=== PATIENT | female | born 1990 ===

== ENCOUNTER 2020-04-04 10:05 | Emergency (ER) | payer MEDICAID, SELFPAY ==
--- NOTE | 2020-04-04 10:13 | US_ITS ---
EXAMINATION: ULTRASOUND OB LESS THAN 14 WEEKS VENOUS CLINICAL INFORMATION: Positive hCG 680, 5 weeks with bleeding, IBS transfer, March 16. COMPARISON: None TECHNIQUE: Multiple 2-D grayscale and duplex Doppler transabdominal and transvaginal ultrasound images of the pelvis were obtained. FINDINGS: A single intrauterine gestation is seen with an average gestational sac measurement of 0.3 cm consistent with 4 weeks, 5 days gestation. A definitive embryonic pole was not visualized. A yolk sac was seen measuring 0.25 cm. A heart rate was not visualized. The cervix is closed unremarkable. There is mild free fluid in the cul-de-sac. No adnexal abnormality is identified. The left ovary measures 3.1 x 2.2 x 1.7 . The right ovary measures 3.5 x 1.8 x 1.7 cm. US/US OB <= 14 weeks fetus IMPRESSION: Intrauterine gestational sac showing a yolk sac, but no definitive embryonic pole. Gestational sac measurements are consistent with a 4 week, 5 day gestation. Continued monitoring of beta-hCG levels is recommended and short-term pelvic ultrasound is recommended in 2-3 weeks or as indicated to assess for viability.
--- NOTE | 2020-04-04 10:13 | US_ITS ---
EXAMINATION: ULTRASOUND OB LESS THAN 14 WEEKS VENOUS CLINICAL INFORMATION: Positive hCG 680, 5 weeks with bleeding, IBS transfer, March 16. COMPARISON: None TECHNIQUE: Multiple 2-D grayscale and duplex Doppler transabdominal and transvaginal ultrasound images of the pelvis were obtained. FINDINGS: A single intrauterine gestation is seen with an average gestational sac measurement of 0.3 cm consistent with 4 weeks, 5 days gestation. A definitive embryonic pole was not visualized. A yolk sac was seen measuring 0.25 cm. A heart rate was not visualized. The cervix is closed unremarkable. There is mild free fluid in the cul-de-sac. No adnexal abnormality is identified. The left ovary measures 3.1 x 2.2 x 1.7 . The right ovary measures 3.5 x 1.8 x 1.7 cm. US/US OB transvaginal IMPRESSION: Intrauterine gestational sac showing a yolk sac, but no definitive embryonic pole. Gestational sac measurements are consistent with a 4 week, 5 day gestation. Continued monitoring of beta-hCG levels is recommended and short-term pelvic ultrasound is recommended in 2-3 weeks or as indicated to assess for viability.
--- NOTE | 2020-04-04 10:13 | ED.PREGNANCY ---
HPI - General Chief complaint: Vaginal Bleeding Stated complaint: vag bleed - 5 weeks preg Time Seen by Provider: 04/04/20 10:13 Source: patient Mode of arrival: ambulatory Limitations: no limitations History of Present Illness Complaint: vaginal bleeding Onset (ago): day(s) (yesterday briefly then started again today) Pain Consistency: intermittent Severity: mild Quality: Cramping Radiation: pelvis Relieving factors: none Exacerbating factors: none Associated symptoms: vaginal bleeding (scant but brb saw a few tiny clots she states) Vaginal discharge: other (has white discharge since she is using progesterone vaginal suppositories) Vaginal bleeding: light Number of Weeks : 5 weeks had her IVF transfer on march 16 but embryo made 2 weeks prior OB History - Current : other (seen at [facility] [place] just had first IVF transfer) OB History - Previous Pregnancies: other (under IVF care) care: followed by OB Related Data : 1 Allergies Allergy/AdvReac Type Severity Reaction Status Date / Time No Known Allergies Allergy Verified 04/04/20 10:06 Review of Systems Review of Systems: Constitutional : No Fever, No Chills ENT/Mouth : No sore throat, No Rhinorrhea Eyes: No Eye Pain, No Redness Cardiovascular : No Chest Pain, No SOB Respiratory : No Cough, No Sputum, No Wheezing Gastrointestinal : no Nausea, No Vomiting, No Diarrhea, positive abdominal pain, Genitourinary : positive irregular bleeding, No Dysuria, No Urinary Frequency, positive pelvic pain Musculoskeletal : No Myalgias Skin : No rash Neuro : No Weakness, No Headache Psych : No Anxiety/Panic, No Depression Heme/Lymph: No bruising, No Lymphadenopathy Endocrine : No Polyuria, No Polydipsia All other systems reviewed and are negative [facility] Past Medical History Medical History Asthma : 1 Social History Social History (Updated 04/04/20 @ 10:34 by Silvia Rivera DO) Alcohol intake: never Smoking Status: Never smoker Use of substances other than those prescribed or required for medical reasons: No Advance Directives: No Advance Directives Information Provided: Yes Physical Exam Vital Signs: Vital Signs: Last Vital Signs Temp 98.2 F 04/04/20 12:39 Pulse 63 04/04/20 12:39 Resp 18 04/04/20 12:39 BP 120/65 12/20/20 12:39 Pulse Ox 98 04/04/20 12:39 Body Mass Index 34.7 Appearance: Alert. Oriented X3. No acute distress. Eyes: Pupils equal, round and reactive to light. ENT: Pharynx normal. Neck: Normal inspection. Neck supple. CVS: Normal heart rate and rhythm. Pulses normal. Respiratory: No respiratory distress. Breath sounds normal. Abdomen: Soft and nontender. : os closed, scant pink white discharge noted, no clots Skin: Skin warm and dry. Normal skin color. Normal skin turgor. Extremities: No lower extremity edema. No calf ttp Neuro: Oriented X 3. No motor deficit. No sensory deficit. Course Course Course Narrative: patient to leave prior to full US reports - Rh positive, will follow with her OB Procedures Perimortem Number of Weeks : 5 weeks had her IVF transfer on march 16 but embryo made 2 weeks prior MDM - OB/Uterine Contractions MDM Narrative Medical decision making narrative: 29 yo female G1 s/p IVF transfer on 03/16 - here with cramping and brb spotting, no recent intercourse - will need labs, RH status, quant and US to evaluate , dispo per results and findings. Lab Data Result diagrams: 04/04/20 10:42 04/04/20 10:42 Labs: Lab Results 04/04/20 04/04/20 04/04/20 Range/Units 10:42 10:42 10:42 WBC 11.5 H (4.8-10.8) X10*3/uL RBC 4.19 L (4.20-5.50) X10*6/uL Hgb 11.1 L (12.0-16.0) g/dl Hct 35.6 L (37-47) % MCV 85.0 (80-98) fL MCH 26.5 L (27.0-33.0) pg MCHC 31.2 (31.0-35.0) g/dl RDW 14.7 (11.0-16.0) % Plt Count 371 (160-400) X10*3/uL MPV 10.0 (9.4-12.3) fL Immature Gran % (Auto) 0.3 (0.0-0.4) % Neut % (Auto) 73.4 H (45-73) % Lymph % (Auto) 17.1 L (20-40) % [place] % (Auto) 5.0 (2-11) % Eos % (Auto) 3.7 (0-4) % Baso % (Auto) 0.5 (0-2) % Lymph # (Auto) 2.0 (1.2-4.9) X10*3/uL [place] # (Auto) 0.6 (0.1-1.2) X10*3/uL Eos # (Auto) 0.4 (0.0-0.4) X10*3/uL Baso # (Auto) 0.1 (0.0-0.2) X10*3/uL Abs Immat Gran (auto) 0.03 (0.00-0.03) X10*3/uL Absolute Neuts (auto) 8.4 H (2.0-8.3) X10*3/uL Absolute Nucleated RBC 0.000 (0.0-0.012) X10*3/uL Nucleated RBC % (auto) 0.0 (0.0-0.2) /100WBC Hold Blue Top SEE NOTE Sodium 138 (135-145) mmol/L Potassium 4.3 (3.3-5.1) mmol/l Chloride 105 (96-108) mmol/L Carbon Dioxide 25 (22-29) mmol/L Anion Gap 12 (12-20) BUN 13 (9-16) mg/dL Creatinine 0.78 (0.5-1.4) mg/dL Estim Creat Clear Calc 108.4 Estimated GFR > 60 Random Glucose 94 (60-115) mg/dL Calcium 8.7 (8.4-10.2) mg/dL Beta HCG, Quant 680 mIU/mL Urine Color Urine Appearance Urine pH (5.0-8.0) Ur Specific [place] (1.005-1.025) Urine Protein (NEG-TRACE) MG/DL Urine Glucose (UA) (NEG) MG/DL Urine Ketones (NEG) MG/DL Urine Blood (NEG) Urine Nitrite (NEG) Ur Leukocyte Esterase (NEG) Urine RBC (0) /HPF Urine WBC (0-4) /HPF Ur Squamous Epith Cells /LPF Amorphous Sediment /LPF Urine Bacteria /LPF Urine Mucus /LPF Blood Type 04/04/20 04/04/20 Range/Units 10:42 10:49 WBC (4.8-10.8) X10*3/uL RBC (4.20-5.50) X10*6/uL Hgb (12.0-16.0) g/dl Hct (37-47) % MCV (80-98) fL MCH (27.0-33.0) pg MCHC (31.0-35.0) g/dl RDW (11.0-16.0) % Plt Count (160-400) X10*3/uL MPV (9.4-12.3) fL Immature Gran % (Auto) (0.0-0.4) % Neut % (Auto) (45-73) % Lymph % (Auto) (20-40) % [place] % (Auto) (2-11) % Eos % (Auto) (0-4) % Baso % (Auto) (0-2) % Lymph # (Auto) (1.2-4.9) X10*3/uL [place] # (Auto) (0.1-1.2) X10*3/uL Eos # (Auto) (0.0-0.4) X10*3/uL Baso # (Auto) (0.0-0.2) X10*3/uL Abs Immat Gran (auto) (0.00-0.03) X10*3/uL Absolute Neuts (auto) (2.0-8.3) X10*3/uL Absolute Nucleated RBC (0.0-0.012) X10*3/uL Nucleated RBC % (auto) (0.0-0.2) /100WBC Hold Blue Top Sodium (135-145) mmol/L Potassium (3.3-5.1) mmol/l Chloride (96-108) mmol/L Carbon Dioxide (22-29) mmol/L Anion Gap (12-20) BUN (9-16) mg/dL Creatinine (0.5-1.4) mg/dL Estim Creat Clear Calc Estimated GFR Random Glucose (60-115) mg/dL Calcium (8.4-10.2) mg/dL Beta HCG, Quant mIU/mL Urine Color DARK YELLOW Urine Appearance HAZY Urine pH 6.0 (5.0-8.0) Ur Specific [place] >= 1.030 H (1.005-1.025) Urine Protein TRACE (NEG-TRACE) MG/DL Urine Glucose (UA) NEG (NEG) MG/DL Urine Ketones NEG (NEG) MG/DL Urine Blood 3+ H (NEG) Urine Nitrite NEG (NEG) Ur Leukocyte Esterase NEG (NEG) Urine RBC 15-29 H (0) /HPF Urine WBC 1-4 (0-4) /HPF Ur Squamous Epith Cells 2+ /LPF Amorphous Sediment 2+ /LPF Urine Bacteria TRACE /LPF Urine Mucus 3+ /LPF Blood Type A Positive Discharge Plan Discharge Clinical Impression: Threatened Patient Disposition: Home, Self-Care Instructions: Threatened Miscarriage (ED) Additional Instructions: return to ED for any worsening symptoms or concerns your quant was 680 it needs to be rechecked in 2 days, you left prior to your formal US read please call your OBGYN tomorrow AM - from prelim there is IUP with correlates with your dates, no obvious ectopic avoid strenuous activity and no intercourse Stand Alone Forms: Work/School Release
[2020-04-04 10:22] VITALS: BP 120/64; PULSE 74; RESP 16; TEMP 36.6; O2SAT 98; BMI 34.7
[2020-04-04 10:53] LABS: MANUAL DIFF FLAG NO
[2020-04-04 11:00] LABS: Basophils Absolute Auto 0.1 X10*3/uL (0.0-0.2); Basophils Percent Auto 0.5 % (0-2); Eosinophils Absolute Auto 0.4 X10*3/uL (0.0-0.4); Eosinophils Percent Auto 3.7 % (0-4); Hematocrit 35.6 % (37-47); Hemoglobin 11.1 g/dl (12.0-16.0); Imm Gran Abs Auto 0.03 X10*3/uL (0.00-0.03); Imm Gran Pct Auto 0.3 % (0.0-0.4); Lymphocytes Percent Auto 17.1 % (20-40); Mean Corpuscular HGB Conc 31.2 g/dl (31.0-35.0); Mean Corpuscular Hemoglobin 26.5 pg (27.0-33.0); Monocytes Absolute Auto 0.6 X10*3/uL (0.1-1.2); Neutrophils Absolute Auto 8.4 X10*3/uL (2.0-8.3); Neutrophils Percent Auto 73.4 % (45-73); Platelet Count 371 X10*3/uL (160-400); Red Blood Count 4.19 X10*6/uL (4.20-5.50); Red Cell Distribution Width 14.7 % (11.0-16.0); White Blood Count 11.5 X10*3/uL (4.8-10.8)
[2020-04-04 11:08] LABS: Glucose Urine UA NEG (NEG); Leukocyte Esterase Urine NEG (NEG); Nitrite Urine NEG (NEG); Specific Gravity - Urine >= 1.030 (1.005-1.025); Urine Blood 3+ (NEG); Urine Ketones NEG (NEG); Urine Protein TRACE MG/DL (NEG-TRACE)
[2020-04-04 11:10] LABS: Appearance Urine HAZY; Color Urine DARK YELLOW
[2020-04-04 11:18] LABS: Amorphous Sediment Urine 2+ /LPF; Bacteria Urine TRACE /LPF; Mucus Urine 3+ /LPF; Squamous Epithelial Cell Urine 2+ /LPF
[2020-04-04 11:25] VITALS: BP 118/65; PULSE 71; RESP 18; TEMP 36.7; O2SAT 98
[2020-04-04 11:28] LABS: Anion Gap 12 (12-20); Blood Urea Nitrogen 13 mg/dL (9-16); Calcium 8.7 mg/dL (8.4-10.2); Carbon Dioxide 25 mmol/L (22-29); Chloride 105 mmol/L (96-108); Creatinine Clr Calc Pharmacy 108.4; Estimated Glomerular Filt Rate > 60; Glucose Random 94 mg/dL (60-115); Potassium 4.3 mmol/l (3.3-5.1); Sodium 138 mmol/L (135-145)
[2020-04-04 11:35] LABS: HCG Quantitative 680 mIU/mL
[2020-04-04 12:39] VITALS: BP 120/65; PULSE 63; RESP 18; TEMP 36.8; O2SAT 98
== END 2020-04-04 13:40 | disposition home or self-care (01) ==
PROVIDERS: Emergency Provider Emergency Medicine; PCP Family Medicine
DX: O20.0 Threatened abortion (principal); Z3A.01 Less than 8 weeks gestation of pregnancy
CPT/HCPCS: 36415; 76801; 76817; 80048; 81001; 84702; 85025; 86900; 86901; 99284

== ENCOUNTER 2020-04-11 15:30 | Emergency (ER) | payer MEDICAID, SELFPAY ==
[2020-04-11 17:43] VITALS: BP 135/73; PULSE 86; RESP 18; TEMP 37; O2SAT 100; BMI 34.7
--- NOTE | 2020-04-11 20:23 | US_ITS ---
EXAMINATION: ULTRASOUND PELVIC, COMPLETE CLINICAL INFORMATION: Vaginal bleeding. IVF . COMPARISON: Pelvic ultrasound 02/18/2018 TECHNIQUE: Transvaginal: Used to better visualize pelvic structures Transabdominal: Not adequate for visualization Spectral Doppler and color Doppler exam was utilized. Clinical: Transfer date 12/07/2020. Gestational age 5 weeks 5 days. FINDINGS: UTERUS: There is a single intrauterine gestation. There is a intrauterine gestational sac with a yolk sac. There is a pole. heart rate 120 bpm. [place]-rump length of the pole is 0.33 cm. Dating by this measurement is 6 weeks 0 days. JUANA 12/05/2020. There is a small subchorionic bleed adjacent to the gestational sac. There is nabothian cysts at the cervix ADNEXA: Ovarian vascularity:Doppler demonstrates both arterial and venous vascular flow in the right and left ovary. No evidence of ovarian torsion. Right Ovary: 3 x 2 x 2.4 cm. Right ovarian volume 7.5 mL Left Ovary: 2.7 x 1.7 x 1.9 cm. Left ovarian volume 4.6 mL Cul-de-sac: No Fluid US/US OB limited IMPRESSION: 1. Single intrauterine gestation with estimated gestational age by this exam of 6 weeks 0 days. JUANA 12/05/2020. 2. Small subchorionic bleed.
--- NOTE | 2020-04-11 20:24 | US_ITS ---
EXAMINATION: ULTRASOUND PELVIC, COMPLETE CLINICAL INFORMATION: Vaginal bleeding. IVF . COMPARISON: Pelvic ultrasound 02/18/2018 TECHNIQUE: Transvaginal: Used to better visualize pelvic structures Transabdominal: Not adequate for visualization Spectral Doppler and color Doppler exam was utilized. Clinical: Transfer date 12/07/2020. Gestational age 5 weeks 5 days. FINDINGS: UTERUS: There is a single intrauterine gestation. There is a intrauterine gestational sac with a yolk sac. There is a pole. heart rate 120 bpm. [place]-rump length of the pole is 0.33 cm. Dating by this measurement is 6 weeks 0 days. JUANA 12/05/2020. There is a small subchorionic bleed adjacent to the gestational sac. There is nabothian cysts at the cervix ADNEXA: Ovarian vascularity:Doppler demonstrates both arterial and venous vascular flow in the right and left ovary. No evidence of ovarian torsion. Right Ovary: 3 x 2 x 2.4 cm. Right ovarian volume 7.5 mL Left Ovary: 2.7 x 1.7 x 1.9 cm. Left ovarian volume 4.6 mL Cul-de-sac: No Fluid US/US OB transvaginal IMPRESSION: 1. Single intrauterine gestation with estimated gestational age by this exam of 6 weeks 0 days. JUANA 12/05/2020. 2. Small subchorionic bleed.
--- NOTE | 2020-04-11 20:25 | ED.PREGNANCY ---
HPI - General Chief complaint: Abdominal Pain Stated complaint: vaginal bleeding Time Seen by Provider: 04/11/20 20:16 Source: patient Mode of arrival: ambulatory Limitations: no limitations History of Present Illness HPI Narrative: Patient comes to the emergency room complaining of vaginal bleeding. Patient estimates that she is 6 weeks of gestational age, she is a . Patient states since March 16 she has been spotting, on March 16 patient had an in-vitro fertilization transfer. Patient was seen here on April 04, ultrasound showed room sac but no problem. Patient states on April 08 she went to see her OBGYN in [place], she was told that there was a pole and a heartbeat. Patient states she has used 3-4 panty liners starting at 15:00 today, complaining of cramping Related Data Allergies Allergy/AdvReac Type Severity Reaction Status Date / Time No Known Allergies Allergy Verified 04/04/20 10:06 Review of Systems Review of Systems: Constitutional : No Weight loss, No Fever, No Chills, No Night Sweats, No Fatigue, No Malaise ENT/Mouth : No Hearing loss, No Ear Pain, No Nasal Congestion, No Sinus Pain, No Hoarseness, No sore throat, No Rhinorrhea, No Swallowing Difficulty Eyes: No Eye Pain, No Swelling, No Redness, No Foreign Body, No Discharge, No Vision Changes Cardiovascular : No Chest Pain, No SOB, No Dyspnea on Exertion, No Orthopnea, No Edema, No Palpitations Respiratory : No Cough, No Sputum, No Wheezing, No Smoke Exposure, No Dyspnea Gastrointestinal : No Nausea, No Vomiting, No Diarrhea, No Constipation, No abdominal Pain, No Hematochezia, No Melena Genitourinary : Denies dysuria, frequency. Patient complaining of cramping and vaginal bleeding Musculoskeletal : No joint pain, No Myalgias, No Joint Swelling Skin : No Skin Lesions, No rash Neuro : No Weakness, No Numbness, No Paresthesias, No Loss of Consciousness, No Dizziness, No Headache Psych : No Anxiety/Panic, No Depression, No SI/HI/AH/VH, No Social Issues, Heme/Lymph: No Bruising, No Bleeding,No Lymphadenopathy Endocrine : No Polyuria, No Polydipsia, No Temperature Intolerance PMFSH Past Medical History Medical History Asthma Social History Social History (Updated 04/04/20 @ 10:34 by Silvia Rivera DO) Alcohol intake: never Smoking Status: Never smoker Use of substances other than those prescribed or required for medical reasons: No Advance Directives: No Advance Directives Information Provided: No Physical Exam Vital Signs: Vital Signs: Last Vital Signs Temp 98.5 F 04/11/20 22:19 Pulse 82 04/11/20 22:19 Resp 16 04/11/20 22:19 BP 110/62 04/11/20 22:19 Pulse Ox 99 04/11/20 22:19 Body Mass Index 34.7 Appearance: Alert. Oriented X3. No acute distress. Eyes: Pupils equal, round and reactive to light. ENT: Pharynx normal. Neck: Normal inspection. Neck supple. No lymph nodes noted. No crepitus CVS: Normal heart rate and rhythm. Pulses normal. Normal S1 and S2 Respiratory: No respiratory distress. Breath sounds normal. No Wheezing. No rales Abdomen: Soft and nontender. No rigidity. No distention. good BS x4 : Moderate amount of blood in the vaginal canal, there are strands of mucus material protruding from the cervix, no active cervical bleeding Skin: Skin warm and dry. Normal skin color. Normal skin turgor. Extremities: No lower extremity edema. No lower extremity edema. No Lacerations. No Rash Neuro: Oriented X 3. No motor deficit. No sensory deficit. Moving all extermities. No slurred speech. Course Course Course Narrative: I discussed the ultrasound with the patient, I explained to her that there is a small subchorionic bleed, at this time, there is a pole with heart rate present. However, the subchorionic bleed may be threatened the . Patient aware that has her could be threatened right knee is subchorionic bleed, however, she may still have a full-term . At this time prognosis is guarded. MDM - OB/Uterine Contractions Lab Data Result diagrams: 04/11/20 20:34 04/11/20 20:34 Labs: Lab Results 04/11/20 04/11/20 04/11/20 Range/Units 20:34 20:34 20:34 WBC 17.3 H (4.8-10.8) X10*3/uL RBC 4.61 (4.20-5.50) X10*6/uL Hgb 12.4 (12.0-16.0) g/dl Hct 39.0 (37-47) % MCV 84.6 (80-98) fL MCH 26.9 L (27.0-33.0) pg MCHC 31.8 (31.0-35.0) g/dl RDW 14.6 (11.0-16.0) % Plt Count 442 H (160-400) X10*3/uL MPV 9.8 (9.4-12.3) fL Immature Gran % (Auto) 0.3 (0.0-0.4) % Neut % (Auto) 69.7 (45-73) % Lymph % (Auto) 21.7 (20-40) % [place] % (Auto) 4.8 (2-11) % Eos % (Auto) 2.9 (0-4) % Baso % (Auto) 0.6 (0-2) % Lymph # (Auto) 3.8 (1.2-4.9) X10*3/uL [place] # (Auto) 0.8 (0.1-1.2) X10*3/uL Eos # (Auto) 0.5 H (0.0-0.4) X10*3/uL Baso # (Auto) 0.1 (0.0-0.2) X10*3/uL Abs Immat Gran (auto) 0.05 H (0.00-0.03) X10*3/uL Absolute Neuts (auto) 12.1 H (2.0-8.3) X10*3/uL Absolute Nucleated RBC 0.000 (0.0-0.012) X10*3/uL Nucleated RBC % (auto) 0.0 (0.0-0.2) /100WBC Sodium 137 (135-145) mmol/L Potassium 4.1 (3.3-5.1) mmol/l Chloride 105 (96-108) mmol/L Carbon Dioxide 25 (22-29) mmol/L Anion Gap 11 L (12-20) BUN 9 (9-16) mg/dL Creatinine 0.79 (0.5-1.4) mg/dL Estim Creat Clear Calc 107.0 Estimated GFR > 60 Random Glucose 105 (60-115) mg/dL Calcium 8.8 (8.4-10.2) mg/dL Total Bilirubin 0.3 (0.0-1.0) mg/dL Direct Bilirubin < 0.2 (0.0-0.5) mg/dL AST 13 (5-31) U/L ALT 14 (0-31) U/L Alkaline Phosphatase 73 (39-117) U/L Total Protein 6.9 (6.5-8.0) g/dL Albumin 4.2 (3.5-5.0) g/dL Beta HCG, Quant 4911 mIU/mL Urine Color Urine Appearance Urine pH (5.0-8.0) Ur Specific [place] (1.005-1.025) Urine Protein (NEG-TRACE) MG/DL Urine Glucose (UA) (NEG) MG/DL Urine Ketones (NEG) MG/DL Urine Blood (NEG) Urine Nitrite (NEG) Ur Leukocyte Esterase (NEG) Urine RBC (0) /HPF Urine WBC (0-4) /HPF Ur Squamous Epith Cells /LPF Urine Bacteria /LPF Urine Mucus /LPF Blood Type A Positive 04/11/20 Range/Units 20:35 WBC (4.8-10.8) X10*3/uL RBC (4.20-5.50) X10*6/uL Hgb (12.0-16.0) g/dl Hct (37-47) % MCV (80-98) fL MCH (27.0-33.0) pg MCHC (31.0-35.0) g/dl RDW (11.0-16.0) % Plt Count (160-400) X10*3/uL MPV (9.4-12.3) fL Immature Gran % (Auto) (0.0-0.4) % Neut % (Auto) (45-73) % Lymph % (Auto) (20-40) % [place] % (Auto) (2-11) % Eos % (Auto) (0-4) % Baso % (Auto) (0-2) % Lymph # (Auto) (1.2-4.9) X10*3/uL [place] # (Auto) (0.1-1.2) X10*3/uL Eos # (Auto) (0.0-0.4) X10*3/uL Baso # (Auto) (0.0-0.2) X10*3/uL Abs Immat Gran (auto) (0.00-0.03) X10*3/uL Absolute Neuts (auto) (2.0-8.3) X10*3/uL Absolute Nucleated RBC (0.0-0.012) X10*3/uL Nucleated RBC % (auto) (0.0-0.2) /100WBC Sodium (135-145) mmol/L Potassium (3.3-5.1) mmol/l Chloride (96-108) mmol/L Carbon Dioxide (22-29) mmol/L Anion Gap (12-20) BUN (9-16) mg/dL Creatinine (0.5-1.4) mg/dL Estim Creat Clear Calc Estimated GFR Random Glucose (60-115) mg/dL Calcium (8.4-10.2) mg/dL Total Bilirubin (0.0-1.0) mg/dL Direct Bilirubin (0.0-0.5) mg/dL AST (5-31) U/L ALT (0-31) U/L Alkaline Phosphatase (39-117) U/L Total Protein (6.5-8.0) g/dL Albumin (3.5-5.0) g/dL Beta HCG, Quant mIU/mL Urine Color YELLOW Urine Appearance HAZY Urine pH 6.0 (5.0-8.0) Ur Specific [place] >= 1.030 H (1.005-1.025) Urine Protein TRACE (NEG-TRACE) MG/DL Urine Glucose (UA) NEG (NEG) MG/DL Urine Ketones NEG (NEG) MG/DL Urine Blood 3+ H (NEG) Urine Nitrite NEG (NEG) Ur Leukocyte Esterase NEG (NEG) Urine RBC 30-49 H (0) /HPF Urine WBC 1-4 (0-4) /HPF Ur Squamous Epith Cells 1+ /LPF Urine Bacteria 1+ /LPF Urine Mucus 2+ /LPF Blood Type Imaging Data Obstetric ultrasound: Radiologist's impression: UTERUS: There is a single intrauterine gestation. There is a intrauterine gestational sac with a yolk sac. There is a pole. heart rate 120 bpm. [place]-rump length of the pole is 0.33 cm. Dating by this measurement is 6 weeks 0 days. JUANA 12/05/2020. There is a small subchorionic bleed adjacent to the gestational sac. There is nabothian cysts at the cervix ADNEXA: Ovarian vascularity:Doppler demonstrates both arterial and venous vascular flow in the right and left ovary. No evidence of ovarian torsion. Right Ovary: 3 x 2 x 2.4 cm. Right ovarian volume 7.5 mL Left Ovary: 2.7 x 1.7 x 1.9 cm. Left ovarian volume 4.6 mL Cul-de-sac: No Fluid US/US OB transvaginal IMPRESSION: 1. Single intrauterine gestation with estimated gestational age by this exam of 6 weeks 0 days. JUANA 12/05/2020. 2. Small subchorionic bleed. Discharge Plan Discharge Clinical Impression: Threatened Patient Disposition: Home, Self-Care Instructions: Threatened Miscarriage (ED) Additional Instructions: Your ultrasound shows that there is a small subchorionic bleed. The fetus is present in the uterus and does have a heart rate present. You are 6 weeks 0 days by ultrasound. The subchorionic bleed could cause a loss of , but a normal could still be possible. You need pelvic rest, no sexual intercourse. If you have any worsening bleeding, worsening cramping, any new symptoms, please return to the emergency room or call 911. 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
[2020-04-11 20:41] LABS: Basophils Absolute Auto 0.1 X10*3/uL (0.0-0.2); Basophils Percent Auto 0.6 % (0-2); Eosinophils Absolute Auto 0.5 X10*3/uL (0.0-0.4); Eosinophils Percent Auto 2.9 % (0-4); Hemoglobin 12.4 g/dl (12.0-16.0); Imm Gran Abs Auto 0.05 X10*3/uL (0.00-0.03); Imm Gran Pct Auto 0.3 % (0.0-0.4); Lymphocytes Absolute Auto 3.8 X10*3/uL (1.2-4.9); Lymphocytes Percent Auto 21.7 % (20-40); MANUAL DIFF FLAG NO; Mean Corpuscular HGB Conc 31.8 g/dl (31.0-35.0); Mean Corpuscular Hemoglobin 26.9 pg (27.0-33.0); Mean Corpuscular Volume 84.6 fL (80-98); Mean Platelet Volume 9.8 fL (9.4-12.3); Monocytes Absolute Auto 0.8 X10*3/uL (0.1-1.2); Monocytes Percent Auto 4.8 % (2-11); Neutrophils Absolute Auto 12.1 X10*3/uL (2.0-8.3); Neutrophils Percent Auto 69.7 % (45-73); Platelet Count 442 X10*3/uL (160-400); Red Blood Count 4.61 X10*6/uL (4.20-5.50); Red Cell Distribution Width 14.6 % (11.0-16.0); White Blood Count 17.3 X10*3/uL (4.8-10.8)
[2020-04-11 20:59] LABS: Glucose Urine UA NEG (NEG); Leukocyte Esterase Urine NEG (NEG); Nitrite Urine NEG (NEG); Specific Gravity - Urine >= 1.030 (1.005-1.025); Urine Blood 3+ (NEG); Urine Ketones NEG (NEG); Urine Protein TRACE MG/DL (NEG-TRACE)
[2020-04-11 21:03] LABS: Alanine Aminotransferase 14 U/L (0-31); Albumin Level 4.2 g/dL (3.5-5.0); Alkaline Phosphatase 73 U/L (39-117); Anion Gap 11 (12-20); Aspartate Amino Transferase 13 U/L (5-31); Bilirubin Direct < 0.2 mg/dL (0.0-0.5); Bilirubin Total 0.3 mg/dL (0.0-1.0); Blood Urea Nitrogen 9 mg/dL (9-16); Calcium 8.8 mg/dL (8.4-10.2); Carbon Dioxide 25 mmol/L (22-29); Chloride 105 mmol/L (96-108); Estimated Glomerular Filt Rate > 60; Glucose Random 105 mg/dL (60-115); Potassium 4.1 mmol/l (3.3-5.1); Sodium 137 mmol/L (135-145); Total Protein 6.9 g/dL (6.5-8.0)
[2020-04-11 21:04] LABS: Appearance Urine HAZY; Color Urine YELLOW
[2020-04-11 21:09] LABS: HCG Quantitative 4911 mIU/mL
[2020-04-11 21:17] LABS: Bacteria Urine 1+ /LPF; Mucus Urine 2+ /LPF; RBC Urine 30-49 /HPF (0); Squamous Epithelial Cell Urine 1+ /LPF
[2020-04-11 22:19] VITALS: BP 110/62; PULSE 82; RESP 16; TEMP 36.9; O2SAT 99
== END 2020-04-11 23:17 | disposition home or self-care (01) ==
PROVIDERS: Emergency Provider Emergency Medicine; PCP Family Medicine
DX: O20.0 Threatened abortion (principal); Z3A.01 Less than 8 weeks gestation of pregnancy
CPT/HCPCS: 36415; 76815; 76817; 80048; 80076; 81001; 81003; 84702; 85025; 86900; 86901; 99284; 99285

== ENCOUNTER 2020-09-03 12:05 | Outpatient (REF) | payer MEDICAID, SELFPAY ==
[2020-09-03 12:25] LABS: COVID-19 Test Negative (Negative)
== END 2020-09-03 12:06 | disposition home or self-care (01) ==
LOC: HO.LAB 12:05
PROVIDERS: Visit Provider Internal Medicine
DX: Z20.822 Contact with and (suspected) exposure to COVID-19 (principal)
CPT/HCPCS: 36415; 87635; C9803

== ENCOUNTER → 2020-09-03 12:39 | Outpatient (BNVA) | payer SELFPAY | PROVIDERS: PCP Family Medicine | DX: Z11.1 Encounter for screening for respiratory tuberculosis (principal) ==

== ENCOUNTER 2020-10-27 05:07 | Emergency (ER) | payer MEDICAID, SELFPAY ==
[2020-10-27 05:21] VITALS: BP 126/67; PULSE 107; RESP 18; TEMP 37.3; O2SAT 96; BMI 36.6
[2020-10-27 05:46] LABS: IDNOW Serial# 08D9AD1C
[2020-10-27 05:47] LABS: COVID-19 Test Negative (Negative)
--- NOTE | 2020-10-27 06:33 | ED.URI ---
HPI - URI/Sore Throat General Chief Complaint: Upper Respiratory Symptoms Stated Complaint: congested, SoB Time Seen by Provider: 10/27/20 06:33 Source: patient Mode of arrival: ambulatory Limitations: no limitations History of Present Illness MD elicited complaint: cough and nasal congestion Pertinent past history: asthma Onset (ago): day(s) (last several ) Consistency: progressively worsening Severity: moderate Description of mucous: clear Able to tolerate fluids by mouth: Yes Exacerbating factors: nothing Relieving factors: other (tried her INH with some relief) Associated symptoms: chills, nasal congestion, cough and shortness of breath Treatments prior to arrival: other Related Data Previous Rx's Medication Instructions Recorded albuterol sulfate 2 puff INHALATION QID PRN #6.7 g 10/27/20 amoxicillin 500 mg PO Q12H 7 Days #14 cap 10/27/20 prednisone 40 mg PO DAILY 4 Days #8 tab 10/27/20 Allergies Allergy/AdvReac Type Severity Reaction Status Date / Time No Known Allergies Allergy Verified 04/04/20 10:06 Review of Systems Review of Systems: Constitutional : No Fever, No Chills ENT/Mouth : No sore throat, pos Rhinorrhea, No Swallowing Difficulty Eyes: No Eye Pain, No Swelling, No Redness Cardiovascular : No Chest Pain, positive SOB, No Orthopnea, no Edema Respiratory :pos Cough, pos Sputum, pos Wheezing, positive dyspnea Gastrointestinal : No Nausea, No Vomiting, No Diarrhea, No abdominal Pain, No Hematochezia, No Melena Genitourinary : No Dysuria, No Urinary Frequency, No Hematuria Musculoskeletal : No joint pain, No Myalgias Skin : No Skin Lesions, No rash Neuro : No Weakness, No Numbness, No Dizziness, No Headache Psych : No Anxiety/Panic, No Depression Heme/Lymph: No Bruising, No Lymphadenopathy Endocrine : No Polyuria, No Polydipsia All other systems reviewed and are negative [facility] Past Medical History Medical History Asthma Social History Social History (Updated 10/27/20 @ 06:56 by Silvia Rivera DO) Alcohol intake: never Patient Tobacco Use Status: Never used Tobacco Advance Directives: No Patient : Yes Physical Exam Vital Signs: Vital Signs: Last Vital Signs Temp 99.2 F 10/27/20 05:21 Pulse 105 H 10/27/20 07:00 Resp 18 10/27/20 05:21 BP 126/67 10/27/20 05:21 Pulse Ox 96 10/27/20 05:21 Body Mass Index 36.6 Appearance: Alert. Oriented X3. No acute distress. Eyes: Pupils equal, round and reactive to light. ENT: Pharynx normal. Neck: Normal inspection. Neck supple. CVS: Normal heart rate and rhythm. Pulses normal. Respiratory: No respiratory distress. Breath sounds mild diffuse end exp wheezes Abdomen: Soft and non-tender. Skin: Skin warm and dry. Normal skin color. Normal skin turgor. Extremities: No lower extremity edema. No calf ttp Neuro: Oriented X 3. No motor deficit. No sensory deficit. Course Course Course Narrative: sats 98%, lungs are CTAB, stable for DC feels better MDM - URI/Sore Throat MDM Narrative Medical decision making narrative: 30 yo female approx 4 months here with hx of asthma and URI symptoms no signs of edema, no chest pain to suggest CHF or PE - at this time needs neb, steroids and amoxicillin for bronchitis, no resp distress, not toxic, URI suspected Lab Data Labs: Lab Results 10/27/20 Range/Units 05:25 COVID-19 (LINDY) Negative (Negative) COVID-19 Clin Com See Note Discharge Plan Discharge Clinical Impression: Bronchitis Patient Disposition: Home, Self-Care Instructions: Acute Bronchitis (ED) Additional Instructions: return to ED for any worsening symptoms or concerns COVID was negative please follow up with your doctor if you are improving Prescriptions: New amoxicillin 500 mg capsule 500 mg PO Q12H 7 Days Qty: 14 RF: 0 prednisone 20 mg tablet 40 mg PO DAILY 4 Days Qty: 8 RF: 0 albuterol sulfate 90 mcg/actuation HFA aerosol inhaler 2 puff inhalation QID PRN (Reason: shortness of breath or wheezing) Qty: 6.7 RF: 0 Stand Alone Forms: Work/School Release
[2020-10-27] MEDS: Albuterol Sulfate (0.083%) 2.5 MG/3 ML VIAL.NEB INHALE (06:53)
[2020-10-27 07:00] VITALS: PULSE 105; O2SAT 96
[2020-10-27] MEDS: predniSONE 20 MG TABLET 40 MG PO (07:11)
[2020-10-27] MEDS: Amoxicillin 500 MG CAPSULE PO (07:12)
== END 2020-10-27 07:20 | disposition home or self-care (01) ==
PROVIDERS: Emergency Provider Emergency Medicine; PCP Family Medicine
DX: J20.9 Acute bronchitis, unspecified (principal); R06.02 Shortness of breath; Z20.822 Contact with and (suspected) exposure to COVID-19; Z79.899 Other long term (current) drug therapy
CPT/HCPCS: 36415; 87635; 94640; 99283

== ENCOUNTER 2021-01-06 17:14 | Emergency (ER) | payer MEDICAID, SELFPAY ==
[2021-01-06 18:28] VITALS: BP 123/73; PULSE 101; RESP 20; TEMP 36.8; O2SAT 98; BMI 38.7
== END 2021-01-06 21:22 | disposition left against medical advice (07) ==
PROVIDERS: Emergency Provider Emergency Medicine; PCP Family Medicine
DX: O26.93 Pregnancy related conditions, unspecified, third trimester (principal); Z3A.30 30 weeks gestation of pregnancy
CPT/HCPCS: 99281

== ENCOUNTER 2021-01-07 09:11 | Emergency (ER) | payer MEDICAID, SELFPAY ==
--- NOTE | ~2021-01-07 | XR_ITS ---
EXAMINATION: XR CHEST CLINICAL INFORMATION: Covid pneumonia COMPARISON: Previous chest x-ray March 2015 TECHNIQUE: Frontal view of the chest was obtained. FINDINGS: The cardiac and mediastinal contours are normal. There are new nodular opacities seen in the right upper lung questionable for infiltrate. There is no pleural effusion or pneumothorax. Bony structures are unremarkable. XR/XR chest 1V IMPRESSION: Question right upper lobe infiltrate.
--- NOTE | ~2021-01-07 | NM_ITS ---
EXAMINATION: DC LUNG IMAGE PERFUSION CLINICAL INFORMATION: 38 weeks , COVID positive with hemoptysis. COMPARISON: None TECHNIQUE: Following intravenous administration of 1.5 mCi of technetium 99 and MAA, imaging of both lungs were obtained in multiple projections. Ventilation study was not performed. FINDINGS: On ventilation study there is normal aeration of all segments of both lungs without any segmental or subsegmental defects. Ventilation study was not performed. NM/DC pul perfusion IMPRESSION: Normal perfusion study. No evidence of PE.
[2021-01-07 09:39] VITALS: BP 124/61; PULSE 98; RESP 18; TEMP 36.7; O2SAT 98; BMI 38.7
[2021-01-07 09:49] VITALS: O2SAT 98
--- NOTE | 2021-01-07 10:06 | PM.OBCN ---
OB Consult Note - HPI Data Service Date: 01/07/21 Primary Care Provider: Ave Sol MD Narrative I was consulted at 10:05 a.m. regarding Seda Berg who is a 30 year old female who presented the emergency room with COVID symptoms, hemoptysis, lower abdominal cramping Stable vital signs afebrile, 98% on room air. Chest x-ray done showed question upper right lobe infiltrate [employer] - Review of Systems Review of Systems ROS Unobtainable: All systems reviewed & are unremarkable except as noted in HPI and below OB PMFSH Past Medical History Medical History Asthma Social History Social History (Updated 10/27/20 @ 06:56 by Silvia Rivera DO) Alcohol intake: never Patient Tobacco Use Status: Never used Tobacco Use of substances other than those prescribed or required for medical reasons: No Advance Directives: No Advance Directives Information Provided: No Patient : Yes Meds Allergies Allergy/AdvReac Type Severity Reaction Status Date / Time No Known Allergies Allergy Verified 01/07/21 09:39 OB Flowsheet OB Flowsheet & Tools History 1 Elective abortions Para Spontaneous abortions Hx # Term Pregnancies Ectopic pregnancies Hx # Pregnancies Multiple births OB - CN: A/P Assessment and Plan (1) : Status: Acute (2) Upper respiratory tract infection: Status: Acute Assessment and Plan: Recommended immediate transfer to [facility] for further management due to lack of monitoring for contractions and fetus secondary to lack of availability of OB unit at [facility]. I was called on the phone regarding the patient, did not see nor examine the patient.
--- NOTE | 2021-01-07 10:18 | ED.URI ---
HPI - URI/Sore Throat General Chief Complaint: Dyspnea Stated Complaint: sob covid + Time Seen by Provider: 01/07/21 09:16 Source: patient Mode of arrival: ambulatory Limitations: no limitations History of Present Illness HPI Narrative: Patient presents to the ED for URI/covid like symptoms four 4 days and also lower abdominal cramping for the past 4 days. Patient states chills, bodyaches, dry cough, and hemoptysis. Patient denies any dysuria, hematuria, flank pain, fever, chills or vaginal bleeding/discharge. MD elicited complaint: cough Related Data Previous Rx's Medication Instructions Recorded albuterol sulfate 90 mcg/actuation 2 puff INHALATION QID PRN #6.7 g 10/27/20 aerosol inhaler amoxicillin 500 mg capsule 500 mg PO Q12H 7 Days #14 cap 10/27/20 prednisone 20 mg tablet 40 mg PO DAILY 4 Days #8 tab 10/27/20 Allergies Allergy/AdvReac Type Severity Reaction Status Date / Time No Known Allergies Allergy Verified 01/07/21 09:39 Review of Systems Review of Systems: Yes all other systems are reviewed and are negative Constitutional: Constitutional: Reports as per HPI, Reports no additional constitutional complaints, Reports body ache(s) and Reports chills Eyes: Eyes: Reports as per HPI and Reports no additional eye complaints ENT: Reports system reviewed and no additional complaints, except as documented and Reports as per HPI Cardiovascular: Cardiovascular: Reports as per HPI, Reports no additional cardiovascular complaints, Denies chest pain and Reports dyspnea Respiratory: Respiratory: Reports cough, Reports hemoptysis and Reports dyspnea Gastrointestinal: Gastrointestinal: Reports as per HPI, Reports no additional gastrointestinal complaints and Reports GI cramping Genitourinary: Genitourinary: Reports no additional female genitourinary complaints and Reports as per HPI Musculoskeletal: Musculoskeletal: Reports no additional musculoskeletal complaints and Reports as per HPI Neurologic: Reports system reviewed and no additional complaints, except as documented and Reports as per HPI Psychiatric: Psychiatric: Reports no additional psychiatric complaints and Reports as per HPI PMFSH Past Medical History Medical History Asthma Social History Social History (Updated 10/27/20 @ 06:56 by Silvia Rivera DO) Alcohol intake: never Patient Tobacco Use Status: Never used Tobacco Use of substances other than those prescribed or required for medical reasons: No Advance Directives: No Advance Directives Information Provided: No Patient : Yes Physical Exam Vital Signs: Vital Signs: Last Vital Signs Temp 98.1 F 01/07/21 12:00 Pulse 81 01/07/21 12:00 Resp 18 01/07/21 12:00 BP 113/60 01/07/21 12:00 Pulse Ox 100 01/07/21 12:00 Body Mass Index 38.7 Const: General: cooperative, healthy appearing, comfortable, no acute distress, well developed, alert and awake; No Physically active Orientation/consciousness: patient oriented x3 HENMT: Head: Yes normal to inspection, Yes No palpable skull fracture present, Yes normocephalic and No atraumatic Eyes: General: appearance normal, both eyes and all related structures Neck: Neck: Yes normal visual inspection, Yes full ROM, Yes no lymphadenopathy, Yes no meningeal signs, Yes trachea midline, Yes supple and No tender Chest: Chest palpation & inspection: normal inspection of the chest and normal palpation of entire chest wall Resp: Effort & Inspection: normal respiratory effort and able to speak in complete sentences Auscultation: clear to auscultation bilaterally Cardio: Jugular venous distension: no JVD Heart sounds: S1 normal heart sound present and S2 normal heart sound present GI: Inspection: Yes normal to inspection and No abdominal wall ecchymosis Palpation (GI): Soft to palpation, not firm, nontender, no guarding and not rigid : General: No CVA tenderness and Yes no CVA tenderness Back/Spine/Pelvis: Back: no CVA tenderness, No CVA tenderness and No back tenderness Skin: General skin exam: no rashes or lesions noted and elasticity normal Neuro: General: patient oriented x3, gait normal, no meningeal signs and CN's II-XI intact bilaterally Extrem: Other: Lower extremity negative for any swelling, pitting edema, calf tenderness. General: Yes normal to inspection and Yes full ROM Psych: Appearance: grossly normal, well kempt and not disheveled Course Course Course Narrative: Patient had chest x-ray and COVID swab. Reevaluation(s) Reevaluation #1: Plan was to do medical evaluation due to hemoptysis with cough may be labs and abdominal ultrasound due to patient states lower abdominal pain and [address] weeks [address] Patel of OBGYN any states patient is to be transferred immediately and does not recommend for any further evaluation such as labs or imaging. Patient follows up at [facility] recommends calling patient for transfer medical evaluation. [facility] transfer line was called and they preferred to wait for patient's COVID results. heart rate 128. Patient is not in any distress. Ninety-eight O2 saturation. X-ray came back which showed right upper lobe infiltrate. Patient is not tachycardic or hypoxic. Patient has normal temperature. Time: 10:37 Reevaluation #2: Patient's COVID swab came back positive. [facility] transfer line informed and they will call me back. Time: 11:00 Reevaluation #3: Spoke with [facility] OBGYN resident on-call and she states she is unsure if patient could be transferred to food service steward floor due to patient's medical workup is not complete. It was discussed with her possibility of further imaging and I discussed with her PE may be risk factor due to patient being and positive COVID once again our OBGYN on-call want her to be immediately transferred without any further medical workup. She states patient may have to go to medical floor at [facility] but she will have to contact them 1st. [facility] transfer would call us back. Presently labs ordered for potential CT a invasive does not come back immediately. Time: 12:18 Additional Reevaluation(s): [facility] hospitalist Dr. Rascon, accepted the case for transfer to medicine floor [facility]. 1:00pm Dr. Foreman of radiology called and recommended I order nuclear medical scan instead of CT scan of the chest due to contrast crossing the placenta.2:00pm. Nuclear V/Q scan came back negative for PE. 3:39pm MDM - URI/Sore Throat MDM Narrative Medical decision making narrative: COVID with pneumonia Lab Data Result diagrams: 01/07/21 12:32 01/07/21 12:32 Labs: Lab Results 01/07/21 01/07/21 01/07/21 Range/Units 09:42 12:31 12:32 WBC 6.9 (4.8-10.8) X10*3/uL RBC 3.67 L D (4.20-5.50) X10*6/uL Hgb 9.9 L D (12.0-16.0) g/dl Hct 30.8 L D (37-47) % MCV 83.9 (80-98) fL MCH 27.0 (27.0-33.0) pg MCHC 32.1 (31.0-35.0) g/dl RDW 14.2 (11.0-16.0) % Plt Count 229 D (160-400) X10*3/uL MPV 10.2 (9.4-12.3) fL Immature Gran % (Auto) 1.8 H (0.0-0.4) % Neut % (Auto) 67.1 (45-73) % Lymph % (Auto) 19.4 L (20-40) % [place] % (Auto) 7.7 (2-11) % Eos % (Auto) 3.9 (0-4) % Baso % (Auto) 0.1 (0-2) % Lymph # (Auto) 1.3 (1.2-4.9) X10*3/uL [place] # (Auto) 0.5 (0.1-1.2) X10*3/uL Eos # (Auto) 0.3 (0.0-0.4) X10*3/uL Baso # (Auto) 0.0 (0.0-0.2) X10*3/uL Abs Immat Gran (auto) 0.12 H (0.00-0.03) X10*3/uL Absolute Neuts (auto) 4.6 (2.0-8.3) X10*3/uL Absolute Nucleated RBC 0.000 (0.0-0.012) X10*3/uL Nucleated RBC % (auto) 0.0 (0.0-0.2) /100WBC PT (9.9-13.0) SEC INR (0.9-1.1) APTT (24.1-38.0) SEC D-Dimer NG/ML Sodium (135-145) mmol/L Potassium (3.3-5.1) mmol/L Chloride (96-108) mmol/L Carbon Dioxide (22-29) mmol/L Anion Gap (12-20) BUN (9-16) mg/dL Creatinine (0.5-1.4) mg/dL Estim Creat Clear Calc Estimated GFR Random Glucose (60-115) mg/dL Calcium (8.4-10.2) mg/dL Total Bilirubin (0.0-1.0) mg/dL Direct Bilirubin (0.0-0.5) mg/dL AST (5-31) U/L ALT (0-31) U/L Alkaline Phosphatase (39-117) U/L Troponin I High Sens < 3.5 (<3.5-17.0) ng/L B-Natriuretic Peptide < 10 (<100) pg/mL Total Protein (6.5-8.0) g/dL Albumin (3.5-5.0) g/dL Beta HCG, Quant mIU/mL Coronavirus (PCR) POSITIVE A (Negative) Influenza Type A (PCR) NEGATIVE (Negative) Influenza Type B (PCR) NEGATIVE (Negative) RSV RNA Qual (PCR) NEGATIVE (Negative) 01/07/21 01/07/21 Range/Units 12:32 12:32 WBC (4.8-10.8) X10*3/uL RBC (4.20-5.50) X10*6/uL Hgb (12.0-16.0) g/dl Hct (37-47) % MCV (80-98) fL MCH (27.0-33.0) pg MCHC (31.0-35.0) g/dl RDW (11.0-16.0) % Plt Count (160-400) X10*3/uL MPV (9.4-12.3) fL Immature Gran % (Auto) (0.0-0.4) % Neut % (Auto) (45-73) % Lymph % (Auto) (20-40) % [place] % (Auto) (2-11) % Eos % (Auto) (0-4) % Baso % (Auto) (0-2) % Lymph # (Auto) (1.2-4.9) X10*3/uL [place] # (Auto) (0.1-1.2) X10*3/uL Eos # (Auto) (0.0-0.4) X10*3/uL Baso # (Auto) (0.0-0.2) X10*3/uL Abs Immat Gran (auto) (0.00-0.03) X10*3/uL Absolute Neuts (auto) (2.0-8.3) X10*3/uL Absolute Nucleated RBC (0.0-0.012) X10*3/uL Nucleated RBC % (auto) (0.0-0.2) /100WBC PT 11.3 (9.9-13.0) SEC INR 1.0 (0.9-1.1) APTT 31.5 (24.1-38.0) SEC D-Dimer < 200 NG/ML Sodium 138 (135-145) mmol/L Potassium 3.8 (3.3-5.1) mmol/L Chloride 109 H (96-108) mmol/L Carbon Dioxide 21 L (22-29) mmol/L Anion Gap 12 (12-20) BUN 8 L (9-16) mg/dL Creatinine 0.61 (0.5-1.4) mg/dL Estim Creat Clear Calc 145.9 Estimated GFR > 60 Random Glucose 105 (60-115) mg/dL Calcium 8.1 L D (8.4-10.2) mg/dL Total Bilirubin 0.5 (0.0-1.0) mg/dL Direct Bilirubin 0.2 (0.0-0.5) mg/dL AST 14 (5-31) U/L ALT 15 (0-31) U/L Alkaline Phosphatase 129 H D (39-117) U/L Troponin I High Sens (<3.5-17.0) ng/L B-Natriuretic Peptide (<100) pg/mL Total Protein 5.7 L (6.5-8.0) g/dL Albumin 3.0 L D (3.5-5.0) g/dL Beta HCG, Quant 41287 mIU/mL Coronavirus (PCR) (Negative) Influenza Type A (PCR) (Negative) Influenza Type B (PCR) (Negative) RSV RNA Qual (PCR) (Negative) ECG Data Interpretation: Normal sinus rhythm. Ventricular rate 80. Pr interval 178. QRS 80. QTC 454. Negative STEMI Discharge Plan Discharge Clinical Impression: COVID, Pneumonia Patient Disposition: Xfer Acute Care Hospital Transfer Details: [facility] Prescriptions: No Action amoxicillin 500 mg capsule 500 mg PO Q12H 7 Days Qty: 14 RF: 0 prednisone 20 mg tablet 40 mg PO DAILY 4 Days Qty: 8 RF: 0 albuterol sulfate 90 mcg/actuation HFA aerosol inhaler 2 puff inhalation QID PRN (Reason: shortness of breath or wheezing) Qty: 6.7 RF: 0 Print Language: Tamazight
[2021-01-07 10:19] VITALS: BP 114/63; PULSE 97; RESP 18; O2SAT 99
--- NOTE | 2021-01-07 10:19 | PC.NURSE ---
2L NC applied. remains unlabored. reports hemoptysis aprox x10 daily. little specks of bright red blood no coughing during time in ed thus far.
--- NOTE | 2021-01-07 10:21 | PC.NURSE ---
HR is 128
[2021-01-07 10:46] LABS: Influenza A PCR NEGATIVE (Negative); Influenza B PCR NEGATIVE (Negative); Resp Syncy Virus RNA Qual PCR NEGATIVE (Negative); SARS COV2 PCR INHOUSE POSITIVE (Negative)
[2021-01-07 12:00] VITALS: BP 113/60; PULSE 81; RESP 18; TEMP 36.7; O2SAT 100
[2021-01-07 12:37] LABS: MANUAL DIFF FLAG NO
[2021-01-07 12:42] LABS: Basophils Percent Auto 0.1 % (0-2); Eosinophils Absolute Auto 0.3 X10*3/uL (0.0-0.4); Eosinophils Percent Auto 3.9 % (0-4); Hematocrit 30.8 % (37-47); Hemoglobin 9.9 g/dl (12.0-16.0); Imm Gran Abs Auto 0.12 X10*3/uL (0.00-0.03); Imm Gran Pct Auto 1.8 % (0.0-0.4); Lymphocytes Absolute Auto 1.3 X10*3/uL (1.2-4.9); Lymphocytes Percent Auto 19.4 % (20-40); Mean Corpuscular HGB Conc 32.1 g/dl (31.0-35.0); Mean Corpuscular Volume 83.9 fL (80-98); Mean Platelet Volume 10.2 fL (9.4-12.3); Monocytes Absolute Auto 0.5 X10*3/uL (0.1-1.2); Monocytes Percent Auto 7.7 % (2-11); Neutrophils Absolute Auto 4.6 X10*3/uL (2.0-8.3); Neutrophils Percent Auto 67.1 % (45-73); Platelet Count 229 X10*3/uL (160-400); Red Blood Count 3.67 X10*6/uL (4.20-5.50); Red Cell Distribution Width 14.2 % (11.0-16.0); White Blood Count 6.9 X10*3/uL (4.8-10.8)
[2021-01-07 12:54] LABS: Prothrombin Time 11.3 SEC (9.9-13.0)
[2021-01-07 12:55] LABS: Alanine Aminotransferase 15 U/L (0-31); Alkaline Phosphatase 129 U/L (39-117); Anion Gap 12 (12-20); Aspartate Amino Transferase 14 U/L (5-31); Bilirubin Direct 0.2 mg/dL (0.0-0.5); Bilirubin Total 0.5 mg/dL (0.0-1.0); Blood Urea Nitrogen 8 mg/dL (9-16); Calcium 8.1 mg/dL (8.4-10.2); Carbon Dioxide 21 mmol/L (22-29); Chloride 109 mmol/L (96-108); Creatinine Clr Calc Pharmacy 145.9; Estimated Glomerular Filt Rate > 60; Glucose Random 105 mg/dL (60-115); Potassium 3.8 mmol/L (3.3-5.1); Sodium 138 mmol/L (135-145); Total Protein 5.7 g/dL (6.5-8.0)
[2021-01-07 12:57] LABS: Partial Thromboplastin Time 31.5 SEC (24.1-38.0)
[2021-01-07 12:59] LABS: B Type Natriuretic Peptide < 10 pg/mL (<100); Troponin-I High Sensitivity < 3.5 ng/L (<3.5-17.0)
[2021-01-07 13:01] LABS: HCG Quantitative 10179 mIU/mL
[2021-01-07 13:08] LABS: D Dimer < 200 NG/ML
[2021-01-07] MEDS: 0.9 % Sodium Chloride 1,000 ML 999 ML IV (13:16)
--- NOTE | 2021-01-07 15:30 | ECG_ITS ---
Test Reason : DYSNEA Blood Pressure : / mmHG Vent. Rate : 080 BPM Atrial Rate : 080 BPM P-R Int : 178 ms QRS Dur : 080 ms QT Int : 394 ms P-R-T Axes : 017 041 008 degrees QTc Int : 454 ms Normal sinus rhythm Normal ECG When compared with ECG of 20-MAR-2015 21:50, No significant change was found Referred By: Neel Hernandez Electronically Signed By:POPEYE COOK
[2021-01-07 15:48] VITALS: BP 103/61; PULSE 84; RESP 18; TEMP 36.6; O2SAT 99
--- NOTE | 2021-01-07 15:55 | PC.NURSE ---
bedside report with EMS
--- NOTE | 2021-01-07 15:56 | PC.NURSE ---
Rn to Rn with brittney at [facility]
== END 2021-01-07 16:06 | disposition short-term general hospital (02) ==
PROVIDERS: Physician Assistant; Emergency Provider Emergency Medicine; PCP Family Medicine
DX: U07.1 COVID-19 (principal); J12.82 Pneumonia due to coronavirus disease 2019; J06.9 Acute upper respiratory infection, unspecified; R06.02 Shortness of breath; R05 Cough; Z79.899 Other long term (current) drug therapy
CPT/HCPCS: 0241U; 36415; 71045; 78580; 80053; 82248; 83880; 84484; 84702; 85025; 85379; 85610; 85730; 93005; 96360; 99285; A9540

== ENCOUNTER → 2022-01-04 11:41 | Outpatient (BNVA) | payer SELFPAY | PROVIDERS: PCP Family Medicine | DX: Z11.1 Encounter for screening for respiratory tuberculosis (principal) ==

== ENCOUNTER 2023-02-27 16:39 | Emergency (ER) | payer MEDICAID, SELFPAY ==
[2023-02-27 17:19] VITALS: BP 136/77; PULSE 73; RESP 16; TEMP 36.5; O2SAT 100; BMI 34.7
--- NOTE | 2023-02-27 17:23 | ECG_ITS ---
Test Reason : syncope Blood Pressure : / mmHG Vent. Rate : 073 BPM Atrial Rate : 073 BPM P-R Int : 182 ms QRS Dur : 090 ms QT Int : 378 ms P-R-T Axes : 034 049 025 degrees QTc Int : 416 ms Normal sinus rhythm with sinus arrhythmia Normal ECG When compared with ECG of 07-JAN-2021 15:45, No significant change was found Referred By: Yuniel Almendarez Electronically Signed By:VIANNEY MAY MD
--- NOTE | 2023-02-27 17:24 | ED.SYNCOPE ---
HPI - Syncope General Chief Complaint: Syncope Stated Complaint: Near syncope Time Seen by Provider: 02/27/23 18:10 Related Data Previous Rx's ?Medication ?Instructions ?Recorded albuterol sulfate 90 mcg/actuation 2 puff inhalation QID PRN 10/27/20 aerosol inhaler shortness of breath or wheezing #6.7 grams amoxicillin 500 mg capsule 500 mg PO Q12H 7 days #14 caps 10/27/20 prednisone 20 mg tablet 40 mg (2 x 20 mg) PO DAILY 4 days 10/27/20 #8 tabs ferrous sulfate 325 mg (65 mg 325 mg PO Q OTHER DAY #30 tabs 03/11/23 iron) tablet (iron) Allergies Allergy/AdvReac Type Severity Reaction Status Date / Time No Known Allergies Allergy Verified 03/11/23 16:49 [facility] Past Medical History Medical History Asthma Social History Social History Alcohol intake: never Patient Tobacco Use Status: Never used Tobacco Smoked in Last 30 Days: Yes Use of substances other than those prescribed or required for medical reasons: No Any prior treatment program specific to substance use: No Advance Directives: No Advance Directives Information Provided: No Patient : No Physical Exam Vital Signs: Vital Signs: Last Vital Signs Temp 97.7 F 02/27/23 17:19 Pulse 82 02/27/23 18:27 Resp 14 02/27/23 18:26 BP 128/67 02/27/23 18:27 Pulse Ox 100 02/27/23 18:26 O2 Del Method Room Air 02/27/23 18:26 BMI result Body Mass Index 34.7 Course Course Course Narrative: This is an RME: Additional HPI, ROS, PE not included below will be deferred to primary provider. 32 yo f presents s/p syncope at work this hasnt happened to her before she hit her head against a wall per coworker but got caught while falling and put into a chair felt warm and dizzy prior to sycnope. Plan- labs Medical Decision Making Lab Data 02/27/23 17:35 02/27/23 17:35 Labs: Lab Results 02/27/23 02/27/23 Range/Units 17:35 18:28 WBC 12.3 H (4.8-10.8) X10*3/uL RBC 4.62 (4.20-5.50) X10*6/uL Hgb 9.8 L (12.0-16.0) g/dl Hct 32.2 L (37.0-47.0) % MCV 69.7 L (80.0-98.0) fL MCH 21.2 L (27.0-33.0) pg MCHC 30.4 L (31.0-35.0) g/dl RDW 17.7 H (11.0-16.0) % Plt Count 435 H (160-400) X10*3/uL MPV 10.5 (9.4-12.3) fL Immature Gran % (Auto) 0.3 (0.0-0.4) % Neut % (Auto) 61.8 (45-73) % Lymph % (Auto) 25.9 (20-40) % Eddy % (Auto) 5.7 (2-11) % Eos % (Auto) 5.4 H (0-4) % Baso % (Auto) 0.9 (0-2) % Lymph # (Auto) 3.2 (1.2-4.9) X10*3/uL Eddy # (Auto) 0.7 (0.1-1.2) X10*3/uL Eos # (Auto) 0.7 H (0.0-0.4) X10*3/uL Baso # (Auto) 0.1 (0.0-0.2) X10*3/uL Abs Immat Gran (auto) 0.04 H (0.00-0.03) X10*3/uL Absolute Neuts (auto) 7.6 (2.0-8.3) x10*3/uL Absolute Nucleated RBC 0.000 (0.0-0.012) X10*3/uL Nucleated RBC % (auto) 0.0 (0.0-0.2) /100WBC PT 12.2 (11.1-13.3) SEC INR 1.0 (0.9-1.1) Sodium 140 (135-145) mmol/L Potassium 3.9 (3.3-5.1) mmol/L Chloride 107 (96-108) mmol/L Carbon Dioxide 25 (22-29) mmol/L Anion Gap 12 (12-20) BUN 20 H (9-16) mg/dL Creatinine 0.87 (0.5-1.4) mg/dL Estim Creat Clear Calc 94.5 Estimated GFR > 60 Random Glucose 88 (60-115) mg/dL Calcium 9.6 D (8.4-10.2) mg/dL Magnesium 2.0 (1.6-2.6) mg/dL Total Bilirubin 0.4 (0.0-1.0) mg/dL AST 17 (5-31) U/L ALT 7 (0-31) U/L Alkaline Phosphatase 60 (39-117) U/L Troponin I High Sens < 2.7 (<3.5-17.0) ng/L Total Protein 7.6 (6.5-8.0) g/dL Albumin 4.4 (3.5-5.0) g/dL Beta HCG, Quant < 2 mIU/mL Urine Color Yellow Urine Appearance Clear Urine pH 6.5 (5.0-9.0) Ur Specific Bradley >= 1.030 H (1.005-1.025) Urine Protein Negative (Neg-Trace) mg/dL Urine Glucose (UA) Negative (Negative) mg/dL Urine Ketones Negative (Negative) mg/dL Urine Blood Negative (Negative) Urine Nitrite Negative (Negative) Ur Leukocyte Esterase Small (1+) H (Negative) Urine RBC 0-2 (0-2) /HPF Urine WBC 11-20 H (0-5) /HPF Ur Squamous Epith Cells 6-10 (0-2) /HPF Urine Bacteria Trace (None Seen) Hyaline Casts 0-2 (0-2) /LPF Discharge Plan Discharge Clinical Impression: Vasovagal syncope Patient Disposition: Home, Self-Care Instructions: Syncope (DC) Prescriptions: No Action amoxicillin 500 mg capsule 500 mg PO Q12H 7 Days Qty: 14 0RF prednisone 20 mg tablet 40 mg PO DAILY 4 Days Qty: 8 0RF albuterol sulfate 90 mcg/actuation HFA aerosol inhaler 2 puff inhalation QID PRN (Reason: shortness of breath or wheezing) Qty: 6.7 0RF ferrous sulfate [iron] 325 mg (65 mg iron) tablet 325 mg PO Q OTHER DAY Qty: 30 0RF Referrals: Ave Sol MD [Primary Care Provider] - 03/01/23 Interventions: ED Discharge Assessment Last Done: 02/27/23 18:59 Discharge Date/Time: 02/27/23 19:00 Print Language: Pakistani
[2023-02-27 17:38] LABS: MANUAL DIFF FLAG NO
[2023-02-27 17:43] LABS: Basophils Absolute Auto 0.1 X10*3/uL (0.0-0.2); Basophils Percent Auto 0.9 % (0-2); Eosinophils Absolute Auto 0.7 X10*3/uL (0.0-0.4); Eosinophils Percent Auto 5.4 % (0-4); Hematocrit 32.2 % (37.0-47.0); Hemoglobin 9.8 g/dl (12.0-16.0); Imm Gran Abs Auto 0.04 X10*3/uL (0.00-0.03); Imm Gran Pct Auto 0.3 % (0.0-0.4); Lymphocytes Absolute Auto 3.2 X10*3/uL (1.2-4.9); Lymphocytes Percent Auto 25.9 % (20-40); Mean Corpuscular HGB Conc 30.4 g/dl (31.0-35.0); Mean Corpuscular Hemoglobin 21.2 pg (27.0-33.0); Mean Corpuscular Volume 69.7 fL (80.0-98.0); Mean Platelet Volume 10.5 fL (9.4-12.3); Monocytes Absolute Auto 0.7 X10*3/uL (0.1-1.2); Monocytes Percent Auto 5.7 % (2-11); Neutrophils Absolute Auto 7.6 x10*3/uL (2.0-8.3); Neutrophils Percent Auto 61.8 % (45-73); Platelet Count 435 X10*3/uL (160-400); Red Blood Count 4.62 X10*6/uL (4.20-5.50); Red Cell Distribution Width 17.7 % (11.0-16.0); White Blood Count 12.3 X10*3/uL (4.8-10.8)
[2023-02-27 17:53] LABS: Prothrombin Time 12.2 SEC (11.1-13.3)
[2023-02-27 18:03] LABS: Alanine Aminotransferase 7 U/L (0-31); Albumin Level 4.4 g/dL (3.5-5.0); Alkaline Phosphatase 60 U/L (39-117); Anion Gap 12 (12-20); Aspartate Amino Transferase 17 U/L (5-31); Bilirubin Total 0.4 mg/dL (0.0-1.0); Blood Urea Nitrogen 20 mg/dL (9-16); Calcium 9.6 mg/dL (8.4-10.2); Carbon Dioxide 25 mmol/L (22-29); Chloride 107 mmol/L (96-108); Creatinine Clr Calc Pharmacy 94.5; Estimated Glomerular Filt Rate > 60; Glucose Random 88 mg/dL (60-115); HCG Quantitative < 2 mIU/mL; Potassium 3.9 mmol/L (3.3-5.1); Sodium 140 mmol/L (135-145); Total Protein 7.6 g/dL (6.5-8.0); Troponin-I High Sensitivity < 2.7 ng/L (<3.5-17.0)
--- NOTE | 2023-02-27 18:17 | ED_ITS ---
HPI - Dizziness General Chief Complaint: Syncope Stated Complaint: Near syncope Time Seen by Provider: 02/27/23 18:10 History of Present Illness HPI Narrative: Patient is a 32-year-old female presents today with having in syncopal episode. Patient was standing at work. [place] lightheaded. Then pass out. Denies any trauma. No chest pain or diaphoresis. Not having excessive bleeding. Not having her menstruation not having any bloody stool no history of similar episode had lunch today. Patient from home. No recreational drugs. Was working at the time. Related Data Previous Rx's Medication Instructions Recorded albuterol sulfate 90 mcg/actuation 2 puff inhalation QID PRN 10/27/20 aerosol inhaler shortness of breath or wheezing #6.7 grams amoxicillin 500 mg capsule 500 mg PO Q12H 7 days #14 caps 10/27/20 prednisone 20 mg tablet 40 mg (2 x 20 mg) PO DAILY 4 days 10/27/20 #8 tabs Allergies Allergy/AdvReac Type Severity Reaction Status Date / Time No Known Allergies Allergy Verified 01/31/23 15:18 Review of Systems 2 Review of Systems: No fever no chills no cough no congestion no chest pain or diaphoresis no sudden in the family Yes all other systems are reviewed and are negative [facility] Past Medical History Attestation statement: The following information was validated with the patient. Medical History Asthma Social History Social History Alcohol intake: never Patient Tobacco Use Status: Never used Tobacco Advance Directives: No Advance Directives Information Provided: No Physical Exam 2 Vital Signs: Vital Signs: Last Vital Signs Temp 97.7 F 02/27/23 17:19 Pulse 82 02/27/23 18:27 Resp 14 02/27/23 18:26 BP 128/67 02/27/23 18:27 Pulse Ox 100 02/27/23 18:26 O2 Del Method Room Air 02/27/23 18:26 BMI result Body Mass Index 34.7 Appearance: Alert. Oriented X3. No acute distress. Eyes: Pupils equal, round and reactive to light. ENT: Pharynx normal. Neck: Normal inspection. Neck supple. No lymph nodes noted. No crepitus CVS: Normal heart rate and rhythm. Pulses normal. Normal S1 and S2 Respiratory: No respiratory distress. Breath sounds normal. No Wheezing. No rales Abdomen: Soft and nontender. No rigidity. No distention. good BS x4 Skin: Skin warm and dry. Normal skin color. Normal skin turgor. Extremities: No lower extremity edema. Neurovascular intact to all extremities. No Lacerations. No Rash Neuro: Oriented X 3. No motor deficit. No sensory deficit. Moving all extermities. No slurred speech Medical Decision Making Medical Decision Making [facility] Narrative: patient well appearing no acute distress. Neurologically intact. History consistent with vasovagal syncope. Patient's EKG by my interpretation showed a sinus rhythm heart rate is 80 AR QRS QTC within normal limits is no acute ST segment elevation noted. Her test was negative there is no related issues. Her hemoglobin is approximately 10 this is baseline. Patient's history is consistent with vasovagal episode. She is only 32 years old. Will have patient take a lot of fluids follow up on an outpatient basis her urine is still pending. Patient's urine showed no signs of infection. Will discharge patient home close follow-up on an outpatient basis encourage fluid in stable condition Differential Diagnosis Differential Diagnoses: The differential diagnosis associated with the presentation includes Arrhythmia, vasovagal syncope, dehydration, anemia, UTI Admission/Observation Consideration of admission/observation: Escalation of care including admission/observation considered considered admission but given patient's well appearance his side discharge patie Lab Data [facility] Lab Attestation statement: I reviewed the patient's lab results. 02/27/23 17:35 02/27/23 17:35 Labs: Lab Results 02/27/23 02/27/23 Range/Units 17:35 18:28 WBC 12.3 H (4.8-10.8) X10*3/uL RBC 4.62 (4.20-5.50) X10*6/uL Hgb 9.8 L (12.0-16.0) g/dl Hct 32.2 L (37.0-47.0) % MCV 69.7 L (80.0-98.0) fL MCH 21.2 L (27.0-33.0) pg MCHC 30.4 L (31.0-35.0) g/dl RDW 17.7 H (11.0-16.0) % Plt Count 435 H (160-400) X10*3/uL MPV 10.5 (9.4-12.3) fL Immature Gran % (Auto) 0.3 (0.0-0.4) % Neut % (Auto) 61.8 (45-73) % Lymph % (Auto) 25.9 (20-40) % [place] % (Auto) 5.7 (2-11) % Eos % (Auto) 5.4 H (0-4) % Baso % (Auto) 0.9 (0-2) % Lymph # (Auto) 3.2 (1.2-4.9) X10*3/uL [place] # (Auto) 0.7 (0.1-1.2) X10*3/uL Eos # (Auto) 0.7 H (0.0-0.4) X10*3/uL Baso # (Auto) 0.1 (0.0-0.2) X10*3/uL Abs Immat Gran (auto) 0.04 H (0.00-0.03) X10*3/uL Absolute Neuts (auto) 7.6 (2.0-8.3) x10*3/uL Absolute Nucleated RBC 0.000 (0.0-0.012) X10*3/uL Nucleated RBC % (auto) 0.0 (0.0-0.2) /100WBC PT 12.2 (11.1-13.3) SEC INR 1.0 (0.9-1.1) Sodium 140 (135-145) mmol/L Potassium 3.9 (3.3-5.1) mmol/L Chloride 107 (96-108) mmol/L Carbon Dioxide 25 (22-29) mmol/L Anion Gap 12 (12-20) BUN 20 H (9-16) mg/dL Creatinine 0.87 (0.5-1.4) mg/dL Estim Creat Clear Calc 94.5 Estimated GFR > 60 Random Glucose 88 (60-115) mg/dL Calcium 9.6 D (8.4-10.2) mg/dL Magnesium 2.0 (1.6-2.6) mg/dL Total Bilirubin 0.4 (0.0-1.0) mg/dL AST 17 (5-31) U/L ALT 7 (0-31) U/L Alkaline Phosphatase 60 (39-117) U/L Troponin I High Sens < 2.7 (<3.5-17.0) ng/L Total Protein 7.6 (6.5-8.0) g/dL Albumin 4.4 (3.5-5.0) g/dL Beta HCG, Quant < 2 mIU/mL Urine Color Yellow Urine Appearance Clear Urine pH 6.5 (5.0-9.0) Ur Specific [place] >= 1.030 H (1.005-1.025) Urine Protein Negative (Neg-Trace) mg/dL Urine Glucose (UA) Negative (Negative) mg/dL Urine Ketones Negative (Negative) mg/dL Urine Blood Negative (Negative) Urine Nitrite Negative (Negative) Ur Leukocyte Esterase Small (1+) H (Negative) Urine RBC 0-2 (0-2) /HPF Urine WBC 11-20 H (0-5) /HPF Ur Squamous Epith Cells 6-10 (0-2) /HPF Urine Bacteria Trace (None Seen) Hyaline Casts 0-2 (0-2) /LPF Independent Interpretation I performed an independent interpretation of an: EKG Interpretation: my interpretation of patient's EKG showed a sinus rhythm heart rate is 80 AR QRS QTC within normal limits is no acute ST segment elevation noted. Prescription Management I considered prescription management with: Pain Medication none needed Discharge Plan Discharge Clinical Impression: Vasovagal syncope Patient Disposition: Home, Self-Care Instructions: Syncope (DC) Prescriptions: No Action amoxicillin 500 mg capsule 500 mg PO Q12H 7 Days Qty: 14 0RF prednisone 20 mg tablet 40 mg PO DAILY 4 Days Qty: 8 0RF albuterol sulfate 90 mcg/actuation HFA aerosol inhaler 2 puff inhalation QID PRN (Reason: shortness of breath or wheezing) Qty: 6.7 0RF Referrals: Ave Sol MD [Primary Care Provider] - 03/01/23
[2023-02-27 18:26] VITALS: BP 124/70; PULSE 64; RESP 14; O2SAT 100
[2023-02-27 18:27] VITALS: BP 119/77; BP 128/67; PULSE 69; PULSE 82
[2023-02-27 18:34] LABS: Appearance Urine Clear; Color Urine Yellow; Glucose Urine UA Negative (Negative); Leukocyte Esterase Urine Small (1+) (Negative); Nitrite Urine Negative (Negative); PH 6.5 (5.0-9.0); Specific Gravity - Urine >= 1.030 (1.005-1.025); UMIC TRIGGER UACC YES; Urine Blood Negative (Negative); Urine Ketones Negative (Negative); Urine Protein Negative (Neg-Trace)
[2023-02-27 18:37] LABS: Bacteria Urine Trace (None Seen); Hyaline Casts Urine 0-2 /LPF (0-2); RBC Urine 0-2 /HPF (0-2); UACC Culture Trigger YES
== END 2023-02-27 19:00 | disposition home or self-care (01) ==
PROVIDERS: Physician Assistant; Emergency Provider Emergency Medicine Emergency Medical Services; PCP Family Medicine
DX: R55 Syncope and collapse (principal)
CPT/HCPCS: 36415; 80053; 81001; 83735; 84484; 84702; 85025; 85610; 87086; 93005; 99284

== ENCOUNTER 2023-03-11 15:51 | Emergency (ER) | payer MEDICAID, SELFPAY ==
[2023-03-11 16:49] VITALS: BP 148/80; PULSE 79; RESP 16; TEMP 36.7; O2SAT 99; BMI 34.9
--- NOTE | 2023-03-11 16:49 | ED_ITS ---
HPI - General Adult General Chief complaint: Dizziness Stated complaint: almost passed out today Time Seen by Provider: 03/11/23 19:48 Source: patient, RN notes reviewed and old records reviewed Mode of arrival: ambulatory Limitations: no limitations History of Present Illness HPI narrative: 32-year-old female presents for evaluation of near syncope. Patient reports a history of anemia due to heavy menstrual flow Her last menstrual cycle ended 2 days ago Patient reports that she has been intermittently dizzy over the last 2 weeks after being seen here for syncopal episode She denies any chest pain. She states that she did not have a syncopal episode today but she felt dizzy and lightheaded at work require her to sit down Patient states that she is not on control and is not taking iron supplementation because ?it does not set well with my stomach. ? She had previously been getting iron infusions but ?I have not gone in a while. ? Related Data Previous Rx's Medication Instructions Recorded albuterol sulfate 90 mcg/actuation 2 puff inhalation QID PRN 10/27/20 aerosol inhaler shortness of breath or wheezing #6.7 grams amoxicillin 500 mg capsule 500 mg PO Q12H 7 days #14 caps 10/27/20 prednisone 20 mg tablet 40 mg (2 x 20 mg) PO DAILY 4 days 10/27/20 #8 tabs ferrous sulfate 325 mg (65 mg 325 mg PO Q OTHER DAY #30 tabs 03/11/23 iron) tablet (iron) Allergies Allergy/AdvReac Type Severity Reaction Status Date / Time No Known Allergies Allergy Verified 03/11/23 16:49 Review of Systems 2 Constitutional: Constitutional: Denies chills and Denies fever(s) ENT: Denies vertigo, Reports dizziness and Denies sore throat Cardiovascular: Cardiovascular: Denies chest pain and Denies dyspnea Respiratory: Respiratory: Denies cough and Denies dyspnea Gastrointestinal: Gastrointestinal: Denies abdominal pain, Denies nausea and Denies vomiting Musculoskeletal: Musculoskeletal: Denies back pain Integumentary/Breasts: Skin/Breast: Denies rash Neurologic: Denies vertigo and Reports dizziness PMFSH Past Medical History Medical History Asthma Social History Alcohol intake: never Patient Tobacco Use Status: Never used Tobacco Smoked in Last 30 Days: Yes Use of substances other than those prescribed or required for medical reasons: No Any prior treatment program specific to substance use: No Advance Directives: No Advance Directives Information Provided: No Patient : No Physical Exam ED Vital Signs: Vital Signs - 24 hr 03/11/23 16:49 03/11/23 19:57 03/11/23 20:16 Temperature 98.1 F 98.2 F Pulse Rate 79 66 64 Respiratory Rate 16 16 Blood Pressure 148/80 H 135/76 126/65 Pulse Oximetry 99 100 Oxygen Delivery Method Room Air Room Air 03/11/23 20:17 03/11/23 20:18 Temperature Pulse Rate 72 73 Respiratory Rate Blood Pressure 134/79 126/73 Pulse Oximetry Oxygen Delivery Method BMI result Body Mass Index 34.9 Const General: healthy appearing, comfortable, no acute distress, alert and awake Nutritional Appearance: well nourished Orientation/consciousness: patient oriented x3 HENMT Head: Yes normocephalic and Yes atraumatic Throat: Yes posterior oropharynx normal Eyes Eyelids: Yes eyelids normal Conjunctivae: conjunctivae normal Sclerae: sclerae normal Corneas: corneas normal Pupils: Equal, round and reactive pupils present EOM: EOMs intact bilaterally Neck Neck: Yes full ROM Resp Effort & Inspection: normal respiratory effort, able to speak in complete sentences, no audible wheezes and not labored Auscultation: clear to auscultation bilaterally Cardio Rate: regular rate Rhythm: regular rhythm GI Inspection: No distended Palpation (GI): Soft to palpation, not firm, nontender, no guarding and not rigid Skin General skin exam: no rashes or lesions noted and elasticity normal Neuro General: patient oriented x3 Cranial nerves: Yes Equal, round and reactive pupils present and Yes Bilaterally intact EOM present Cognition (Neuro): normal cognition Extrem Other: Moving all extremities well without any obvious deformities Course Course Course Narrative: RME: 32yo F w/PMHx asthma c/o lightheaded/dizziness x2 weeks intermittently, worsening today. Denies syncope/LOC today. denies taking AC. Admits to CP earlier today. Denies SOB, travel, recent illness. Has been seen in the ED recently for similar sx Ambulating w/steady gait EKG, Labs, UA, Orthostatics ordered Full HPI, ROS and PE to be performed by primary ED provider. Medical Decision Making Medical Decision Making [facility] Narrative: 32-year-old female presents for evaluation of dizziness that is intermittent but worse with working. 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 The patient's exam is nonfocal. Her workup significant for iron deficiency anemia and she is not compliant with her iron supplementation. Which is possibly the cause of her symptoms. Will treat her with iron supplementation she will follow-up with OBGYN. Differential Diagnosis Differential Diagnoses: The differential diagnosis associated with the presentation includes Symptomatic anemia Orthostasis Dehydration Vertigo Admission/Observation Consideration of admission/observation: Escalation of care including admission/observation considered Symptomatic anemia however, the patient is not actively bleeding, it is not requiring transfusion. Lab Data [facility] Lab Attestation statement: I reviewed the patient's lab results. Mild leukocytosis with no source of infection identified. The patient has a microcytic anemia. No significant electrolyte abnormalities 03/11/23 17:57 03/11/23 17:57 Labs: Lab Results 03/11/23 03/11/23 Range/Units 17:57 18:02 WBC 12.6 H (4.8-10.8) X10*3/uL RBC 4.30 (4.20-5.50) X10*6/uL Hgb 8.9 L (12.0-16.0) g/dl Hct 30.3 L (37.0-47.0) % MCV 70.5 L (80.0-98.0) fL MCH 20.7 L (27.0-33.0) pg MCHC 29.4 L (31.0-35.0) g/dl RDW 18.2 H (11.0-16.0) % Plt Count 429 H (160-400) X10*3/uL MPV 10.1 (9.4-12.3) fL Immature Gran % (Auto) 0.4 (0.0-0.4) % Neut % (Auto) 63.3 (45-73) % Lymph % (Auto) 25.2 (20-40) % [place] % (Auto) 5.1 (2-11) % Eos % (Auto) 5.2 H (0-4) % Baso % (Auto) 0.8 (0-2) % Lymph # (Auto) 3.2 (1.2-4.9) X10*3/uL [place] # (Auto) 0.6 (0.1-1.2) X10*3/uL Eos # (Auto) 0.7 H (0.0-0.4) X10*3/uL Baso # (Auto) 0.1 (0.0-0.2) X10*3/uL Abs Immat Gran (auto) 0.05 H (0.00-0.03) X10*3/uL Absolute Neuts (auto) 8.0 (2.0-8.3) x10*3/uL Absolute Nucleated RBC 0.000 (0.0-0.012) X10*3/uL Nucleated RBC % (auto) 0.0 (0.0-0.2) /100WBC Sodium 138 (135-145) mmol/L Potassium 4.3 (3.3-5.1) mmol/L Chloride 108 (96-108) mmol/L Carbon Dioxide 24 (22-29) mmol/L Anion Gap 10 L (12-20) BUN 19 H (9-16) mg/dL Creatinine 0.88 (0.5-1.4) mg/dL Estim Creat Clear Calc 93.8 Estimated GFR > 60 Random Glucose 94 (60-115) mg/dL Calcium 9.1 (8.4-10.2) mg/dL Magnesium 2.2 (1.6-2.6) mg/dL Total Bilirubin 0.3 (0.0-1.0) mg/dL Direct Bilirubin 0.1 (0.0-0.5) mg/dL AST 13 (5-31) U/L ALT 9 (0-31) U/L Alkaline Phosphatase 57 (39-117) U/L Troponin I High Sens < 2.7 (<3.5-17.0) ng/L Total Protein 7.1 (6.5-8.0) g/dL Albumin 4.1 (3.5-5.0) g/dL Urine Color Yellow Urine Appearance Cloudy Urine pH 7.5 (5.0-9.0) Ur Specific [place] >= 1.030 H (1.005-1.025) Urine Protein Negative (Neg-Trace) mg/dL Urine Glucose (UA) Negative (Negative) mg/dL Urine Ketones Negative (Negative) mg/dL Urine Blood Large (3+) H (Negative) Urine Nitrite Negative (Negative) Ur Leukocyte Esterase Negative (Negative) Urine RBC 11-20 H (0-2) /HPF Urine WBC 6-10 H (0-5) /HPF Ur Squamous Epith Cells 3-5 (0-2) /HPF Urine Bacteria None Seen (None Seen) Hyaline Casts 0-2 (0-2) /LPF Urine Test NEGATIVE (NEGATIVE) COVID-19 (LINDY) Negative (Negative) COVID-19 Clin Com See Note Influenza Type A (MARC) Negative (Negative) Influenza Type B (MARC) Negative (Negative) Influenza A & B Note See Note Independent Interpretation I performed an independent interpretation of an: EKG (Normal sinus rhythm with a rate of 73 beats per minute. No ischemic changes) Discharge Plan Discharge Clinical Impression: Signs and symptoms of anemia Patient Disposition: Home, Self-Care Instructions: Anemia (ED) Additional Instructions: Your workup was largely unremarkable with the exception of anemia. This is likely due to heavy menstrual flow. I recommend you take iron supplementation I also recommend that you follow-up with OBGYN for the heavy menstrual flow and Cardiology for near syncope/syncope Return for new or worsening symptoms Prescriptions: New ferrous sulfate [iron] 325 mg (65 mg iron) tablet 325 mg PO Q OTHER DAY Qty: 30 0RF No Action amoxicillin 500 mg capsule 500 mg PO Q12H 7 Days Qty: 14 0RF prednisone 20 mg tablet 40 mg PO DAILY 4 Days Qty: 8 0RF albuterol sulfate 90 mcg/actuation HFA aerosol inhaler 2 puff inhalation QID PRN (Reason: shortness of breath or wheezing) Qty: 6.7 0RF
--- NOTE | 2023-03-11 16:50 | ECG_ITS ---
Test Reason : DIZZINESS Blood Pressure : / mmHG Vent. Rate : 073 BPM Atrial Rate : 073 BPM P-R Int : 190 ms QRS Dur : 088 ms QT Int : 382 ms P-R-T Axes : 034 048 034 degrees QTc Int : 420 ms Normal sinus rhythm Normal ECG When compared with ECG of 27-FEB-2023 17:25, No significant change was found Referred By: Sachi Morgan Electronically Signed By:VIANNEY MAY MD
[2023-03-11 18:02] LABS: MANUAL DIFF FLAG NO
[2023-03-11 18:03] LABS: Basophils Absolute Auto 0.1 X10*3/uL (0.0-0.2); Basophils Percent Auto 0.8 % (0-2); Eosinophils Absolute Auto 0.7 X10*3/uL (0.0-0.4); Eosinophils Percent Auto 5.2 % (0-4); Hematocrit 30.3 % (37.0-47.0); Hemoglobin 8.9 g/dl (12.0-16.0); Imm Gran Abs Auto 0.05 X10*3/uL (0.00-0.03); Imm Gran Pct Auto 0.4 % (0.0-0.4); Lymphocytes Absolute Auto 3.2 X10*3/uL (1.2-4.9); Lymphocytes Percent Auto 25.2 % (20-40); Mean Corpuscular HGB Conc 29.4 g/dl (31.0-35.0); Mean Corpuscular Hemoglobin 20.7 pg (27.0-33.0); Mean Corpuscular Volume 70.5 fL (80.0-98.0); Mean Platelet Volume 10.1 fL (9.4-12.3); Monocytes Absolute Auto 0.6 X10*3/uL (0.1-1.2); Monocytes Percent Auto 5.1 % (2-11); Neutrophils Percent Auto 63.3 % (45-73); Platelet Count 429 X10*3/uL (160-400); Red Cell Distribution Width 18.2 % (11.0-16.0); White Blood Count 12.6 X10*3/uL (4.8-10.8)
[2023-03-11 18:16] LABS: COVID-19 Test Negative (Negative); IDNOW Serial# BCCEAD1C
[2023-03-11 18:18] LABS: IDNOW Serial# 9DB6401D; Influenza A Negative (Negative); Influenza B2 Negative (Negative)
[2023-03-11 18:20] LABS: Alanine Aminotransferase 9 U/L (0-31); Albumin Level 4.1 g/dL (3.5-5.0); Alkaline Phosphatase 57 U/L (39-117); Anion Gap 10 (12-20); Aspartate Amino Transferase 13 U/L (5-31); Bilirubin Direct 0.1 mg/dL (0.0-0.5); Bilirubin Total 0.3 mg/dL (0.0-1.0); Blood Urea Nitrogen 19 mg/dL (9-16); Calcium 9.1 mg/dL (8.4-10.2); Carbon Dioxide 24 mmol/L (22-29); Chloride 108 mmol/L (96-108); Creatinine Clr Calc Pharmacy 93.8; Estimated Glomerular Filt Rate > 60; Glucose Random 94 mg/dL (60-115); Magnesium 2.2 mg/dL (1.6-2.6); Potassium 4.3 mmol/L (3.3-5.1); Sodium 138 mmol/L (135-145); Total Protein 7.1 g/dL (6.5-8.0)
[2023-03-11 18:21] LABS: Appearance Urine Cloudy; Color Urine Yellow; Glucose Urine UA Negative (Negative); Leukocyte Esterase Urine Negative (Negative); Nitrite Urine Negative (Negative); PH 7.5 (5.0-9.0); Specific Gravity - Urine >= 1.030 (1.005-1.025); UMIC TRIGGER UACC YES; Urine Blood Large (3+) (Negative); Urine Ketones Negative (Negative); Urine Protein Negative (Neg-Trace)
[2023-03-11 18:22] LABS: UPreg QC Valid YES; Urine Pregnancy NEGATIVE (NEGATIVE)
[2023-03-11 18:26] LABS: Bacteria Urine None Seen (None Seen); Hyaline Casts Urine 0-2 /LPF (0-2); UACC Culture Trigger YES
[2023-03-11 18:28] LABS: Troponin-I High Sensitivity < 2.7 ng/L (<3.5-17.0)
[2023-03-11 19:57] VITALS: BP 135/76; PULSE 66; RESP 16; TEMP 36.8; O2SAT 100
[2023-03-11 20:16] VITALS: BP 126/65; PULSE 64
[2023-03-11 20:17] VITALS: BP 134/79; PULSE 72
[2023-03-11 20:18] VITALS: BP 126/73; PULSE 73
== END 2023-03-11 20:55 | disposition home or self-care (01) ==
PROVIDERS: Physician Assistant; Emergency Provider Internal Medicine; PCP Family Medicine
DX: R42 Dizziness and giddiness (principal); D64.9 Anemia, unspecified; Z79.899 Other long term (current) drug therapy; Z11.52 Encounter for screening for COVID-19; Z20.822 Contact with and (suspected) exposure to COVID-19
CPT/HCPCS: 80048; 80076; 81001; 81025; 83735; 84484; 85025; 87086; 87502; 87635; 93005; 99283; 99285

== ENCOUNTER 2024-02-01 09:51 | Outpatient (REF) | payer MEDICAID, SELFPAY ==
[2024-02-01 12:03] LABS: MANUAL DIFF FLAG NO
[2024-02-01 12:18] LABS: Basophils Absolute Auto 0.1 X10*3/uL (0.0-0.2); Eosinophils Absolute Auto 0.4 X10*3/uL (0.0-0.4); Eosinophils Percent Auto 4.5 % (0-4); Hematocrit 30.6 % (37.0-47.0); Hemoglobin 8.9 g/dl (12.0-16.0); Imm Gran Abs Auto 0.03 X10*3/uL (0.00-0.03); Imm Gran Pct Auto 0.3 % (0.0-0.4); Lymphocytes Percent Auto 20.4 % (20-40); Mean Corpuscular HGB Conc 29.1 g/dl (31.0-35.0); Mean Corpuscular Volume 68.6 fL (80.0-98.0); Mean Platelet Volume 10.6 fL (9.4-12.3); Monocytes Absolute Auto 0.5 X10*3/uL (0.1-1.2); Monocytes Percent Auto 5.2 % (2-11); Neutrophils Absolute Auto 6.6 x10*3/uL (2.0-8.3); Neutrophils Percent Auto 68.6 % (45-73); Platelet Count 453 X10*3/uL (160-400); Red Blood Count 4.46 X10*6/uL (4.20-5.50); Red Cell Distribution Width 18.3 % (11.0-16.0); White Blood Count 9.6 X10*3/uL (4.8-10.8)
[2024-02-01 13:33] LABS: Alanine Aminotransferase 11 U/L (0-31); Albumin Level 4.1 g/dL (3.5-5.0); Alkaline Phosphatase 60 U/L (39-117); Anion Gap 10 (12-20); Aspartate Amino Transferase 12 U/L (5-31); Bilirubin Total 0.4 mg/dL (0.0-1.0); Blood Urea Nitrogen 16 mg/dL (9-16); C Reactive Protein 0.32 mg/dL (< or = 0.50); Calcium 9.9 mg/dL (8.4-10.2); Carbon Dioxide 27 mmol/L (22-29); Chloride 106 mmol/L (96-108); Estimated Glomerular Filt Rate > 60; Glucose Random 92 mg/dL (60-115); Iron 17 mcg/dL (30-160); Percent Iron Saturation 5 % (15-50); Potassium 4.4 mmol/L (3.3-5.1); Sodium 139 mmol/L (135-145); Total Iron Binding Capacity 352 mcg/dL (228-428); Total Protein 7.1 g/dL (6.5-8.0); Unsaturated Iron Binding 335 ug/dL
[2024-02-01 13:51] LABS: TSH reflex Free T4 0.64 uIU/mL (0.32-4.0); Vitamin D 25-OH Total 19.6 ng/mL (>30)
[2024-02-01 13:58] LABS: Folate 6.6 ng/mL (> or = 4.0); Vitamin B12 648 pg/mL (200-900)
== END 2024-02-01 09:52 | disposition home or self-care (01) ==
LOC: HO.CHCLDS 09:51
PROVIDERS: Visit Provider Internal Medicine Geriatric Medicine
DX: R53.83 Other fatigue (principal); R42 Dizziness and giddiness; M25.50 Pain in unspecified joint; Z86.2 Personal history of diseases of the blood and blood-forming organs and certain disorders involving the immune mechanism
CPT/HCPCS: 36415; 80053; 82306; 82607; 82746; 83540; 84443; 85025; 86140

== ENCOUNTER 2024-02-02 16:39 | Emergency (ER) | payer MEDICAID, SELFPAY ==
--- NOTE | 2024-02-02 16:40 | ECG_ITS ---
Test Reason : CHEST PAIN Blood Pressure : / mmHG Vent. Rate : 100 BPM Atrial Rate : 100 BPM P-R Int : 174 ms QRS Dur : 082 ms QT Int : 350 ms P-R-T Axes : 041 044 019 degrees QTc Int : 451 ms Normal sinus rhythm Nonspecific ST abnormality Abnormal ECG When compared with ECG of 11-MAR-2023 17:51, No significant change was found Referred By: Sachi Morgan Electronically Signed By:JEFF HOWE
[2024-02-02 16:47] VITALS: BP 151/81; PULSE 97; RESP 18; TEMP 36.7; O2SAT 100; BMI 34.4
--- NOTE | 2024-02-02 16:54 | ED_ITS ---
HPI - Chest Pain General Chief Complaint: Chest Pain Stated Complaint: chest pain Time Seen by Provider: 02/02/24 21:07 Related Data Previous Rx's ?Medication ?Instructions ?Recorded albuterol sulfate 90 mcg/actuation 2 puff inhalation QID PRN 10/27/20 aerosol inhaler shortness of breath or wheezing #6.7 grams amoxicillin 500 mg capsule 500 mg PO Q12H 7 days #14 caps 10/27/20 prednisone 20 mg tablet 40 mg (2 x 20 mg) PO DAILY 4 days 10/27/20 #8 tabs ferrous sulfate 325 mg (65 mg 325 mg PO Q OTHER DAY #30 tabs 03/11/23 iron) tablet (iron) Allergies Allergy/AdvReac Type Severity Reaction Status Date / Time No Known Allergies Allergy Verified 02/02/24 16:56 [facility] Past Medical History Medical History Asthma Social History Social History Alcohol intake: never Patient Tobacco Use Status: Never used Tobacco Physical Exam 2 Vital Signs: Vital Signs: Last Vital Signs Temp 98.5 F 02/02/24 21:40 Pulse 75 02/02/24 21:40 Resp 16 02/02/24 21:40 BP 105/60 02/02/24 21:40 Pulse Ox 99 02/02/24 21:40 O2 Del Method Room Air 02/02/24 21:40 BMI result Body Mass Index 34.4 Course Course Course Narrative: This is a Rapid Medical Exam performed in triage by aSchi Morgan PA-C. Full HPI, ROS and PE to be performed by primary ED provider. 33yo F w/PMHx asthma presenting to the ED c/o constant sharp chest pain x2 days w/myalgias, lethargy. Admits to mild SOB. denies cough. Saw PCP Sunday & had labs. Known chronic anemia, has received transfusions in the past (last a few years ago) PE: talking in complete sentences, ambulating w/steady gait Plan: EKG, labs, CXR, viral testing Medical Decision Making Lab Data 02/02/24 17:15 02/02/24 17:15 Labs: Lab Results 02/02/24 02/02/24 Range/Units 17:15 19:02 WBC 12.9 H (4.8-10.8) X10*3/uL RBC 4.64 (4.20-5.50) X10*6/uL Hgb 9.4 L (12.0-16.0) g/dl Hct 31.4 L (37.0-47.0) % MCV 67.7 L (80.0-98.0) fL MCH 20.3 L (27.0-33.0) pg MCHC 29.9 L (31.0-35.0) g/dl RDW 18.1 H (11.0-16.0) % Plt Count 487 H (160-400) X10*3/uL MPV 10.0 (9.4-12.3) fL Immature Gran % (Auto) 0.5 H (0.0-0.4) % Neut % (Auto) 66.3 (45-73) % Lymph % (Auto) 23.9 (20-40) % [place] % (Auto) 5.3 (2-11) % Eos % (Auto) 3.3 (0-4) % Baso % (Auto) 0.7 (0-2) % Lymph # (Auto) 3.1 (1.2-4.9) X10*3/uL [place] # (Auto) 0.7 (0.1-1.2) X10*3/uL Eos # (Auto) 0.4 (0.0-0.4) X10*3/uL Baso # (Auto) 0.1 (0.0-0.2) X10*3/uL Abs Immat Gran (auto) 0.06 H (0.00-0.03) X10*3/uL Absolute Neuts (auto) 8.5 H (2.0-8.3) x10*3/uL Absolute Nucleated RBC 0.000 (0.0-0.012) X10*3/uL Nucleated RBC % (auto) 0.0 (0.0-0.2) /100WBC Sodium 138 (135-145) mmol/L Potassium 3.9 (3.3-5.1) mmol/L Chloride 104 (96-108) mmol/L Carbon Dioxide 26 (22-29) mmol/L Anion Gap 12 (12-20) BUN 15 (9-16) mg/dL Creatinine 0.74 (0.5-1.4) mg/dL Estim Creat Clear Calc 109.6 Estimated GFR > 60 Random Glucose 106 (60-115) mg/dL Calcium 9.1 D (8.4-10.2) mg/dL Magnesium 2.1 (1.6-2.6) mg/dL Total Bilirubin 0.7 (0.0-1.0) mg/dL Direct Bilirubin 0.2 (0.0-0.5) mg/dL AST 12 (5-31) U/L ALT 12 (0-31) U/L Alkaline Phosphatase 65 (39-117) U/L Troponin I High Sens < 2.7 (<3.5-17.0) ng/L Total Protein 7.0 (6.5-8.0) g/dL Albumin 4.3 (3.5-5.0) g/dL Urine Color Yellow Urine Appearance Clear Urine pH 7.0 (5.0-9.0) Ur Specific [place] 1.020 (1.005-1.025) Urine Protein Negative (Neg-Trace) mg/dL Urine Glucose (UA) Negative (Negative) mg/dL Urine Ketones Negative (Negative) mg/dL Urine Blood Negative (Negative) Urine Nitrite Negative (Negative) Ur Leukocyte Esterase Negative (Negative) Influenza Type A (PCR) NEGATIVE (Negative) Influenza Type B (PCR) NEGATIVE (Negative) RSV RNA Qual (PCR) NEGATIVE (Negative) SARS-CoV-2 RNA (RT-PCR) NEGATIVE (Negative) Discharge Plan Discharge Clinical Impression: Atypical chest pain Patient Disposition: Home, Self-Care Instructions: Noncardiac Chest Pain (ED) Additional Instructions: Your primary care doctor Your chest pain is not cardiac Prescriptions: No Action amoxicillin 500 mg capsule 500 mg PO Q12H 7 Days Qty: 14 0RF prednisone 20 mg tablet 40 mg PO DAILY 4 Days Qty: 8 0RF albuterol sulfate 90 mcg/actuation HFA aerosol inhaler 2 puff inhalation QID PRN (Reason: shortness of breath or wheezing) Qty: 6.7 0RF ferrous sulfate [iron] 325 mg (65 mg iron) tablet 325 mg PO Q OTHER DAY Qty: 30 0RF Interventions: ED Discharge Assessment Last Done: 02/02/24 21:40 Discharge Date/Time: 02/02/24 21:41 Print Language: Amharic
[2024-02-02 17:22] LABS: MANUAL DIFF FLAG NO
[2024-02-02 17:41] LABS: Basophils Absolute Auto 0.1 X10*3/uL (0.0-0.2); Basophils Percent Auto 0.7 % (0-2); Eosinophils Absolute Auto 0.4 X10*3/uL (0.0-0.4); Eosinophils Percent Auto 3.3 % (0-4); Hematocrit 31.4 % (37.0-47.0); Hemoglobin 9.4 g/dl (12.0-16.0); Imm Gran Abs Auto 0.06 X10*3/uL (0.00-0.03); Imm Gran Pct Auto 0.5 % (0.0-0.4); Lymphocytes Absolute Auto 3.1 X10*3/uL (1.2-4.9); Lymphocytes Percent Auto 23.9 % (20-40); Mean Corpuscular HGB Conc 29.9 g/dl (31.0-35.0); Mean Corpuscular Hemoglobin 20.3 pg (27.0-33.0); Mean Corpuscular Volume 67.7 fL (80.0-98.0); Monocytes Absolute Auto 0.7 X10*3/uL (0.1-1.2); Monocytes Percent Auto 5.3 % (2-11); Neutrophils Absolute Auto 8.5 x10*3/uL (2.0-8.3); Neutrophils Percent Auto 66.3 % (45-73); Platelet Count 487 X10*3/uL (160-400); Red Blood Count 4.64 X10*6/uL (4.20-5.50); Red Cell Distribution Width 18.1 % (11.0-16.0); White Blood Count 12.9 X10*3/uL (4.8-10.8)
[2024-02-02 17:43] LABS: Troponin-I High Sensitivity < 2.7 ng/L (<3.5-17.0)
[2024-02-02 17:49] LABS: Alanine Aminotransferase 12 U/L (0-31); Albumin Level 4.3 g/dL (3.5-5.0); Alkaline Phosphatase 65 U/L (39-117); Anion Gap 12 (12-20); Aspartate Amino Transferase 12 U/L (5-31); Bilirubin Direct 0.2 mg/dL (0.0-0.5); Bilirubin Total 0.7 mg/dL (0.0-1.0); Blood Urea Nitrogen 15 mg/dL (9-16); Calcium 9.1 mg/dL (8.4-10.2); Carbon Dioxide 26 mmol/L (22-29); Chloride 104 mmol/L (96-108); Creatinine Clr Calc Pharmacy 109.6; Estimated Glomerular Filt Rate > 60; Glucose Random 106 mg/dL (60-115); Magnesium 2.1 mg/dL (1.6-2.6); Potassium 3.9 mmol/L (3.3-5.1); Sodium 138 mmol/L (135-145)
[2024-02-02 18:01] LABS: Influenza A PCR NEGATIVE (Negative); Influenza B PCR NEGATIVE (Negative); Resp Syncy Virus RNA Qual PCR NEGATIVE (Negative); SARS COV2 PCR INHOUSE NEGATIVE (Negative)
[2024-02-02 19:02] VITALS: BP 124/67; PULSE 80; RESP 18; O2SAT 100
[2024-02-02 19:14] LABS: Appearance Urine Clear; Color Urine Yellow; Glucose Urine UA Negative (Negative); Leukocyte Esterase Urine Negative (Negative); Nitrite Urine Negative (Negative); Urine Blood Negative (Negative); Urine Ketones Negative (Negative); Urine Protein Negative (Neg-Trace)
[2024-02-02 20:54] VITALS: BP 105/60; PULSE 75; RESP 16; TEMP 36.9; O2SAT 99
[2024-02-02 21:40] VITALS: BP 105/60; PULSE 75; RESP 16; TEMP 36.9; O2SAT 99
== END 2024-02-02 21:41 | disposition home or self-care (01) ==
PROVIDERS: Physician Assistant; Emergency Provider Internal Medicine; PCP Family Medicine
DX: R07.89 Other chest pain (principal); J45.909 Unspecified asthma, uncomplicated; M79.18 Myalgia, other site; R06.02 Shortness of breath; Z03.818 Encounter for observation for suspected exposure to other biological agents ruled out
CPT/HCPCS: 0241U; 80048; 80076; 81003; 83735; 84484; 85025; 93005; 99283; 99285

== ENCOUNTER → 2024-02-02 16:40 | Outpatient (BNV) | payer MEDICAID, SELFPAY | PROVIDERS: Emergency Provider Internal Medicine; PCP Family Medicine; Visit Provider Internal Medicine | DX: R94.31 Abnormal electrocardiogram [ECG] [EKG] (principal) | CPT/HCPCS: 93010 ==

== ENCOUNTER 2024-02-04 08:00 | Outpatient (REF) | payer MEDICAID, SELFPAY | END 2024-02-04 08:01 | disposition home or self-care (01) | LOC: HO.LNP 08:00 | PROVIDERS: Visit Provider Family Medicine | DX: Z13.89 Encounter for screening for other disorder (principal) ==

== ENCOUNTER 2024-02-04 14:37 | Outpatient (REF) | payer MEDICAID, SELFPAY ==
[2024-02-04 17:03] LABS: Rheumatoid Factor < 13.0 IU/mL (<15.0)
[2024-02-04 17:04] LABS: Cholesterol 199 mg/dL (<200); HDL Cholesterol 42 mg/dL (>40); LDL Cholesterol Calculated 120 mg/dL (<100); Triglycerides 186 mg/dL (<150)
[2024-02-04 17:16] LABS: Estimated Average Glucose 97 mg/dL; Hemoglobin A1C 78.1715 umol/L; Total Hemoglobin (HGBA1C) 2511.9847 umol/L
[2024-02-04 18:03] LABS: Erythrocyte Sedimentation Rate 12 MM/HR (0-20)
[2024-02-04 19:13] LABS: Reflex LDLD? No
[2024-02-05 08:47] LABS: Bacterial Vaginosis PCR NEGATIVE (Negative); Candida Group PCR NOT DETECTED (Not Detect); Candida glab krusei PCR NOT DETECTED (Not Detect); Trichomonas vaginalis PCR NOT DETECTED (Not Detect)
[2024-02-05 09:13] LABS: CT PCR NOT DETECTED (Not Detect.); NG PCR NOT DETECTED (Not Detect.)
[2024-02-06 11:28] LABS: Anti Nuclear Antibody Screen NEGATIVE (NEGATIVE)
[2024-02-06 17:08] LABS: HPV mRNA E6/E7 Not Detected (Not Detected)
[2024-02-06 21:49] LABS: Immunoglobulin A 208 mg/dL (47-310); Transglutaminase IgA <1.0 U/mL
[2024-02-07 10:49] LABS: C. trachomatis RNA TMA NOT DETECTED
[2024-02-07 10:50] LABS: N. gonorrhoeae RNA TMA NOT DETECTED; Trichomonas (NAAT) NOT DETECTED
[2024-02-07 13:48] LABS: Cyclic Citrullinated Peptide <16 UNITS
== END 2024-02-04 14:38 | disposition home or self-care (01) ==
LOC: HO.HHCL 14:37
PROVIDERS: Visit Provider Family Medicine
DX: Z01.419 Encounter for gynecological examination (general) (routine) without abnormal findings (principal); M25.50 Pain in unspecified joint; M79.10 Myalgia, unspecified site; D64.9 Anemia, unspecified; Z13.1 Encounter for screening for diabetes mellitus; Z13.220 Encounter for screening for lipoid disorders
CPT/HCPCS: 0352U; 36415; 80061; 82784; 83036; 85652; 86038; 86200; 86364; 86431; 87491; 87591; 87624; 87661; 88175

== ENCOUNTER 2024-02-11 12:27 | Outpatient (REF) | payer MEDICAID, SELFPAY | END 2024-02-11 12:28 | disposition home or self-care (01) | LOC: HO.LNP 12:27 | PROVIDERS: Visit Provider Family Medicine | DX: D64.9 Anemia, unspecified (principal) | CPT/HCPCS: 87338 ==

== ENCOUNTER → 2024-03-19 08:44 | Outpatient (BNV) | payer MEDICAID, SELFPAY | PROVIDERS: PCP Family Medicine; Referring Provider Family Medicine; Visit Provider Internal Medicine | DX: D50.9 Iron deficiency anemia, unspecified (principal); N92.0 Excessive and frequent menstruation with regular cycle | CPT/HCPCS: 99204 ==

== ENCOUNTER 2024-05-02 08:15 | Outpatient (RCR) | payer MEDICAID, SELFPAY ==
[2024-03-25 10:23] VITALS: BP 120/50; PULSE 80; RESP 16; TEMP 36.6; O2SAT 96
[2024-03-25] MEDS: Iron Sucrose Complex 200 MG/10 ML VIAL IVPUSH (10:30)
[2024-04-04 08:24] VITALS: BP 122/87; PULSE 86; RESP 16; TEMP 36.3; O2SAT 100
[2024-04-04] MEDS: Iron Sucrose Complex 200 MG/10 ML VIAL IVPUSH (08:32)
[2024-04-11 09:28] VITALS: BP 122/76; PULSE 83; RESP 18; TEMP 36.6
[2024-04-11] MEDS: Iron Sucrose Complex 200 MG/10 ML VIAL IVPUSH (09:33)
[2024-04-18 12:56] VITALS: BP 145/53; PULSE 94; RESP 20; TEMP 36.1; O2SAT 99
[2024-04-18] MEDS: Iron Sucrose Complex 200 MG/10 ML VIAL IVPUSH (13:01)
[2024-04-25 08:53] VITALS: BP 136/87; PULSE 84; RESP 16; TEMP 36.1; O2SAT 100
[2024-04-25] MEDS: Iron Sucrose Complex 200 MG/10 ML VIAL IVPUSH (09:00)
[2024-05-02 08:19] VITALS: BP 122/81; PULSE 90; RESP 18; TEMP 36.2; O2SAT 99
[2024-05-02] MEDS: Iron Sucrose Complex 200 MG/10 ML VIAL IVPUSH (08:29)
== END 2024-05-02 08:41 | disposition home or self-care (01) ==
LOC: HO.INF 08:15
PROVIDERS: Visit Provider Internal Medicine
DX: D64.9 Anemia, unspecified (principal)
CPT/HCPCS: 96374; J1756

== ENCOUNTER 2024-05-27 08:43 | Outpatient (REF) | payer MEDICAID, SELFPAY | END 2024-05-27 08:44 | disposition home or self-care (01) | LOC: HO.HHCX 08:43 | PROVIDERS: Visit Provider Family Medicine | DX: M25.511 Pain in right shoulder (principal); G89.29 Other chronic pain | CPT/HCPCS: 73030 ==

== ENCOUNTER → 2024-05-27 08:43 | Outpatient (BNV) | payer MEDICAID, SELFPAY | PROVIDERS: Visit Provider Radiology Diagnostic Radiology | DX: M25.511 Pain in right shoulder (principal) | CPT/HCPCS: 73030 ==

== ENCOUNTER 2024-05-30 13:28 | Outpatient (REF) | payer MEDICAID, SELFPAY ==
--- NOTE | ~2024-05-30 | US_ITS ---
EXAMINATION: US PELVIS TRANSABDOMINAL AND TRANSVAGINAL HISTORY: chronic pelvic pain, history of tubal infertility COMPARISON: Comparison is made with the prior examination dated 02/18/2018. TECHNIQUE: Transabdominal and endovaginal real-time 2D frias-scale ultrasound was performed. Color Doppler was also performed. FINDINGS: Uterus: The uterus is normal in size, measuring 7.5 x 3.7 x 5.4 cm. Myometrium has a normal echotexture. No fibroids are identified. Endometrium: The endometrial stripe measures 10 mm in thickness. Right ovary: The right ovary measures 3.7 x 2.0 x 1.6 cm. The right ovary is normal in size and echotexture. Left ovary: The left ovary measures 4.0 x 2.5 x 2.9 cm. There is a thick-walled cystic structure measuring 2.1 x 2.7 x 2.2 cm which may represent a corpus luteum. Color Doppler analysis of the bilateral ovarian arteries and veins are normal. Pelvic fluid: There is a small amount of fluid in the cul-de-sac.. US/US pelvic and transvaginal IMPRESSION: Probable 2.1 x 2.7 x 2.2 cm corpus luteum in the left ovary. Follow-up is suggested to document resolution. Otherwise unremarkable pelvic ultrasound. Electronically signed by: Lavell Mccann MD 05/30/2024 02:34 PM [facility]
--- OUTSIDE RECORDS SUMMARY | 2024-05-30 13:39 | XMS_ITS | Encounter Summary ---
Author Organization [facility] Address [address] [place] [address] [address] [place] [address] Care Team Providers Care Lehr Loader Name Role Phone Ave Sol MD Primary Care Provider [phone] Reason for Visit * Reason Comments Med Refill Encounter Details Date Type Department Care Team ([facility] st Contact Info) Description 01/25/[address] [facility] [address] [place], [place] [phone] Sol MD [address] [place], [place] [id number] Moderate persistent asthma without complication Social History Tobacco Use Types Packs/Day Years Used Date Smoking Tobacco: Never Assessed Comments Unknown Sex and Gender Information Value Date Recorded Sex Assigned at Female 02/13/2022 10:15 AM EDT Legal Sex Female 10:15 AM EDT Gender Identity Female 02/13/2022 10:15 AM EDT Sexual Orientation Choose not to disclose 2021 10:15 AM EDT documented as of this encounter Plan of Treatment Not on file documented as of this encounter Visit Diagnoses Diagnosis Moderate persistent asthma without complication documented in this encounter Care Teams Lehr Loader Relationship Specialty Start Date End Date Ave Sol MD [address] [place], [place] [phone] PCP - General Family Medicine 04/16/18 documented as of this encounter
--- OUTSIDE RECORDS SUMMARY | 2024-05-30 13:39 | XMS_ITS | Clinical Summary ---
Author Organization [employer] Address [address] [facility] 7t [place] [address] Care Team Providers Care Library Clerical Assistant Name Role Phone Ave Sol MD Primary Care Provider [phone] Allergies No known active allergies Medications albuterol (2.5 MG/3ML) 0.083% nebulizer solutionIndicat ions:Moderate persistent asthma without complication USE 1 AMPULE USING A NEBULIZER EVERY 4 HOURS NEEDED FOR ASTHMA. NO MORE THAN FOUR TIMES DAILY 90 mL 1 02/01/20 24 Active albuterol (Ventolin HFA) 108 (90 Base) MCG/ACT inhalerIndicati ons:Wheezing INHALE 2 PUFFS BY MOUTH EVERY 4 TO 6 HOURS NEEDED 18 g 3 02/01/20 24 Active ferrous gluconate (Fergon) 324 (38 Fe) MG tablet Take 1 tablet (324 mg) by mouth every other day. 45 tablet 3 02/04/20 24 025 Active nicotine (Nicoderm CQ) 7 MG/24HR patch Place 1 patch on the skin 1 (one) time each day at the same time. 30 patch 1 05/26/19 25 Active docusate sodium (Colace) 100 MG capsule Take 1 capsule (100 mg) by mouth 2 times daily. 60 capsule 3 05/26/19 25 Active cholecalciferol (Vitamin D-3) 25 MCG (1000 UT) tablet Take 1 tablet (25 mcg) by mouth Once per day. 90 tablet 3 05/27/19 25 Active budesonide-form oterol (Symbicort) 80-4.5 MCG/ACT inhaler 2 puffs twice a day, and may use additional 1-2 puffs every 4 hours as needed for wheezing. Rinse mouth with water after use to reduce aftertaste and incidence of candidiasis. 1 each 05/27/19 25 Active cholecalciferol (Vitamin D-3) 25 MCG (1000 UT) tablet Take 1 tablet (25 mcg) by mouth Once per day. 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 The protocol was with estradiol and intramuscular progesterone. Her daughter was delivered on 03/24/2021. - She tried another IVF in 2022, and had a miscarriage at 9 weeks Vitamin D deficiency 05/27/2024 Assessment & Plan (05/27/2024 7:29 AM EST): - continue vitamin d supplementation - continue adequate dietary intake and outdoor activity with safe amount of sun exposure Constipation 05/26/2024 Assessment & Plan (05/27/2024 7:12 AM EST): - continue adequate fiber intake and water intake - will try docusate Chronic right shoulder pain 05/26/2024 Fatigue 02/04/2024 Assessment & Plan (02/04/2024 8:59 PM EDT): Suspect reported fatigue is due to low hgb found in recent ER visit. Hgb in ER was 9.4. -strongly advised pt to return to ER for transfusion -prescribed ferrous gluconate (Fergon) 324 (38 Fe) MG tablet -ordered other screening labs given pt's concern for underlying disease Myalgia 02/04/2024 Assessment & Plan (02/04/2024 9:03 PM EDT): Pt reports total body pains for months. Pt kept restating I think I have cancer... I just want to check if I have cancer. Denies any FHx of lupus, cancer, diabetes, or CAD. -ordered other screening labs given pt's concern for underlying disease 02/04/24 Cervical cancer screening 02/04/2024 Assessment & Plan (05/27/2024 7:16 AM EST): - last cotest on 02/04/24 NILM and negative high-risk HPV Assessment & Plan (02/04/2024 9:00 PM EDT): Performed PAP smear today, 02/04/24 due to pt's concern. -Last PAP was NILM In 2020. 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 - laparoscopy in 2018 showed significant pelvic adhesions. Although it appeared that the proximal portion of the right fallopian tube was opened by hysteroscopy, there was dense tissue over the tubal ostia of the left fallopian tube. 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 - patient is interested in having pelvic physical therapy for chronic pelvic pain Assessment & Plan (02/04/2024 9:01 PM EDT): PAP smear done today, 02/04/24. -sent SureSwab and STI testing done. Class 1 obesity 09/17/2023 Tobacco dependence syndrome 04/12/2015 Assessment & Plan (05/27/2024 7:15 AM EST): -smoking approx. 3-4 cigarettes/day -encouraged cessation. -will try NRT with patch Assessment & Plan (02/04/2024 8:57 PM EDT): -smoking approx. 3 cigarettes/day -encouraged cessation. Allergic rhinitis 01/27/2013 Asthma 01/27/2013 Assessment & Plan (05/27/2024 7:12 AM EST): - has been on albuterol PRN. - will switch to ICS/DAJA prn Assessment & Plan (02/04/2024 8:55 PM EDT): Controlled. -continue Ventolin and albuterol PRN. Anemia 01/27/2013 Assessment & Plan (05/27/2024 7:15 AM EST): - seen by Dr. Boyce, cutter banana room in [facility] in Feb 2024 - completed a series of iron infusion / Venofer - continue periodic lab - encouraged adequate dietary iron intake Assessment & Plan (02/04/2024 8:57 PM EDT): Hgb in ER was 9.4. Reports fatigue. -strongly advised pt to return to ER for transfusion -prescribed ferrous gluconate (Fergon) 324 (38 Fe) MG tablet Encounters Date Type Department Care Team Description 05/26/2024 10:00 AM EST Office Visit [facility] [address] [place] [phone] MD Mild intermittent asthma without complication (Primary Dx); Anemia, unspecified type; Chronic right shoulder pain; Constipation, unspecified constipation type; Pelvic pain; Tobacco dependence syndrome; Cervical cancer screening; Tubal infertility in female; Vitamin D deficiency; Dietary counseling; Exercise counseling; Class 1 obesity due to excess calories without serious comorbidity with body mass index (BMI) of 31.0 to 31.9 in adult 05/26/2024 Travel 05/21/2024 Telephone [facility] [address] [place] [address] Alana Salcedo MA chart prep 04/18/2024 Telephone [facility] [address] [place] [phone] Alana Salcedo MA may recall from Last 3 Months Immunizations Name Administration Dates Next Due Influenza injectable quadriv alent IIV4 with preservative 02/13/2018,01/18/2016,01/05/2015 Influenza injectable quadriv alent preservative free 03/21/2022,07/07/2021 Influenza, IIV3, injectable 01/01/2014 Influenza, Split (incl. maximino fied surface antigen) 01/27/2013 Pneumococcal Polysaccharide PPSV23 01/27/2013 Tdap 12/24/2020,01/27/2013 Family History Medical History Relation Name Comments Hypertension Mother Relation Name Status Comments Mother Social History Tobacco Use Types Packs/Day Years Used Date Smoking Tobacco: Every Day Cigarettes 0.3 14.1 Started: 2010 Smokeless Tobacco: Never Tobacco Cessation:Ready to Q uit: Not Asked; Counseling Given: Not Answered Alcohol Use Standard Drinks/Week Comments Never 0 (1 standard drink = 0.6 oz pur e alcohol) Depression Answer Date Recorded Patient Health Questionnaire-9 Score 6 02/04/2024 Patient Health Questionnaire-9 Score 6 02/04/2024 Last PHQ-9: Questionnaire Data Not on file 1 Housing Stability Answer Date Recorded What is your housing situation today? I have jignesh ambrocio 01/22/[address] you li ve. Do you have problems with any of the following? Mold;Water leaks 01/22/2024 Food Insecurity Answer Date Recorded Within the past 12 months, y ou worried that your food would run out before you got money to buy more: Never True 01/22/2024 Within the past 12 months,th e food you bought just didn't last and you didn't have enough money to get more: Never True 11/2023 Transportation Answer Date Recorded In the past 12 months, has l ack of transportation kept you from medical appts, meetings, work or from getting things needed for daily living? No 01/22/2024 Utilities Answer Date Recorded In the past 12 months, has t he electric, gas, oil or water company threatened to shut off services in your home? No 01/22/2024 Depression Answer Date Recorded Patient Health Questionnaire-2 Score 2 02/04/2024 Internet Access Answer Date Recorded Internet Access Q1 Yes 01/22/2024 Internet Access Q2 Not on file 01/22/2024 Comments Unknown Sex and Gender Information Value Date Recorded Sex Assigned at Female 02/13/2022 10:15 AM EDT Legal Sex Female 10:15 AM EDT Gender Identity Female 02/13/2022 10:15 AM EDT Sexual Orientation Choose not to disclose 2021 10:15 AM EDT Last Filed Vital Signs Vital Sign Reading Time Taken Comments Blood Pressure 118/79 05/26/2024 10:22 AM EST Pulse 71 05/26/2024 10:22 AM EST Temperature 36.2 ??C (97.1 ??F) 05/26/2024 1 0:22 AM EST Respiratory Rate 15 05/26/2024 10:2 2 AM EST Oxygen Saturation 98% 05/26/2024 10: 22 AM EST Inhaled Oxygen Concentration - - Weight 91.5 kg (201 lb 12.8 oz) 025 10:22 AM EST Height 161.4 cm (5' 3.54 ) 02/04/2024 1:29 PM ED T Body Mass Index 35.15 02/04/2024 1:29 PM EDT Plan of Treatment Health Maintenance Due Date Last Done Comments HIV Screening 1990 Family Planning (PISQ) 2005 Hepatitis C Screening 2008 Hepatitis A Vaccines (1 of 2 - Risk 2-dose series) 2009 Hepatitis B Vaccines (1 of 3 - 19+ 3-dose series) 2009 Pneumococcal Vaccine: Pediatrics (0 to 5 Years) and At-Risk Patients (6 to 49) Years) (2 of 2 - PCV) 01/27/2014 01/27/2013 COVID-19 Vaccine ( season) 2023 03/03/2022, 12/10/2021, 06/12/2021, Additional history exists Influenza Vaccine (#1) 2023 , 07/07/2021, 02/13/2018, Additional history exists SDOH Screening 01/21/2025 01/22/2024 Alcohol/Substance Use Screening 02/03/2025 02/04/2024 Depression Screening 02/03/2025 02/04/2024, 02/04/20 24 Tobacco Screening 05/26/2025 05/26/2024 Pap Smear 02/07/2027 02/08/2024, 02/04/2024 Cervical Cancer Screening 02/03/2029 HPV/Cotest 02/03/2029 02/04/2024 Lipid Panel 02/03/2029 02/04/2024 DTaP/Tdap/Td Vaccines (3 - Td or Tdap) 12/24/2030 12/24/2020, 01/27/2013 Zoster Vaccines (1 of 2) 2040 RSV Patients and Patients Aged 60 years or older (1 - 1-dose 75+ series) 2065 HIB Vaccines Aged Out No longer eligi ble based on patient's age to complete this topic HPV Vaccines Aged Out No longer eligi ble based on patient's age to complete this topic IPV Vaccines Aged Out No longer eligi ble based on patient's age to complete this topic Meningococcal Vaccine Aged Out No gisela leslye eligible based on patient's age to complete this topic RSV under 20 months Aged Out No longe r eligible based on patient's age to complete this topic Rotavirus Vaccines Aged Out No longer eligible based on patient's age to complete this topic Procedures Procedure Name Priority Date/Time Associated Diagnosis Comments XR SHOULDER 2+ VIEWS RIGHT Routine 05/27/2024 8:43 AM EST Chronic right shoulder pain LIPID PANEL WITH REFLEX TO DIRECT LDL Routine 02/04/2024 2:40 PM EDT Screening for lipid disorders THINPREP IMAGING PAP AND HPV MRNA E6/E7 Routine 02/04/2024 2:24 PM EDT from Last 3 Months or Most Recently Relevant to Health Maintenance Results * XR Shoulder 2+ Views Right (05/27/2024 8:43 AM EST) Anatomical Region Laterality Modality Upper Extremities, Shoulder Right Radi ographic Imaging 05/27/2024 8:43 AM EST Narrative 05/27/2024 9:21 AM EST ?[facility] ?[address] ?[place] [address] ?XRay Report ? Signed ? Patient: Berg,Seda L ?MR#: [id number] ?? [id number] ? : 1990 ?Acct:[id number] ? Age/Sex: 33 / F ?ADM Date: 02/11/25 ? Loc: HO.HHCX ? Attending Dr: Ave Sol MD ? Ordering Physician: Ave Sol MD ?? Date of Service: 05/27/24 ?? Procedure(s): XR shoulder RT min 2V ?? Accession Number(s): [id number] ? cc: Ave Sol MD ? EXAMINATION: ?? XR SHOULDER, RIGHT ? CLINICAL INFORMATION: ?? right shoulder pain, 3 mo, no injury. ??Lateral and posterior. ? COMPARISON: ?? None available. ? TECHNIQUE: ?? AP external rotation, Grashey, scapular Y, and axillary views of the ?? right shoulder. ? FINDINGS: ?? No fracture, dislocation, or suspicious bone lesion. Normal alignment. ?? Normal glenohumeral joint. Normal AC joint. ?? Preserved subacromial space. ? There is extensive calcification of the infraspinatus tendon. ?? No additional soft tissue abnormalities. ? XR/XR shoulder RT min 2V ?? IMPRESSION: ?? 1. Calcific tendinopathy of the infraspinatus tendon. ?? 2. Exam otherwise normal. ? Electronically signed by: ??Dereje Bustamante MD ??05/27/2024 09:19 AM EST RP ? Dictated By: ?Dereje Bustamante MD ? Signed By: ?<Electronically signed by Dereje Bustamante MD in OV> ?05/27/24 0919 ? DD/ 0843 ? TD/TT: 05/27/24 0900 ? Prism Inspector: ? Procedure Note Donkellenadalter, Image - 05/27/2024 [place] [address] XRay Report Signed Patient: Seda Berg LMR#: [id number] : 1990Acct:[id number] Age/Sex: 33 / FADM Date: 05/27/24 Loc: HO.HHCX Attending Dr: Ave Sol MD Ordering Physician: Ave Sol MD Date of Service: 05/27/24 Procedure(s): XR shoulder RT min 2V Accession Number(s): [id number] cc: Ave Sol MD EXAMINATION: XR SHOULDER, RIGHT CLINICAL INFORMATION: right shoulder pain, 3 mo, no injury. Lateral and posterior. COMPARISON: None available. TECHNIQUE: AP external rotation, Grashey, scapular Y, and axillary views of the right shoulder. FINDINGS: No fracture, dislocation, or suspicious bone lesion. Normal alignment. Normal glenohumeral joint. Normal AC joint. Preserved subacromial space. There is extensive calcification of the infraspinatus tendon. No additional soft tissue abnormalities. XR/XR shoulder RT min 2V IMPRESSION: 1. Calcific tendinopathy of the infraspinatus tendon. 2. Exam otherwise normal. Electronically signed by: Dereje Bustamante MD 05/27/2024 09:19 AM EST Workstation: [id number] Dictated By: Dereje Bustamante MD Signed By: <Electronically signed by Dereje Bustamante MD in OV> 05/27/24918 DD/ 2 TD/TT: 05/27/24899 Prism Inspector: Ave Sol MD IMG XR PROCEDURES Final Result * (ABNORMAL) Lipid Panel with Reflex to Direct LDL (02/04/2024 2:40 PM EDT) Triglycerides 186(H) <150 mg/dL [facility] Comment:Desirable Triglyceri de: less than 150 mg/dLBorderline High Triglyceride 150-199 mg/dLHigh Triglyceride: 200-499 mg/dLVery High Triglyceride: greater than or equal to 5OO mg/dL Cholesterol 199 <200 mg/dL [facility] Comment:Desirable Cholestero l: less than 200 mg/dLBorderline High Cholesterol: 200-239 mg/dLHigh Cholesterol: greater than 239 mg/dL LDL Cholesterol Calculated 120(H) <100 mg/dL [facility] Comment:Desirable LDL: less than 100 mg/dLNear Optimal/Above Optimal LDL: 110- 129 mg/dLBorderline High LDL: 130-159 mg/dLHigh LDL: 160-189 mg/dLVery High LDL: greater than or equal to 190 mg/dL HDL Cholesterol 42 >40 mg/dL [facility] Comment:Desirable HDL: great er than 40 mg/dL Note: This HDL assay may give artificially low results in patients with liver disease. Blood 02/04/2024 2:40 PM EDT 02/04/2024 4:[address] Sol MD LAB BLOOD ORDERABLES Final Resul t [facility] [address] [place] [address] [phone] * ThinPrep Imaging Pap and HPV mRNA E6/E7 (02/04/2024 2:24 PM EDT) HPV nRNA E6/E7 Not Detected Not Detected [facility] Comment:Methodology: Transcr iption-Mediated AmplificationThis assay detects E6/E7 viral messenger RNA (mRNA) from 14high-risk HPV types (16,18,31,33,35,39,45,51,52,56,58,59,66,68).Cervical sources are required for HPV testing.If a vaginal source from a patient who has had atotal hysterectomy with removal of cervix wassubmitted, please contact the testing laboratoryfor alternative testing options.For additional information, please refer tohttp://education.Warply/faq/ROE425m2(This link if provided for information/educational purposes only.)THIS TEST WAS PERFORMED AT:[facility] [address] [id number] SARGENT MD SOURCE: SEE NOTE [facility] Comment:Cervix Report Status: [facility] Clinical Information: SEE NOTE [facility] Comment:NEGATIVE EMB IN 2020 LMP: SEE NOTE [facility] Comment:01/21/24 Prev. PAP: SEE NOTE [facility] Comment:NONE GIVEN Prev. BX: SEE NOTE [facility] Comment:NONE GIVEN Statement Of Adequacy: SEE NOTE [facility] Comment:Satisfactory for teo luation.Endocervical/transformation zone componentpresent. General Categorization: [facility] Interpretation/Result: SEE NOTE [facility] Comment:Cytology Results: Ne gative for intraepitheliallesion or malignancy. Cytology Comment SEE NOTE [facility] Comment:This Pap test has be en evaluated with computerassisted technology. Weblogic Administrator: SEE NOTE [facility] Comment:RMM, CT(ASCP)CT scre ening location: [address] [address] Review Weblogic Administrator: [facility] Pathologist [facility] PAP Infection [facility] See Note SEE NOTE [facility] Comment:EXPLANATORY NOTE:The Pap is a screening test for cervical cancer. It isnot a diagnostic test and is subject to false negativeand false positive results. It is most reliable when asatisfactory sample, regularly obtained, is submittedwith relevant clinical findings and history, and whenthe Pap result is evaluated along with historic andcurrent clinical information. 02/04/2024 2:24 PM EDT 02/04/2024 5:35 PM EDT Narrative [facility] - 02/07/2024 10:49 AM EDT SEE SCANNED RESULTS IN E[place]NEGATIVE EMB [place] [id number] us Ave Sol MD LAB PATHOLOGY ORDERABLES Final R esult [facility] [address] [place] [address] [phone] from Last 3 Months or Most Recently Relevant to Health Maintenance Insurance [facility] [address] [place] [id number] [place] [id number] Care Teams Library Clerical Assistant Relationship Specialty Start Date End Date Ave Sol MD [address] [place] [phone] PCP - General Family Medicine 04/16/18
--- OUTSIDE RECORDS SUMMARY | 2024-05-30 13:39 | XMS_ITS | Encounter Summary ---
Author Organization [employer] Address [address] [facility] 7t [place] [address] Care Team Providers Care Documentation Engineer Name Role Phone Ave Sol MD Primary Care Provider [phone] Encounter Details Date Type Department Care Team (Late st Contact Info) Description 02/26/2024 Orders Only [facility] [address] [place], [place] [phone] Ave Sol MD [address] [place], [place] [phone] Anemia, unspecified type (Primary Dx); Iron deficiency Social History Tobacco Use Types Packs/Day Years Used Date Smoking Tobacco: Former Cigarettes 0.3 14.1 S tarted: 2010 Smokeless Tobacco: Never Alcohol Use Standard Drinks/Week Comments Never 0 (1 standard drink = 0.6 oz pur e alcohol) Depression Answer Date Recorded Patient Health Questionnaire-9 Score 6 02/04/2024 Patient Health Questionnaire-9 Score 6 02/04/2024 Last PHQ-9: Questionnaire Data Not on file 1 Housing Stability Answer Date Recorded What is your housing situation today? I have jignehs albrecht 01/22/[address] you li [...] as of this encounter Plan of Treatment Scheduled Orders Name Type Priority Associated Diagnoses Orde r Schedule Helicobacter pylori??Antigen, EIA, Stool Lab Routine Anemia, unspecified type Iron deficiency Expected: 02/26/2024 (Approximate), Expires: 02/25/2025 documented as of this encounter Visit Diagnoses Diagnosis Anemia, unspecified type- Primary Iron deficiency Disorders of iron metabolism documented in this encounter Additional Health Concerns Assessment Noted Time PHQ-9 Depression Total Score: 6 02/04/20 24 1:31 PM EDT documented as of this encounter Care Teams Documentation Engineer Relationship Specialty Start Date End Date Ave Sol MD [address] [place] [id number] PCP - General Family Medicine 04/16/18 documented as of this encounter
--- OUTSIDE RECORDS SUMMARY | 2024-05-30 13:39 | XMS_ITS | Encounter Summary ---
Author Organization [employer] Address [address] [facility] 7t [place] [address] Care Team Providers Care Natural Resource Manager Name Role Phone Ave Sol MD Primary Care Provider [phone] Reason for Visit * Reason Onset Date Comments Nurse Triage 09/13/2023 Encounter Details Date Type Department Care Team ([facility] st Contact Info) Description 09/13/2023 Telephone [facility] [address] [place], [place] [phone] Ave Sol MD [address] [place], [place] [phone] Nurse Triage Social History Tobacco Use Types Packs/Day Years Used Date Smoking Tobacco: Never Assessed Comments Unknown Sex and Gender Information Value Date Recorded Sex Assigned at Female 02/13/2022 10:15 AM EDT Legal Sex Female 10:15 AM EDT Gender Identity Female 02/13/2022 10:15 AM EDT Sexual Orientation Choose not to disclose 2021 10:15 AM EDT documented as of this encounter Miscellaneous Notes * Telephone Encounter - Macarena Sams RN - 09/13/2023 1:25 PM EDT Called pt to triage, spoke to pt. Pt decline triage at this time and states has several chronic concerns to discuss with PCP. Pt requesting PE appt with PCP. Advised will task to team [place] to follow upand schedule PE as needed/appropriate. Advised to call back if worsening or new concerns. Pt understands and agrees with plan. Unable to verify insurance, no information in Epic. * Telephone Encounter - Elly Matias - 09/13/2023 1:03 PM EDT Symptom: Hip Pain - Not From Injury Outcome: Schedule an urgent appointment (within 1 hour) or talk to a nurse or provider soon Reason: Severe pain now The caller accepted this outcome Please contact pt at [phone] documented in this encounter Plan of Treatment Not on file documented as of this encounter Visit Diagnoses Not on filedocumented in this encounter Care Teams Natural Resource Manager Relationship Specialty Start Date End Date Ave Sol MD [address] [place] [phone] PCP - General Family Medicine 04/16/18 documented as of this encounter
--- OUTSIDE RECORDS SUMMARY | 2024-05-30 13:39 | XMS_ITS | Encounter Summary ---
Author Organization [employer] Address [address] [facility] [address] [place] [address] Care Team Providers Care Detail Maker And Fitter Name Role Phone Ave Sol MD Primary Care Provider [phone] Encounter Details Date Type Department Care Team (Latest Contact Info) Description 05/26/2024 Travel Social History Tobacco Use Types Packs/Day Years Used Date Smoking Tobacco: Every Day Cigarettes 0.3 14.1 Started: 2010 Smokeless Tobacco: Never Alcohol Use Standard Drinks/Week Comments Never 0 (1 standard drink = 0.6 oz pur e alcohol) Depression Answer Date Recorded Patient Health Questionnaire-9 Score 6 02/04/2024 Patient Health Questionnaire-9 Score 6 02/04/2024 Last PHQ-9: Questionnaire Data Not on file 1 Housing Stability Answer Date Recorded What is your housing situation today? I have jigneshsheldon albrecht 01/22/[address] you [...] Diagnoses Not on filedocumented in this encounter Additional Health Concerns Assessment Noted Time PHQ-9 Depression Total Score: 6 02/04/20 24 1:31 PM EDT documented as of this encounter Care Teams Detail Maker And Fitter Relationship Specialty Start Date End Date Ave Sol MD [address] [place] [address] PCP - General Family Medicine 04/16/18 documented as of this encounter
--- OUTSIDE RECORDS SUMMARY | 2024-05-30 13:39 | XMS_ITS | Encounter Summary ---
Author Organization [facility] Address [address] [place] [address] 7[address] [place] [address] Care Team Providers Care Bank Vault Clerk Name Role Phone Ave Sol MD Primary Care Provider [phone] Reason for Referral * Imaging (Routine) - Authorized Specialty Diagnoses / Procedures Referred By Contac t Referred To Contact Radiology Diagnoses Pelvic pain Procedures Us Pelvis complete Ave Sol MD [address] [place] [address] Phone: tel: fax: [address] Phone: tel: fax: Referral ID Status Reason Start Date Expiration Date V isits Requested Visits Authorized [id number] Authorized 05/27/2024 05/27/2025 1 1 * Imaging (Routine) - Authorized Specialty Diagnoses / Procedures Referred By Contac t Referred To Contact Radiology Diagnoses Pelvic pain Procedures US Pelvis Transvaginal Ave Sol MD [address] [place] [address] Phone: tel: fax: [address] Phone: tel: fax: Referral ID Status Reason Start Date Expiration Date V isits Requested Visits Authorized [id number] Authorized 05/27/2024 05/27/2025 1 1 * Consultation (Routine) - Pending Review Specialty Diagnoses / Procedures Referred By Andrea vernon Referred To Contact Obstetrics and Gynecology Diagnoses Pelvic pain Ave Sol MD [address] [place] [address] Phone: tel: fax: Referral ID Status Reason Start Date Expiration Date Visits Requested Visits Authorized [id number] Pending Review Specialty Services Required 05/27/2024 05/27/2025 1 1 * Consultation (Routine) - Pending Review Specialty Diagnoses / Procedures Referred By Andrea vernon Referred To Contact Physical Therapy Diagnoses Chronic right shoulder pain Ave Sol MD [address] [place] [address] Phone: tel: fax: Referral ID Status Reason Start Date Expiration Date Visits Requested Visits Authorized [id number] Pending Review Specialty Services Required 05/27/2024 05/27/2025 1 1 Encounter Details Date Type Department Care Team (Late st Contact Info) Description 05/26/2024 10:00 AM EST Office Visit [facility] [address] [place] [id number] [address] Sol MD [address] [place] [phone] Mild intermittent asthma without complication (Primary Dx); Anemia, unspecified type; Chronic right shoulder pain; Constipation, unspecified constipation type; Pelvic pain; Tobacco dependence syndrome; Cervical cancer screening; Tubal infertility in female; Vitamin D deficiency; Dietary counseling; Exercise counseling; Class 1 obesity due to excess calories without serious comorbidity with body mass index (BMI) of 31.0 to 31.9 in adult Social History Tobacco Use Types Packs/Day Years [...] your housing situation today? I have jignesh albrecht 01/22/[address] you [...] AM EDT documented as of this encounter Last Filed Vital Signs Vital Sign Reading [...] 12.8 oz) 025 10:22 AM EST Height - - Body Mass Index 35.15 02/04/2024 1:29 PM EDT documented in this encounter Progress Notes * Ave Sol MD - 05/26/2024 10:00 AM EST Subjective Seda Berg is a 33 y.o. female who has anemia, asthma and allergic rhinitis, and patient presents for follow up of chronic conditions. Background: Patient Active Problem List Diagnosis Allergic rhinitis Asthma Class 1 obesity Anemia Tobacco dependence syndrome Fatigue Myalgia Cervical cancer screening Pelvic pain Constipation Chronic right shoulder pain Tubal infertility in female Vitamin D deficiency Our last encounter was 02/04/2024. She was concerned that she might have a cancer because her friend was recently diagnosed with cancer. Cotest was done per patient's request. She has chronic iron deficiency anemia. She is intolerant to oral iron. She was referred back to patient support partner. Interval history: She sent a message regarding to abdominal pain and hip pain, requesting X-rays. She was seen by patient support partner on 03/19/24. She was arranged for Venofer 200 mg IV weekly. Today: Pt noted she completed her iron infusion therapy but is still feeling tired. Pt reports having a lot of pelvic pain and would like to try physical therapy for it. She also reports having intermittent shoulder pain for the last few months but denies pulling a muscle. She notesthe pain usually onsets when she???s laying down with her daughter and she takes muscle relaxers tohelp remedy the pain. The pain is mostly on the back of her shoulder, and she reports light numbness on her hand. Pt denies wrist pain. Pt reports having slight abdominal pain that might be due to constipation. Noting she uses the bathroom once a day but has to push to do so. Pt reports she uses her inhaler once in a while and recently ordered a refill. Pt is trying to quitsmoking but she currently smokes 3 or 4 cigarettes a day due to stress. She notes her and sister smoke cigarettes as well, which makes it difficult for her to quit. Pt agreed to try nicotine patches. 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 She last had an ultrasound when she had a miscarriage of IVF in 2022. Pt notes she is urinating well. Pt requested a refill for her Vitamin D prescription. Pt reports she is trying to get back into exercising because she wants to take her physical health more seriously and confirms she is eating morefruits and vegetables. Review of Systems Constitutional: Negative for activity change, appetite change and fever. Respiratory: Negative for shortness of breath. Cardiovascular: Negative for chest pain. Objective Vitals: 05/26/24 1022 BP: 118/79 Pulse: 71 Resp: 15 Temp: 97.1 ??F (36.2 ??C) TempSrc: Temporal SpO2: 98% Weight: 201 lb 12.8 oz (91.5 kg) Physical Exam Constitutional: General: She is not in acute distress. Appearance: Normal appearance. She is not ill-appearing. HENT: Head: Normocephalic and atraumatic. Mouth/Throat: Mouth: Mucous membranes are moist. Eyes: Extraocular Movements: Extraocular movements intact. Pupils: Pupils are equal, round, and reactive to light. Cardiovascular: Rate and Rhythm: Normal rate and regular rhythm. Heart sounds: No murmur heard. Pulmonary: Effort: Pulmonary effort is normal. No respiratory distress. Breath sounds: Normal breath sounds. No wheezing or rhonchi. Musculoskeletal: Right hip: Tenderness present. Left hip: Tenderness present. Comments: Pt experienced bilateral pelvic pain when palpated. Skin: General: Skin is warm. Neurological: Mental Status: She is alert. Mental status is at baseline. Psychiatric: Mood and Affect: Mood normal. Results: Lab Results Component Value Date NA 138 02/02/2024 K 3.9 02/02/2024 CL 104 02/02/2024 CO2 26 02/02/2024 BUN 15 02/02/2024 CREATININE 0.74 02/02/2024 CRCLCALCPH 109.6 02/02/2024 EGFR >60 02/02/2024 GLUCOSE 106 02/02/2024 TOTALBILIRUB 0.7 02/02/2024 AST 12 02/02/2024 ALT 12 02/02/2024 TOTPROTEIN 7.0 02/02/2024 ALB 4.3 02/02/2024 ALP 65 02/02/2024 Lab Results Component Value Date TRIG 186 (H) 02/04/2024 CHOL 199 02/04/2024 LDLCHOLCAL 120 (H) 02/04/2024 HDL 42 02/04/2024 Lab Results Component Value Date HGBA1C 5.0 02/04/2024 Lab Results Component Value Date WBC 12.9 (H) 02/02/2024 HGB 9.4 (L) 02/02/2024 HCT 31.4 (L) 02/02/2024 PLT 487 (H) 02/02/2024 MCV 67.7 (L) 02/02/2024 The ASCVD Risk score (Vinod LEES, et al., 2019) failed to calculate for the following reasons: The 2019 ASCVD risk score is only valid for ages 40 to 79 Screening and Health Care Maintenance: PHQ-2/9 Score: Patient Health Questionnaire-9 Score: 6 (02/04/2024 1:31 PM) Patient Health Questionnaire-2 Score: 2 (02/04/2024 1:31 PM) Thoughts that you would be better off or hurting yourself in some way: Not at all (02/04/2024 1:31 PM) LUCERO-7 Score: LUCERO-7 Total Score: 3 (02/04/2024 1:25 PM) Health Maintenance Due Topic Date Due HIV Screening Never done Family Planning (PISQ) Never done Hepatitis C Screening Never done Hepatitis B Vaccines (1 of 3 - 19+ 3-dose series) Never done Hepatitis A Vaccines (1 of 2 - Risk 2-dose series) Never done Pneumococcal Vaccine: Pediatrics (0 to 5 Years) and At-Risk Patients (6 to 49) Years) (2 of 2 - PCV) 01/27/2014 Influenza Vaccine (1) 12/16/2023 COVID-19 Vaccine (5 - 2023-25 season) 2023 Assessment/Plan Problem List Items Addressed This Visit Asthma - Primary - has been on albuterol PRN. - will switch to ICS/DAJA prn Anemia - seen by Dr. Boyce, patient support partner in [facility] - completed a series of iron infusion / Venofer - continue periodic lab - encouraged adequate dietary iron intake Tobacco dependence syndrome -smoking approx. 3-4 cigarettes/day -encouraged cessation. 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 - laparoscopy in 2018 showed significant pelvic adhesions. Although it appeared that the proximal portion of the right fallopian tube was opened by hysteroscopy, there was dense tissue over the tubalostia of the left fallopian tube. 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 - patient is interested in having pelvic physical therapy for chronic pelvic pain Relevant Orders Referral to Obstetrics / Gynecology US Pelvis Transvaginal Us Pelvis complete Constipation - continue adequate fiber intake and water intake - will try docusate Chronic right shoulder pain Relevant Orders XR Shoulder 2+ Views Right Referral to Physical Therapy Tubal infertility in female - followed by [facility] service - She conceived her daughter with a frozen embryo transfer cycle when 1 blastocyst was transferred.The protocol was with estradiol and intramuscular progesterone. Her daughter was delivered on 03/24/2021. - She tried another IVF in 2022, and had a miscarriage at 9 weeks Vitamin D deficiency - continue vitamin d supplementation - continue adequate dietary intake and outdoor activity with safe amount of sun exposure Other Visit Diagnoses Dietary counseling Exercise counseling Class 1 obesity due to excess calories without serious comorbidity with body mass index (BMI) of 31.0 to 31.9 in adult No Known Allergies Current Outpatient Medications Medication Instructions albuterol (2.5 MG/3ML) 0.083% nebulizer solution USE 1 AMPULE USING A NEBULIZER EVERY 4 HOURS NEEDED FOR ASTHMA. NO MORE THAN FOUR TIMES DAILY albuterol (Ventolin HFA) 108 (90 Base) MCG/ACT inhaler INHALE 2 PUFFS BY MOUTH EVERY 4 TO 6 HOURS NEEDED budesonide-formoterol (Symbicort) 80-4.5 MCG/ACT inhaler 2 puffs twice a day, and may use additional 1-2 puffs every 4 hours as needed for wheezing. Rinse mouth with water after use to reduce aftertaste and incidence of candidiasis. cholecalciferol (VITAMIN D-3) 25 mcg, Oral, Daily docusate sodium (COLACE) 100 mg, Oral, 2 times daily ferrous gluconate (FERGON) 324 mg, Oral, Every other day nicotine (Nicoderm CQ) 7 MG/24HR patch 1 patch, Transdermal, Every 24 hours Follow-up: 4 months for pelvic pain and constipation or sooner if any problem arises. Scribe Attestation: I, Caroline Sumi, am serving as a scribe to document services personally performed by Ave Sol MD, based on the patient's response to questions by provider and provides statements to me. documented in this encounter Miscellaneous Notes * Assessment & Plan Note - Ave Sol MD - 05/27/2024 7:29 AM ESTAssociated Problem(s): Vitamin D deficiency - continue vitamin d supplementation - continue adequate dietary intake and outdoor activity with safe amount of sun exposure * Assessment & Plan Note - Ave Sol MD - 05/27/2024 7:23 AM ESTAssociated Problem(s): Tubal infertility in female - followed by [facility] service - She conceived her daughter with a frozen embryo transfer cycle when 1 blastocyst was transferred.The protocol was with estradiol and intramuscular progesterone. Her daughter was delivered on 03/24/2021. - She tried another IVF in 2022, and had a miscarriage at 9 weeks * Assessment & Plan Note - Ave Sol MD - 05/27/2024 7:16 AM ESTAssociated Problem(s): Cervical cancer screening - last cotest on 02/04/24 NILM and negative high-risk HPV * Assessment & Plan Note - Ave Sol MD - 05/27/2024 7:15 AM ESTAssociated Problem(s): Tobacco dependence syndrome -smoking approx. 3-4 cigarettes/day -encouraged cessation. -will try NRT with patch * Assessment & Plan Note - Ave Sol MD - 05/27/2024 7:12 AM ESTAssociated Problem(s): Constipation - continue adequate fiber intake and water intake - will try docusate * Assessment & Plan Note - Caroline Jonas MA - 05/26/2024 12:58 PM EST Associated Problem(s): Anemia - seen by Dr. Boyce, patient support partner in [facility] Feb 2024 - completed a series of iron infusion / Venofer - continue periodic lab - encouraged adequate dietary iron intake * Assessment & Plan Note - Caroline Jonas MA - 05/26/2024 12:58 PM EST Associated Problem(s): Asthma - has been on albuterol PRN. 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 - laparoscopy in 2018 showed significant pelvic adhesions. Although it appeared that the proximal portion of the right fallopian tube was opened by hysteroscopy, there was dense tissue over the tubalostia of the left fallopian tube. 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 - patient is interested in having pelvic physical therapy for chronic pelvic pain documented in this encounter Plan of Treatment Scheduled Orders Name Type Priority Associated Diagnoses Orde r Schedule US Pelvis Transvaginal Imaging Routine Pelvic pain Expected: 05/27/2024, Expires: 05/27/2025 Us Pelvis complete Imaging Routine Pelvic pain Expected: 05/27/2024, Expires: 05/27/2025 Scheduled Referrals Name Type Priority Associated Diagnoses Order Schedule Referral to Physical Therapy Outpatient Referral Routine Chronic right shoulder pain Expected: 05/27/2024 (Approximate), Expires: 05/26/2025 Referral to Obstetrics / Gynecology Outpatient Referral Routine Pelvic pain Expected: 05/27/2024 (Approximate), Expires: 05/26/2025 documented as of this encounter Procedures Procedure Name Priority Date/Time Associated Diagnosis Comments XR SHOULDER 2+ VIEWS RIGHT Routine 05/27/2024 8:43 AM EST Chronic right shoulder pain documented in this encounter Results * XR Shoulder 2+ Views Right (05/27/2024 8:43 AM EST) Anatomical Region Laterality Modality Upper Extremities, Shoulder Right Radi ographic Imaging 05/27/2024 8:43 AM EST Narrative 05/27/2024 9:21 AM EST ?[facility] ?[address] ?[place] [address] ?XRay Report ? Signed ? Patient: Berg,Seda L ?MR#: [id number] ?? [id number] ? : 1990 ?Acct:[id number] ? Age/Sex: 33 / F ?ADM Date: 05/27/24 ? Loc: HO.HHCX ? Attending Dr: Ave Sol MD ? Ordering Physician: Ave Sol MD ?? Date of Service: 05/27/24 ?? Procedure(s): XR shoulder RT min 2V ?? Accession Number(s): [id number] ? cc: Ave Sol MD ? EXAMINATION: [...] DD/ 0843 ? TD/TT: 05/27/24 0900 ? Tube Pusher: ? Procedure Note [place], Image - 05/27/[address] [address] XRay Report Signed Patient: Seda Berg LMR#: [id number] : 1990Acct:[id number] Age/Sex: 33 / FADM Date: 05/27/24 Loc: HO.HHCX Attending Dr: Ave Sol MD Ordering Physician: Ave Sol MD Date of Service: 05/27/24 Procedure(s): XR shoulder RT min 2V Accession Number(s): [id number] cc: Ave Sol MD EXAMINATION: XR SHOULDER, [...] by: Dereje Bustamante MD 05/27/2024 09:19 AM [facility] Dictated By: Dereje Bustamante MD Signed By: <Electronically signed by Dereje Bustamante MD in [place]> 05/27/2419 DD/ 2 TD/TT: 05/27/24 09 Tube Pusher: Ave Sol MD IMG XR PROCEDURES Final Result documented in this encounter Visit Diagnoses Diagnosis Mild intermittent asthma without complication- Primary Anemia, unspecified type Chronic right shoulder pain Pain in joint, shoulder region Constipation, unspecified constipation type Pelvic pain Tobacco dependence syndrome Tobacco use disorder Cervical cancer screening Screening for malignant neoplasm of the cervix Tubal infertility in female Vitamin D deficiency Dietary counseling Dietary surveillance and counseling Exercise counseling Class 1 obesity due to excess calories without serious comorbidity with body mass index (BMI) of 31.0 to 31.9 in adult documented in this encounter Additional Health Concerns Assessment Noted Time PHQ-9 Depression Total Score: 6 02/04/20 24 1:31 PM EDT documented as of this encounter Care Teams Bank Vault Clerk Relationship Specialty Start Date End Date Ave Sol MD [address] [place] [id number] PCP - General Family Medicine 04/16/18 documented as of this encounter
--- OUTSIDE RECORDS SUMMARY | 2024-05-30 13:39 | XMS_ITS | Encounter Summary ---
Author Organization [employer] Address [address] [facility] [address] [place] [address] Care Team Providers Care Call Center Receptionist Name Role Phone Ave Sol MD Primary Care Provider [phone] Reason for Visit * Reason Onset Date Comments chart prep 05/21/2024 Encounter Details Date Type Department Care Team ([facility] st Contact Info) Description 05/21/2024 Telephone [facility] [address] [place], [place] [id number] Alana Salcedo MA chart prep Social History Tobacco Use Types Packs/Day Years [...] encounter Miscellaneous Notes * Telephone Encounter - Alana Salcedo MA - 05/21/2024 2:45 PM EST ..Chart Prep Labs: not done Images: not done us Vaccines due: Covid Due, Hep A Due, Hep B Due, and Flu Due Referrals: Completed Screenings: Not Applicable Overdue care gaps: None documented in this encounter Plan of Treatment Not on file documented as of this encounter Visit Diagnoses Not on filedocumented in this encounter Additional Health Concerns Assessment Noted Time PHQ-9 Depression Total Score: 6 02/04/20 24 1:31 PM EDT documented as of this encounter Care Teams Call Center Receptionist Relationship Specialty Start Date End Date Ave Sol MD [address] [place] [phone] PCP - General Family Medicine 04/16/18 documented as of this encounter
--- OUTSIDE RECORDS SUMMARY | 2024-05-30 13:39 | XMS_ITS | Encounter Summary ---
Author Organization [employer] Address [address] [facility] [address] [place] [address] Care Team Providers Care Renewable [employer] Project Manager Name Role Phone Ave Sol MD Primary Care Provider [phone] Encounter Details Date Type Department Care Team (Late st Contact Info) Description 06/16/2022 Orders Only [facility] [address] [place] [address] Caroline Villalta LPN Social History Tobacco Use Types Packs/Day Years [...] on file documented as of this encounter Procedures Procedure Name Priority Date/Time Associated Diagnosis Comments CULTURE, URINE, ROUTINE Routine 03/11/2023 6:48 PM EST URINALYSIS, COMPLETE, WITH REFLEX TO CULTURE Routine 03/11/2023 6:02 PM EST HCG, QL, URINE Routine 03/11/2023 6:02 PM EST INFLUENZA A B2 ID NOW (GAMBINO) Routine 03/11/2023 5:57 PM EST COVID-19 ID NOW (GAMBINO) Routine 03/11/2023 5:57 PM EST HIGH SENSITIVITY TROPONIN I Routine 03/11/2023 5:57 PM EST CBC WITH AUTO DIFFERENTIAL Routine 03/11/2023 5:57 PM EST MAGNESIUM Routine 03/11/2023 5:57 PM EST HEPATIC FUNCTION PANEL Routine 5:57 PM EST BASIC METABOLIC PANEL Routine 03/11/2023 5:57 PM EST CULTURE, URINE, ROUTINE Routine 02/27/2023 7:07 PM EST URINALYSIS, COMPLETE, WITH REFLEX TO CULTURE Routine 02/27/2023 6:28 PM EST HIGH SENSITIVITY TROPONIN I Routine 02/27/2023 5:35 PM EST CBC WITH AUTO DIFFERENTIAL Routine 02/27/2023 5:35 PM EST BETA-HCG, QUANTITATIVE (TUMOR MARKER) Routine 02/27/2023 5:35 PM EST PROTHROMBIN TIME-INR Routine 02/27/2023 5:35 PM EST MAGNESIUM Routine 02/27/2023 5:35 PM EST COMPREHENSIVE METABOLIC PANEL Routine 02/27/2023 5:35 PM EST documented in this encounter Results * Culture, Urine, Routine (03/11/2023 6:48 PM EST) Urine Urine specimen obtained by clean catch procedure / Unknown 03/11/2023 6:48 PM EST 03/11/2023 6:48 PM EST Comment:[facility] - 03/13/2023 10:21 AM EST Urine Culture Report Result Urine Culture 10,000 to 50,000 cfu/ml Urine Culture Mixed bacterial krystina characteristic of Urine Culture urogenital contamination. Specimen Source: Urine clean catch Generic External Data Provider LAB MICROBIOLOGY - GENERAL ORDERABLES Final Result Performing Organization Address City/[facility]/ZIP Co de Phone Number [facility] [address] [place] [address] [phone] * (ABNORMAL) Urinalysis, Complete, with Reflex to Culture (03/11/2023 6:02 PM EST) Color Urine Yellow [facility] Appearance Urine Cloudy [facility] PH 7.5 5.0 - 9.0 [facility] Glucose Urine UA Negative Negative mg/dL [facility] Urine Blood Large (3+)(A) Negative [facility] Specific Wilson - Urine >=1.030(H) 1.005 - 1.025 [facility] Urine Protein Negative Neg-Trace mg/dL [facility] Urine Ketones Negative Negative mg/dL [facility] Nitrite Urine Negative Negative [facility] Leukocyte Esterase Urine Negative Negative [facility] RBC Urine 11-20(A) 0 - 2 /HPF [facility] Urine WBC 6-10(A) 0 - 5 /HPF [facility] Urine Squamous Epithelial Cell 3-5 0 - 2 /HPF [facility] Urine Bacteria None Seen None Seen [facility] Hyaline Casts, Urine 0-2 0 - 2 /LPF [facility] 03/11/2023 6:02 PM EST 03/11/2023 6:12 PM EST Narrative [facility] - 03/11/2023 6:27 PM EST Urine, Clean Catch Generic External Data Provider LAB URINE ORDERAB LES Final Result Performing Organization Address [facility]/ZIP Co de Phone Number [facility] [address] [place] [phone] * HCG, Qualitative, Urine (03/11/2023 6:02 PM EST) Urine NEGATIVE NEGATIVE [facility] Comment:This test was develo ped to detect early . Falsenegative results may occur after the 5th - 7th week ofpregnancy when using this test method. If clinicallyindicated, consider a serum hCG. 03/11/2023 6:02 PM EST 03/11/2023 6:12 PM EST Generic External Data Provider LAB URINE ORDERAB LES Final Result Performing Organization Address [facility] Phone Number [facility] [address] [place] [phone] * High Sensitivity Troponin I (03/11/2023 5:57 PM EST) Pathologist [facility] TROPONIN I HIGH SENSITIVITY <2.7 <3.5 - 17.0 ng/L [facility] Comment:The Gambino high sens itivity Troponin-I results should beused in conjunction with other diagnostic information suchas ECG, clinical observations and information, and patientsymptoms to aid in the diagnosis of [place]. 03/11/2023 5:57 PM EST 03/11/2023 6:01 PM EST Generic External Data Provider LAB BLOOD ORDERAB LES Final Result Performing Organization Address [facility] Number [facility] [address] [place] [phone] * Magnesium (03/11/2023 5:57 PM EST) Magnesium 2.2 1.6 - 2.6 mg/dL [facility] 03/11/2023 5:57 PM EST 03/11/2023 6:01 PM EST Generic External Data Provider LAB BLOOD ORDERAB LES Final Result Performing Organization Address [facility] Phone Number [facility] [address] [place] [phone] * (ABNORMAL) Basic Metabolic Panel (03/11/2023 5:57 PM EST) Sodium 138 135 - 145 mmol/L [facility] Potassium 4.3 3.3 - 5.1 mmol/L [facility] Chloride 108 96 - 108 mmol/L [facility] Carbon Dioxide 24 22 - 29 mmol/L [facility] Anion Gap 10(L) 12 - 20 [facility] Urea Nitrogen (BUN) 19(H) 9 - 16 mg/dL [facility] Creatinine, Serum 0.88 0.5 - 1.4 mg/dL [facility] Creatinine Clr Calc Pharmacy 93.8 [facility] Comment:Provided height and weight: 157.48 cm,86.636 kg.eGFR (calculated from the MDRD study equation) and eCrCl(calculated from the Cockcroft-Gault equation) are based ondifferent parameters and may not yield comparable results.If eCrCl result is absurd, please check patient'sheight/weight. Estimated Glomerular Filt Rate >60 [facility] Comment:NOTE: For -Am erican individuals, multiply the result by 1.210.Chronic Kidney Disease: Estimated GFR < 60 mL/min/1.19l7Xeifml Kidney Disease: Estimated GFR < 15 mL/min/1.73m2 Glucose 94 60 - 115 mg/dL [facility] Calcium 9.1 8.4 - 10.2 mg/dL [facility] 03/11/2023 5:57 PM EST 03/11/2023 6:01 PM EST us Generic External Data Provider LAB BLOOD ORDERAB LES Final Result [facility] [address] [place] [phone] * Hepatic Function Panel (03/11/2023 5:57 PM EST) Pathologist [facility] Bilirubin, Total 0.3 0.0 - 1.0 mg/dL [facility] Bilirubin, Direct 0.1 0.0 - 0.5 mg/dL [facility] Aspartate Amino Transferase 13 5 - 31 U/L [facility] Alanine Aminotransferase 9 0 - 31 U/L [facility] Total Protein 7.1 6.5 - 8.0 g/dL [facility] Albumin Level 4.1 3.5 - 5.0 g/dL [facility] Alkaline Phosphatase 57 39 - 117 U/L [facility] 03/11/2023 5:57 PM EST 03/11/2023 6:01 PM EST Generic External Data Provider LAB BLOOD ORDERAB LES Final Result Performing Organization Address [facility] Co de Phone Number [facility] [address] [place] [phone] * Influenza A B2 ID NOW (Gambino) (03/11/2023 5:57 PM EST) IDNOW SERIAL# [id number] [facility] Influenza A Negative Negative [facility] Influenza B2 Negative Negative [facility] Influenza A B2 Note See Note [facility] Comment:The Gambino ID NOW In fluenza A B2 test is used for thequalitative detection of influenza A and B from patientswith signs and symptoms of respiratory infection.Negative results do not preclude influenza virus infectionand should not be used as the sole basis for diagnosis,treatment or other patient management decisions.There is a risk of false negative results due to thepresence of variants in the viral targets of the assay, lowlevels of virus in the specimen and co- infection withRespiratory Syncytial Virus. 03/11/2023 5:57 PM EST 03/11/2023 6:01 PM EST Generic External Data Provider LAB MICROBIOLOGY - GENERAL ORDERABLES Final Result Performing Organization Address [facility]/ZIP Co de Phone Number [facility] [address] [place] [phone] * COVID-19 ID NOW (GAMBINO) (03/11/2023 5:57 PM EST) IDNOW SERIAL# [id number] [facility] COVID-19 TEST Negative Negative [facility] COVID-19 NOTE See Note [facility] Comment: Results are for the identification of SARS-CoV2 RNA. TheSARS-CoV2 RNA is generally detectable in respiratory samplesduring the acute phase of infection. Positive results areindicative of the presence of SARS-CoV-2 RNA; clinicalcorrelation with patient history and other diagnosticinformation is necessary to determine patient infectionstatus. Positive results do not rule out bacterial infectionor co- infection with other viruses.Testing facilities within the [facility] and [facility] are required to report all positive results tothe appropriate public health authorities.Negative results should be treated as presumptive and, ifinconsistent with clinical signs and symptoms or necessaryfor patient management, should be tested with differentauthorized or cleared molecular tests. Negative results donot preclude SARS-CoV2 RNA infection and should not be usedas the sole basis for patient management decisions. Negativeresults should be considered in the context of a patient'srecent exposures, history and the presence of clinical signsand symptoms consistent with COVID-19.This test has been authorized by the FDA under an EmergencyUse Authorization (EUA) for use by authorized laboratories.Testing performed on the Nex[employer] NOW utilizing NAAT. 03/11/2023 5:57 PM EST 03/11/2023 6:01 PM EST us Generic External Data Provider LAB MOLECULAR JOSEPH GNOSTICS ORDERABLES Final Result [facility] [address] [place] [phone] * (ABNORMAL) CBC auto differential (03/11/2023 5:57 PM EST) White Blood Count 12.6(H) 4.8 - 10.8 X10*3/uL [facility] Red Blood Count 4.30 4.20 - 5.50 X10*6/uL [facility] Hemoglobin 8.9(L) 12.0 - 16.0 g/dl [facility] Hematocrit 30.3(L) 37.0 - 47.0 % [facility] Mean Corpuscular Volume 70.5(L) 80.0 - 98.0 fL [facility] Mean Corpuscular Hemoglobin 20.7(L) 27.0 - 33.0 pg [facility] Mean Corpuscular HGB Conc 29.4(L) 31.0 - 35.0 g/dl [facility] Red Cell Distribution Width 18.2(H) 11.0 - 16.0 % [facility] Platelet Count 429(H) 160 - 400 X10*3/uL [facility] Mean Platelet Volume 10.1 9.4 - 12.3 fL [facility] Neutrophils Percent Auto 63.3 45 - 73 % [facility] Imm Gran Pct Auto 0.4 0.0 - 0.4 % [facility] Lymphocytes Percent Auto 25.2 20 - 40 % [facility] Monocytes Percent Auto 5.1 2 - 11 % [facility] Eosinophils Percent Auto 5.2(H) 0 - 4 % [facility] Basophils Percent Auto 0.8 0 - 2 % [facility] NRBC Pct Auto 0.0 0.0 - 0.2 /100WBC [facility] Neutrophils Absolute Auto 8.0 2.0 - 8.3 x10*3/uL [facility] Imm Gran Abs Auto 0.05(H) 0.00 - 0.03 X10*3/uL [facility] Lymphocytes Absolute Auto 3.2 1.2 - 4.9 X10*3/uL [facility] Monocytes Absolute Auto 0.6 0.1 - 1.2 X10*3/uL [facility] Eosinophils Absolute Auto 0.7(H) 0.0 - 0.4 X10*3/uL [facility] Basophils Absolute Auto 0.1 0.0 - 0.2 X10*3/uL [facility] NRBC Abs Auto 0.000 0.0 - 0.012 X10*3/uL [facility] 03/11/2023 5:57 PM EST 03/11/2023 6:01 PM EST us Generic External Data Provider LAB BLOOD ORDERAB LES Final Result Performing Organization Address City/[facility]/ZIP Co de Phone Number [facility] [address] [place] [phone] * Culture, Urine, Routine (02/27/2023 7:07 PM EST) Urine Urine specimen obtained by clean catch procedure / Unknown 02/27/2023 7:07 PM EST 02/27/2023 7:07 PM EST Comment:UACC Narrative [facility] - 03/01/2023 9:07 AM EST Urine Culture Report Result Urine Culture 10,000 to 50,000 cfu/ml Urine Culture Mixed bacterial krystina characteristic of Urine Culture urogenital contamination. Specimen Source: Urine clean catch Generic External Data Provider LAB MICROBIOLOGY - GENERAL ORDERABLES Final Result Performing Organization Address [facility] Co de Phone Number [facility] [address] [place] [phone] * (ABNORMAL) Urinalysis, Complete, with Reflex to Culture (02/27/2023 6:28 PM EST) Color Urine Yellow [facility] Appearance Urine Clear [facility] PH 6.5 5.0 - 9.0 [facility] Glucose Urine UA Negative Negative mg/dL [facility] Urine Blood Negative Negative [facility] Specific Wilson - Urine >=1.030(H) 1.005 - 1.025 [facility] Urine Protein Negative Neg-Trace mg/dL [facility] Urine Ketones Negative Negative mg/dL [facility] Nitrite Urine Negative Negative [facility] Leukocyte Esterase Urine Small (1+)(A) Negative [facility] RBC Urine 0-2 0 - 2 /HPF [facility] Urine WBC 11-20(A) 0 - 5 /HPF [facility] Urine Squamous Epithelial Cell 6-10 0 - 2 /HPF [facility] Urine Bacteria Trace None Seen [facility] Hyaline Casts, Urine 0-2 0 - 2 /LPF [facility] 02/27/2023 6:28 PM EST 02/27/2023 6:30 PM EST Narrative [facility] - 02/27/2023 6:38 PM EST [id number], Clean Catch Generic External Data Provider LAB URINE ORDERAB LES Final Result Performing Organization Address [facility] Co de Phone Number [facility] [address] [place] [phone] * High Sensitivity Troponin I (02/27/2023 5:35 PM EST) [facility] TROPONIN I HIGH SENSITIVITY <2.7 <3.5 - 17.0 ng/L [facility] Comment:The Gambino high sens itivity Troponin-I results should beused in conjunction with other diagnostic information suchas ECG, clinical observations and information, and patientsymptoms to aid in the diagnosis of [place]. 02/27/2023 5:35 PM EST 02/27/2023 5:38 PM EST Generic External Data Provider LAB BLOOD ORDERAB LES Final Result Performing Organization Address [facility] Number [facility] [address] [place] [phone] * hCG, Total, Quantitative (02/27/2023 5:35 PM EST) Pathologist [facility] HCG Quantitative <2 mIU/mL [facility] Comment:Weeks post LMP Appro ximate hCG(Last Menstrual Period) Range (mIU/ml)3 - 4 weeks 9 - 1304 - 5 weeks 75 - 2,6005 - 6 weeks 850 - 20,8006 - 7 weeks 4000 - 100,2007 - 12 weeks 11,500 - 289,80750 - 16 weeks 18,300 - 137,85319 - 29 weeks (2nd trimester) 1,400 - 53,63564 - 41 weeks (3rd trimester) 940 - 60,000The Gambino B- hCG assay is used for the early detection ofpregnancy; it cannot be used to diagnose any conditionunrelated to . If a B-hCG level is not supportedby the clinical evidence, results should be confirmed by analternative method (qualitative urine hCG, for example). 02/27/2023 5:35 PM EST 02/27/2023 5:38 PM EST Generic External Data Provider LAB BLOOD ORDERAB LES Final Result Performing Organization Address [facility] Co de Phone Number [facility] [address] [place] [phone] * Magnesium (02/27/2023 5:35 PM EST) Pathologist [facility] Magnesium 2.0 1.6 - 2.6 mg/dL [facility] 02/27/2023 5:35 PM EST 02/27/2023 5:38 PM EST Generic External Data Provider LAB BLOOD ORDERAB LES Final Result Performing Organization Address [facility] de Phone Number [facility] [address] [place] [phone] * (ABNORMAL) Comprehensive Metabolic Panel (02/27/2023 5:35 PM EST) Sodium 140 135 - 145 mmol/L [facility] Potassium 3.9 3.3 - 5.1 mmol/L [facility] Chloride 107 96 - 108 mmol/L [facility] Carbon Dioxide 25 22 - 29 mmol/L [facility] Anion Gap 12 12 - 20 [facility] Urea Nitrogen (BUN) 20(H) 9 - 16 mg/dL [facility] Creatinine, Serum 0.87 0.5 - 1.4 mg/dL [facility] Creatinine Clr Calc Pharmacy 94.5 [facility] Comment:Provided height and weight: 157.48 cm,86.183 kg.eGFR (calculated from the MDRD study equation) and eCrCl(calculated from the Cockcroft-Gault equation) are based ondifferent parameters and may not yield comparable results.If eCrCl result is absurd, please check patient'sheight/weight. Estimated Glomerular Filt Rate >60 [facility] Comment:NOTE: For -Am erican individuals, multiply the result by 1.210.Chronic Kidney Disease: Estimated GFR < 60 mL/min/1.95d2Pllhva Kidney Disease: Estimated GFR < 15 mL/min/1.73m2 Glucose 88 60 - 115 mg/dL [facility] Calcium 9.6 8.4 - 10.2 mg/dL [facility] Bilirubin, Total 0.4 0.0 - 1.0 mg/dL [facility] Aspartate Amino Transferase 17 5 - 31 U/L [facility] Alanine Aminotransferase 7 0 - 31 U/L [facility] Total Protein 7.6 6.5 - 8.0 g/dL [facility] Albumin Level 4.4 3.5 - 5.0 g/dL [facility] Alkaline Phosphatase 60 39 - 117 U/L [facility] 02/27/2023 5:35 PM EST 02/27/2023 5:38 PM EST us Generic External Data Provider LAB BLOOD ORDERAB LES Final Result Performing Organization Address City/State/[facility] Co de Phone Number [facility] [address] [place] [phone] * Prothrombin Time-INR (02/27/2023 5:35 PM EST) Prothrombin Time 12.2 11.1 - 13.3 SEC [facility] INTERNATIONAL NORM RATIO 1.0 0.9 - 1.1 [facility] Comment:INTERNATIONAL NORMAL IZED RATIO (INR) REFERENCE RANGES Reference RangeFor patients not on anticoagulant therapy: 0.9 - 1.1INR ranges for oral anticoagulanttherapy:For prevention and treatment of venous thrombosis and pulmonary embolism: 2.0 - 3.0For acute myocardial infarction with aspirin therapy: 2.0 - 3.0For acute myocardial infarction without aspirin therapy: 3.0 - 4.0For patients with mechanical prosthetic heart valves: 2.5 - 3.5 02/27/2023 5:35 PM EST 02/27/2023 5:38 PM EST us Generic External Data Provider LAB BLOOD ORDERAB LES Final Result [facility] [address] [place] [phone] * (ABNORMAL) CBC auto differential (02/27/2023 5:35 PM EST) White Blood Count 12.3(H) 4.8 - 10.8 X10*3/uL [facility] Red Blood Count 4.62 4.20 - 5.50 X10*6/uL [facility] Hemoglobin 9.8(L) 12.0 - 16.0 g/dl [facility] Hematocrit 32.2(L) 37.0 - 47.0 % [facility] Mean Corpuscular Volume 69.7(L) 80.0 - 98.0 fL [facility] Mean Corpuscular Hemoglobin 21.2(L) 27.0 - 33.0 pg [facility] Mean Corpuscular HGB Conc 30.4(L) 31.0 - 35.0 g/dl [facility] Red Cell Distribution Width 17.7(H) 11.0 - 16.0 % [facility] Platelet Count 435(H) 160 - 400 X10*3/uL [facility] Mean Platelet Volume 10.5 9.4 - 12.3 fL [facility] Neutrophils Percent Auto 61.8 45 - 73 % [facility] Imm Gran Pct Auto 0.3 0.0 - 0.4 % [facility] Lymphocytes Percent Auto 25.9 20 - 40 % [facility] Monocytes Percent Auto 5.7 2 - 11 % [facility] Eosinophils Percent Auto 5.4(H) 0 - 4 % [facility] Basophils Percent Auto 0.9 0 - 2 % [facility] NRBC Pct Auto 0.0 0.0 - 0.2 /100WBC [facility] Neutrophils Absolute Auto 7.6 2.0 - 8.3 x10*3/uL [facility] Imm Gran Abs Auto 0.04(H) 0.00 - 0.03 X10*3/uL [facility] Lymphocytes Absolute Auto 3.2 1.2 - 4.9 X10*3/uL [facility] Monocytes Absolute Auto 0.7 0.1 - 1.2 X10*3/uL [facility] Eosinophils Absolute Auto 0.7(H) 0.0 - 0.4 X10*3/uL [facility] Basophils Absolute Auto 0.1 0.0 - 0.2 X10*3/uL [facility] NRBC Abs Auto 0.000 0.0 - 0.012 X10*3/uL [facility] 02/27/2023 5:35 PM EST 02/27/2023 5:38 PM EST us Generic External Data Provider LAB BLOOD ORDERAB LES Final Result Performing Organization Address City/State/[facility] Co de Phone Number [facility] [address] [place] [phone] documented in this encounter Visit Diagnoses Not on filedocumented in this encounter Care Teams Renewable [employer] Project Manager Relationship Specialty Start Date End Date Ave Sol MD [address] [place] [phone] PCP - General Family Medicine 04/16/18 documented as of this encounter
== END 2024-05-30 13:29 | disposition home or self-care (01) ==
LOC: HO.HMGCX 13:28
PROVIDERS: PCP Family Medicine; Visit Provider Family Medicine
DX: R10.2 Pelvic and perineal pain (principal)
CPT/HCPCS: 76830; 76856

== ENCOUNTER → 2024-05-30 13:41 | Outpatient (BNV) | payer MEDICAID, SELFPAY | PROVIDERS: PCP Family Medicine; Visit Provider Radiology Diagnostic Radiology | DX: R10.2 Pelvic and perineal pain (principal) | CPT/HCPCS: 76830; 76856 ==

== ENCOUNTER 2024-06-09 16:29 | Emergency (ER) | payer MEDICAID, SELFPAY ==
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
[2024-06-09 17:01] VITALS: BP 139/78; PULSE 74; RESP 16; TEMP 36.6; O2SAT 100; BMI 36.1
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
[2024-06-09 18:35] LABS: HCG Quantitative < 2 mIU/mL
--- NOTE | 2024-06-09 18:47 | PC.NURSE ---
pt was seen and discharged by provider in triage
--- OUTSIDE RECORDS SUMMARY | 2024-06-09 18:51 | XMS_ITS | Encounter Summary ---
Author Organization [employer] Address [address] [facility] [address] [place] [address] Care Team Providers Care Student Affairs Vice President Name Role Phone Ave Sol MD Primary Care Provider [phone] Reason for Visit * Reason Onset Date Comments Results 06/04/2024 Encounter Details Date Type Department Care Team ([facility] Contact Info) Description 06/04/2024 Telephone [facility] MEDICINE [address] [place], [place] [phone] Ave Sol MD [address] [place], [place] [phone] Results Social History Tobacco Use Types Packs/Day Years [...] encounter Miscellaneous Notes * Telephone Encounter - Shilpi Lama RN - 06/04/2024 9:52 AM EST Telephone call to pt to advise that ultrasound shows what is likely a simple cyst on the left ovaryand that Dr Sol recommends following up with repeat ultrasound in 6 weeks. Advised her that [facility] call to schedule this, similar to previous US. Pt verbalized understanding, no further questions. * Telephone Encounter - Shilpi Lama RN - 06/04/2024 9:49 AM EST ----- Message from Ave Sol MD sent at 06/03/2024 4:42 PM EST ----- Please inform patient that her US showed a cyst-like structure on left ovary, likely normal cyst. Radiologist recommends to have a follow up US, probably in 6 weeks. Thank you. documented in this encounter Plan of Treatment Not on file documented as of this encounter Visit Diagnoses Not on filedocumented in this encounter Additional Health Concerns Assessment Noted Time PHQ-9 Depression Total Score: 6 02/04/20 24 1:31 PM EDT documented as of this encounter Care Teams Student Affairs Vice President Relationship Specialty Start Date End Date Ave Sol MD [address] [place] [address] PCP - General Family Medicine 04/16/18 documented as of this encounter
--- OUTSIDE RECORDS SUMMARY | 2024-06-09 18:51 | XMS_ITS | Encounter Summary ---
Author Organization [employer] Address [address] [place] [address] [address] [place] [address] Care Team Providers Care Crop Picker Name Role Phone Ave Sol MD Primary Care Provider [phone] Reason for Visit * Reason Onset Date Comments US PELVIS/TRANSVAGINAL ORDER 06/04/2024 Encounter Details Date Type Department Care Team ([facility] st Contact Info) Description 06/04/2024 Telephone [employer] [address] [place], [place] [phone] Ave Sol MD [address] [place] [address] US PELVIS/TRANSVAGINAL ORDER Social History Tobacco Use Types Packs/Day Years [...] encounter Miscellaneous Notes * Telephone Encounter - Melanie Stacy - 06/04/2024 3:30 PM EST Incoming fax from [place], Radiology report from previous imaging did not have recommended time frame for a follow up US, please review with provider and notate on the order the time frame provider wouldlike this US performed documented in this encounter Plan of Treatment Not on file documented as of this encounter Visit Diagnoses Not on filedocumented in this encounter Additional Health Concerns Assessment Noted Time PHQ-9 Depression Total Score: 6 02/04/20 24 1:31 PM EDT documented as of this encounter Care Teams Crop Picker Relationship Specialty Start Date End Date Ave Sol MD [address] [place] [address] PCP - General Family Medicine 04/16/18 documented as of this encounter
--- OUTSIDE RECORDS SUMMARY | 2024-06-09 18:51 | XMS_ITS | Encounter Summary ---
Author Organization [employer] Address [address] [facility] [address] [place] [address] Care Team Providers Care Aluminum Sheet Cutter Name Role Phone Ave Sol MD Primary Care Provider Encounter Details Date Type Department Care Team (Late st Contact Info) Description 02/26/2024 Orders Only [facility] MEDICINE [address] [place], [place] [phone] Ave Sol MD [address] [place], [place] [phone] Anemia, unspecified type (Primary Dx); Iron deficiency [...] documented as of this encounter Care Teams Aluminum Sheet Cutter Relationship Specialty Start Date End Date Ave Sol MD [address] [place] [address] PCP - General Family Medicine 04/16/18 documented as of this encounter
--- OUTSIDE RECORDS SUMMARY | 2024-06-09 18:51 | XMS_ITS | Encounter Summary ---
Author Organization [employer] [facility] Address [address] [place] [address] [address] [place] [address] Care Team Providers Care Dry House Wheeler Name Role Phone Ave Sol MD Primary Care Provider [phone] Reason for Visit * Reason Comments Med Refill Encounter Details Date Type Department Care Team ([facility] st Contact Info) Description 01/25/2023 Refill [facility] MEDICINE [address] [place], [place] [phone] Ave Sol MD [address] [place], [place] [phone] Moderate persistent asthma without complication Social History [...] complication documented in this encounter Care Teams Dry House Wheeler Relationship Specialty Start Date End Date Ave Sol MD [address] [place], [place] [phone] PCP - General Family Medicine 04/16/18 documented as of this encounter
--- OUTSIDE RECORDS SUMMARY | 2024-06-09 18:51 | XMS_ITS | Encounter Summary ---
Author Organization [email or web address] Address [address] [address] [place] [address] Care Team Providers Care Poising Inspector Name Role Phone Ave Sol MD Primary Care Provider [phone] Encounter Details Date Type Department Care Team [...] documented as of this encounter Care Teams Poising Inspector Relationship Specialty Start Date End Date Ave Sol MD [address] [place] [address] PCP - General Family Medicine 04/16/18 documented as of this encounter
--- OUTSIDE RECORDS SUMMARY | 2024-06-09 18:51 | XMS_ITS | Encounter Summary ---
Author Organization [employer] Address [address] [facility] [address] [place] [address] Care Team Providers Care Cinder Crane Operator Name Role Phone Ave Sol MD Primary Care Provider [phone] Reason for Visit * Reason Onset Date Comments chart prep 05/21/2024 Encounter Details Date Type Department Care Team ([facility] st Contact Info) Description 05/21/2024 Telephone [facility] MEDICINE [address] [place], [place] [phone] Alana Salcedo MA chart prep Social History [...] documented as of this encounter Care Teams Cinder Crane Operator Relationship Specialty Start Date End Date Ave Sol MD [address] [place] [id number] PCP - General Family Medicine 04/16/18 documented as of this encounter
--- OUTSIDE RECORDS SUMMARY | 2024-06-09 18:51 | XMS_ITS | Encounter Summary ---
Author Organization [facility] Address [address] [place] [address] [address] [place] [address] Care Team Providers Care Senior Business Broker Name Role Phone Ave Sol MD Primary Care Provider [phone] Reason for Referral * Imaging (Routine) - Closed Specialty Diagnoses / Procedures Referred By Contac t Referred To Contact Radiology Diagnoses Pelvic pain Procedures Us Pelvis complete Ave Sol MD [address] [place] [address] Phone: tel: fax: [address] Phone: tel: fax: Referral ID Status Reason Start Date Expiration Date Visits Re quested Visits Authorized [id number] Closed 05/27/2024 05/27/2025 1 1 * Imaging (Routine) - Closed Specialty Diagnoses / Procedures Referred By Contac t Referred To Contact Radiology Diagnoses Pelvic pain Procedures US Pelvis Transvaginal Ave Sol MD [address] [place] [address] Phone: tel: fax: [address] Phone: tel: fax: Referral ID Status Reason Start Date Expiration Date Visits Re quested Visits Authorized [id number] Closed 05/27/2024 05/27/2025 1 1 * Consultation (Routine) - Authorized Specialty Diagnoses / Procedures Referred By Andrea vernon Referred To Contact Obstetrics and Gynecology Diagnoses Pelvic pain Ave Sol MD [address] [place] [address] Phone: tel: fax: [facility] [address] Phone: tel: fax: Referral ID Status Reason Start Date Expiration Date Visits Requested Visits Authorized [id number] Authorized Specialty Services Required 05/27/2024 05/27/2025 1 1 * Consultation (Routine) - Closed Specialty Diagnoses / Procedures Referred By Andrea vernon Referred To Contact Physical Therapy Diagnoses Chronic right shoulder pain Ave Sol MD [address] [place] [address] Phone: tel: fax: Physical Therapy, [facility] [address] [facility] [address] [place] Phone: tel: fax: Referral ID Status Reason Start Date Expiration Date V isits Requested Visits Authorized [id number] Closed Specialty Services Required 05/27/2024 05/27/2025 20 20 Encounter Details Date Type Department Care Team (Late st Contact Info) Description 05/26/2024 10:00 AM EST Office Visit [facility] [address] [place] [id number] [address] Sol MD [address] [place] [phone] Mild intermittent asthma without complication (Primary Dx); [...] oral iron. She was referred back to die sinking machine operator. Interval history: She sent a message regarding to abdominal pain and hip pain, requesting X-rays. She was seen by die sinking machine operator on 03/19/24. She was arranged for Venofer [...] also reports needing to find a new machine rough rounder. She last had an ultrasound when she [...] (L) 02/02/2024 The ASCVD Risk score (Vinod DK, et al., 2019) failed to calculate for [...] Vaccine (1) 12/16/2023 COVID-19 Vaccine (5 - season) 2023 Assessment/Plan Problem List Items Addressed This Visit Asthma - Primary - has been on albuterol PRN. - will switch to ICS/DAJA prn Anemia - seen by Dr. 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 Boyce, die sinking machine operator in [facility] in Feb 2024 - completed a series [...] bilateral proximal tubal occlusion. - laparoscopy in 2019 showed significant pelvic adhesions. Although it appeared [...] Type Priority Associated Diagnoses Orde r Schedule Us Pelvis complete Imaging Routine Pelvic pain [...] Procedure Name Priority Date/Time Associated Diagnosis Comments US PELVIS TRANSVAGINAL Routine 05/30/2024 1:41 PM EST Pelvic pain XR SHOULDER 2+ VIEWS RIGHT Routine 05/27/2024 8:43 AM EST Chronic right shoulder pain documented in this encounter Results * US Pelvis Transvaginal (05/30/2024 1:41 PM EST) Anatomical Region Laterality Modality Pelvis Ultrasound 05/30/2024 1:41 PM EST Narrative 05/30/2024 2:37 PM EST ? [facility] ?[facility] ? [place] [address] ? Ultrasound Report ? Signed ? Patient: Berg,Seda L ?MR#: [id number] ?? 020 ? : 1990 ?Acct:[id number] ? Age/Sex: 33 / F ?ADM Date: 02/14/25 ? Loc: HO.HMGCX ? Attending Dr: vAe Sol MD ? Ordering Physician: Ave Sol MD ?? Date of Service: 05/30/24 ?? Procedure(s): US pelvic and transvaginal ?? Accession Number(s): [id number] ? cc: Ave Sol MD ? EXAMINATION: ??US PELVIS TRANSABDOMINAL AND TRANSVAGINAL ? HISTORY: chronic pelvic pain, history of tubal infertility ? COMPARISON: Comparison is made with the prior examination dated ?? 02/18/2018. ? TECHNIQUE: ? Transabdominal and endovaginal real-time 2D frias-scale ultrasound was ?? performed. ?? Color Doppler was also performed. ? FINDINGS: ? Uterus: ??The uterus is normal in size, measuring 7.5 x 3.7 x 5.4 cm. ? Myometrium has a normal echotexture. ??No fibroids are identified. ? Endometrium: ??The endometrial stripe measures 10 mm in thickness. ? Right ovary: ??The right ovary measures 3.7 x 2.0 x 1.6 cm. ??The right ?? ovary is normal in size and echotexture. ? Left ovary: ?? The left ovary measures 4.0 x 2.5 x 2.9 cm. ??There is a ?? thick-walled cystic structure measuring 2.1 x 2.7 x 2.2 cm which may ?? represent a corpus luteum. ? Color Doppler analysis of the bilateral ovarian arteries and veins are ?? normal. ? Pelvic fluid: There is a small amount of fluid in the cul-de-sac.. ? US/US pelvic and transvaginal ?? IMPRESSION: ?? Probable 2.1 x 2.7 x 2.2 cm corpus luteum in the left ovary. Follow-up ?? is suggested to document resolution. Otherwise unremarkable pelvic ?? ultrasound. ? Electronically signed by: ??Lavell Mccann MD ??05/30/2024 02:34 PM EST ?? RP ? Dictated By: ?Lavell Mccann MD ? Signed By: ?<Electronically signed by Lavell Mccann MD in OV> ?05/30/24 1434 ? DD/ 1341 ? TD/TT: 05/30/24 1414 ? Library Media Technician: ? Procedure Note [place], Image - 05/30/2024 [facility] [place] [address] Ultrasound Report Signed Patient: Seda Berg LMR#: [id number] 020 : 1990Acct:[id number] Age/Sex: 33 / FADM Date: 05/30/24 Loc: HO.HMGCX Attending Dr: Ave Sol MD Ordering Physician: Ave Sol MD Date of Service: 05/30/24 Procedure(s): US pelvic and transvaginal Accession Number(s): [id number] cc: Ave Sol MD EXAMINATION: US PELVIS TRANSABDOMINAL AND TRANSVAGINAL HISTORY: chronic pelvic pain, history of tubal infertility COMPARISON: Comparison is made with the prior examination dated 02/18/2018. TECHNIQUE: Transabdominal and endovaginal real-time 2D firas-scale ultrasound was performed. Color Doppler was also performed. FINDINGS: Uterus: The uterus is normal in size, measuring 7.5 x 3.7 x 5.4 cm. Myometrium has a normal echotexture. No fibroids are identified. Endometrium: The endometrial stripe measures 10 mm in thickness. Right ovary: The right ovary measures 3.7 x 2.0 x 1.6 cm. The right ovary is normal in size and echotexture. Left ovary: The left ovary measures 4.0 x 2.5 x 2.9 cm. There is a thick-walled cystic structure measuring 2.1 x 2.7 x 2.2 cm which may represent a corpus luteum. Color Doppler analysis of the bilateral ovarian arteries and veins are normal. Pelvic fluid: There is a small amount of fluid in the cul-de-sac.. US/US pelvic and transvaginal IMPRESSION: Probable 2.1 x 2.7 x 2.2 cm corpus luteum in the left ovary. Follow-up is suggested to document resolution. Otherwise unremarkable pelvic ultrasound. Electronically signed by: Lavell Mccann MD 05/30/2024 02:34 PM [facility] Dictated By: Lavell Mccann MD Signed By: <Electronically signed by Lavell Mccann MD in OV> 05/30/24 1434 DD/ 1341 TD/TT: 05/30/24 1414 Library Media Technician: us Ave Sol MD IMG PROCEDURES Edited Result - Final * XR Shoulder 2+ Views Right (05/27/2024 8:43 AM EST) Anatomical Region Laterality Modality Upper Extremities, Shoulder Right Radi ographic Imaging 05/27/2024 8:43 AM EST Narrative 05/27/2024 9:21 AM EST ?[facility] ?[address] ?[place] [address] ?XRay Report ? Signed ? Patient: Berg,Seda L ?MR#: [id number] ?? 020 ? : 1990 ?Acct:[id number] ? Age/Sex: 33 / F ?ADM Date: 05/27/24 ? Loc: HO.HHCX ? Attending Dr: Ave Sol MD ? Ordering Physician: Ave Sol MD ?? Date of Service: 05/27/24 ?? Procedure(s): XR shoulder RT min 2V ?? Accession Number(s): [id number] ? cc: Ave Sol MD ? EXAMINATION: [...] DD/ 0843 ? TD/TT: 05/27/24 0900 ? Library Media Technician: ? Procedure Note Donotdarrylinterpreter, Image - 05/27/[address] [address] XRay Report Signed Patient: Seda Berg LMR#: [id number] 020 : 1990Acct:[id number] Age/Sex: 33 / FADM Date: 05/27/24 [facility]: Ave Sol MD Ordering Physician: Ave Sol MD Date of Service: 05/27/24 Procedure(s): XR shoulder RT min 2V Accession Number(s): [id number] cc: Ave Sol MD EXAMINATION: XR SHOULDER, [...] Dereje Bustamante MD 05/27/2024 09:19 AM EST Dictated By: Dereje Bustamante MD Signed By: <Electronically signed by Dereje Bustamante MD in OV> 05/27/24918 DD/ 2 TD/TT: 05/27/24899 Library Media Technician: Ave Sol MD IMG XR PROCEDURES Final [...] documented as of this encounter Care Teams Senior Business Broker Relationship Specialty Start Date End Date Ave Sol MD [address] [place] [address] PCP - General Family Medicine 04/16/18 documented as of this encounter
--- OUTSIDE RECORDS SUMMARY | 2024-06-09 18:51 | XMS_ITS | Encounter Summary ---
Author Organization [facility] Address [address] [facility] [address] [place] [address] Care Team Providers Care Bottom Saw Operator Name Role Phone Ave Sol MD Primary Care Provider [phone] Encounter Details Date Type Department Care Team (Late st Contact Info) Description 06/09/2024 Orders Only GENERIC EXTERNAL DATA DEPARTMENT Provider, Generic External Data Social History Tobacco Use Types Packs/Day Years [...] Procedure Name Priority Date/Time Associated Diagnosis Comments HCG, TOTAL, QN Routine 06/09/2024 6:08 PM EST documented in this encounter Results * hCG, Total, Quantitative (06/09/2024 6:08 PM EST) HCG Quantitative <2 mIU/mL [facility] Comment:Weeks post LMP Appro ximate hCG(Last Menstrual Period) Range (mIU/ml)3 - 4 weeks 9 - 1304 - 5 weeks 75 - 2,6005 - 6 weeks 850 - 20,8006 - 7 weeks 4000 - 100,2007 - 12 weeks 11,500 - 289,62793 - 16 weeks 18,300 - 137,61307 - 29 weeks (2nd trimester) 1,400 - 53,54623 - 41 weeks (3rd trimester) 940 - 60,000The Simpson B- hCG assay is used for the early detection ofpregnancy; it cannot be used to diagnose any conditionunrelated to . If a B-hCG level is not supportedby the clinical evidence, results should be confirmed by analternative method (qualitative urine hCG, for example). 06/09/2024 6:08 PM EST 06/09/2024 6:10 PM EST us Generic External Data Provider LAB BLOOD ORDERAB LES Final Result [facility] [address] [place] [phone] documented in this encounter Visit Diagnoses Not on filedocumented in this encounter Additional Health Concerns Assessment Noted Time PHQ-9 Depression Total Score: 6 02/04/20 24 1:31 PM EDT documented as of this encounter Care Teams Bottom Saw Operator Relationship Specialty Start Date End Date Ave Sol MD [address] [place] [address] PCP - General Family Medicine 04/16/18 documented as of this encounter
--- OUTSIDE RECORDS SUMMARY | 2024-06-09 18:51 | XMS_ITS | Encounter Summary ---
Author Organization [employer] Address [address] [facility] [address] [place] [address] Care Team Providers Care Hydrocrane Operator Name Role Phone Ave Sol MD Primary Care Provider [phone] Encounter Details Date Type Department Care Team (Late st Contact Info) Description 06/16/2022 Orders Only [facility] [address] [place] [address] Caroline Villalta LPN Social History Tobacco Use [...] 6:48 PM EST 03/11/2023 6:48 PM EST Comment:[facility] - 03/13/2023 10:21 AM EST Urine Culture Report Result Urine Culture 10,000 to 50,000 cfu/ml Urine Culture Mixed bacterial krystina characteristic of Urine Culture urogenital contamination. Specimen Source: Urine clean catch Generic External Data Provider LAB MICROBIOLOGY - GENERAL ORDERABLES Final Result Performing Organization Address City/[facility]/ZIP Co de Phone Number [facility] [address] [place] [address] [phone] * (ABNORMAL) Urinalysis, Complete, with Reflex to Culture (03/11/2023 6:02 PM EST) Color Urine Yellow [facility] Appearance Urine Cloudy [facility] PH 7.5 5.0 - 9.0 [facility] Glucose Urine UA Negative Negative mg/dL [facility] Urine Blood Large (3+)(A) Negative [facility] Specific [place] - Urine >=1.030(H) 1.005 - 1.025 [facility] Urine Protein Negative Neg-Trace mg/dL [facility] Urine Ketones Negative Negative mg/dL [facility] Nitrite Urine Negative Negative [facility] Leukocyte Esterase Urine Negative Negative [facility] RBC Urine 11-20(A) 0 - 2 /HPF [facility] Urine WBC 6-10(A) 0 - 5 /HPF [facility] Urine Squamous Epithelial Cell 3-5 0 - 2 /HPF [facility] Urine Bacteria None Seen None Seen [facility] Hyaline Casts, Urine 0-2 0 - 2 /LPF [facility] 03/11/2023 6:02 PM EST 03/11/2023 6:12 PM EST Narrative [facility] - 03/11/2023 6:27 PM EST Urine, Clean Catch Generic External Data Provider LAB URINE ORDERAB LES Final Result Performing Organization Address [facility]/ZIP Co de Phone Number [facility] [address] [place] [phone] * HCG, Qualitative, Urine (03/11/2023 6:02 PM EST) Urine NEGATIVE NEGATIVE [facility] Comment:This test was develo ped to detect early . Falsenegative results may occur after the 5th - 7th week ofpregnancy when using this test method. If clinicallyindicated, consider a serum hCG. 03/11/2023 6:02 PM EST 03/11/2023 6:12 PM EST Generic External Data Provider LAB URINE ORDERAB LES Final Result Performing Organization Address [facility] Phone Number [facility] [address] [place] [phone] * High Sensitivity Troponin I (03/11/2023 5:57 PM EST) Pathologist [facility] TROPONIN I HIGH SENSITIVITY <2.7 <3.5 - 17.0 ng/L [facility] Comment:The Gambino high sens itivity Troponin-I results should beused in conjunction with other diagnostic information suchas ECG, clinical observations and information, and patientsymptoms to aid in the diagnosis of IL. 03/11/2023 5:57 PM EST 03/11/2023 6:01 PM EST Generic External Data Provider LAB BLOOD ORDERAB LES Final Result Performing Organization Address [facility] Number [facility] [address] [place] [phone] * Magnesium (03/11/2023 5:57 PM EST) Magnesium 2.2 1.6 - 2.6 mg/dL [facility] 03/11/2023 5:57 PM EST 03/11/2023 6:01 PM EST Generic External Data Provider LAB BLOOD ORDERAB LES Final Result Performing Organization Address [facility] Phone Number [facility] [address] [place] [phone] * (ABNORMAL) Basic Metabolic Panel (03/11/2023 5:57 PM EST) Sodium 138 135 - 145 mmol/L [facility] Potassium 4.3 3.3 - 5.1 mmol/L [facility] Chloride 108 96 - 108 mmol/L [facility] Carbon Dioxide 24 22 - 29 mmol/L [facility] Anion Gap 10(L) 12 - 20 [facility] Urea Nitrogen (BUN) 19(H) 9 - 16 mg/dL [facility] Creatinine, Serum 0.88 0.5 - 1.4 mg/dL [facility] Creatinine Clr Calc Pharmacy 93.8 [facility] Comment:Provided height and weight: 157.48 cm,86.636 kg.eGFR (calculated from the MDRD study equation) and eCrCl(calculated from the Cockcroft-Gault equation) are based ondifferent parameters and may not yield comparable results.If eCrCl result is absurd, please check patient'sheight/weight. Estimated Glomerular Filt Rate >60 [facility] Comment:NOTE: For -Am erican individuals, multiply the result by 1.210.Chronic Kidney Disease: Estimated GFR < 60 mL/min/1.22c5Wnlziy Kidney Disease: Estimated GFR < 15 mL/min/1.73m2 Glucose 94 60 - 115 mg/dL [facility] Calcium 9.1 8.4 - 10.2 mg/dL [facility] 03/11/2023 5:57 PM EST 03/11/2023 6:01 PM EST us Generic External Data Provider LAB BLOOD ORDERAB LES Final Result [facility] [address] [place] [phone] [phone] * Hepatic Function Panel (03/11/2023 5:57 PM EST) Pathologist [facility] Bilirubin, Total 0.3 0.0 - 1.0 mg/dL [facility] Bilirubin, Direct 0.1 0.0 - 0.5 mg/dL [facility] Aspartate Amino Transferase 13 5 - 31 U/L [facility] Alanine Aminotransferase 9 0 - 31 U/L [facility] Total Protein 7.1 6.5 - 8.0 g/dL [facility] Albumin Level 4.1 3.5 - 5.0 g/dL [facility] Alkaline Phosphatase 57 39 - 117 U/L [facility] 03/11/2023 5:57 PM EST 03/11/2023 6:01 PM EST Generic External Data Provider LAB BLOOD ORDERAB LES Final Result Performing Organization Address [facility] Co de Phone Number [facility] [address] [place] [phone] * Influenza A B2 ID NOW (Gambino) (03/11/2023 5:57 PM EST) IDNOW SERIAL# [id number] [facility] Influenza A Negative Negative [facility] Influenza B2 Negative Negative [facility] Influenza A B2 Note See Note [facility] Comment:The Gambino ID NOW In [...] GENERAL ORDERABLES Final Result Performing Organization Address [facility]/ZIP Co de Phone Number [facility] [address] [place] [phone] * COVID-19 ID NOW (GAMBINO) (03/11/2023 5:57 PM EST) IDNOW SERIAL# [id number] [facility] COVID-19 TEST Negative Negative [facility] COVID-19 NOTE See Note [facility] Comment: Results are for the identification of SARS-CoV2 RNA. TheSARS-CoV2 RNA is generally detectable in respiratory samplesduring the acute phase of infection. Positive results areindicative of the presence of SARS-CoV-2 RNA; clinicalcorrelation with patient history and other diagnosticinformation is necessary to determine patient infectionstatus. Positive results do not rule out bacterial infectionor co- infection with other viruses.Testing facilities within the [facility] and itswhite hospitalritories are required to report all positive results [...] use by authorized laboratories.Testing performed on the [employer] NOW utilizing NAAT. 03/11/2023 5:57 PM EST 03/11/2023 6:01 PM EST us Generic External Data Provider LAB [facility] ORDERABLES Final Result [facility] [address] [place] [phone] * (ABNORMAL) CBC auto differential (03/11/2023 5:57 PM EST) White Blood Count 12.6(H) 4.8 - 10.8 X10*3/uL [facility] Red Blood Count 4.30 4.20 - 5.50 X10*6/uL [facility] Hemoglobin 8.9(L) 12.0 - 16.0 g/dl [facility] Hematocrit 30.3(L) 37.0 - 47.0 % [facility] Mean Corpuscular Volume 70.5(L) 80.0 - 98.0 fL [facility] Mean Corpuscular Hemoglobin 20.7(L) 27.0 - 33.0 pg [facility] Mean Corpuscular HGB Conc 29.4(L) 31.0 - 35.0 g/dl [facility] Red Cell Distribution Width 18.2(H) 11.0 - 16.0 % [facility] Platelet Count 429(H) 160 - 400 X10*3/uL [facility] Mean Platelet Volume 10.1 9.4 - 12.3 fL [facility] Neutrophils Percent Auto 63.3 45 - 73 % [facility] Imm Gran Pct Auto 0.4 0.0 - 0.4 % [facility] Lymphocytes Percent Auto 25.2 20 - 40 % [facility] Monocytes Percent Auto 5.1 2 - 11 % [facility] Eosinophils Percent Auto 5.2(H) 0 - 4 % [facility] Basophils Percent Auto 0.8 0 - 2 % [facility] NRBC Pct Auto 0.0 0.0 - 0.2 /100WBC [facility] Neutrophils Absolute Auto 8.0 2.0 - 8.3 x10*3/uL [facility] Imm Gran Abs Auto 0.05(H) 0.00 - 0.03 X10*3/uL [facility] Lymphocytes Absolute Auto 3.2 1.2 - 4.9 X10*3/uL [facility] Monocytes Absolute Auto 0.6 0.1 - 1.2 X10*3/uL [facility] Eosinophils Absolute Auto 0.7(H) 0.0 - 0.4 X10*3/uL [facility] Basophils Absolute Auto 0.1 0.0 - 0.2 X10*3/uL [facility] NRBC Abs Auto 0.000 0.0 - 0.012 X10*3/uL [facility] 03/11/2023 5:57 PM EST 03/11/2023 6:01 PM EST us Generic External Data Provider LAB BLOOD ORDERAB LES Final Result Performing Organization Address City/[facility]/ZIP Co de Phone Number [facility] [address] [place] [phone] * Culture, Urine, Routine (02/27/2023 7:07 PM EST) Urine Urine specimen obtained by clean catch procedure / Unknown 02/27/2023 7:07 PM EST 02/27/2023 7:07 PM EST Comment:UACC Narrative [facility] - 03/01/2023 9:07 AM EST Urine Culture Report Result Urine Culture 10,000 to 50,000 cfu/ml Urine Culture Mixed bacterial krystina characteristic of Urine Culture urogenital contamination. Specimen Source: Urine clean catch Generic External Data Provider LAB MICROBIOLOGY - GENERAL ORDERABLES Final Result Performing Organization Address [facility] Co de Phone Number [facility] [address] [place] [phone] * (ABNORMAL) Urinalysis, Complete, with Reflex to Culture (02/27/2023 6:28 PM EST) Color Urine Yellow [facility] Appearance Urine Clear [facility] PH 6.5 5.0 - 9.0 [facility] Glucose Urine UA Negative Negative mg/dL [facility] Urine Blood Negative Negative [facility] Specific [place] - Urine >=1.030(H) 1.005 - 1.025 [facility] Urine Protein Negative Neg-Trace mg/dL [facility] Urine Ketones Negative Negative mg/dL [facility] Nitrite Urine Negative Negative [facility] Leukocyte Esterase Urine Small (1+)(A) Negative [facility] RBC Urine 0-2 0 - 2 /HPF [facility] Urine WBC 11-20(A) 0 - 5 /HPF [facility] Urine Squamous Epithelial Cell 6-10 0 - 2 /HPF [facility] Urine Bacteria Trace None Seen [facility] Hyaline Casts, Urine 0-2 0 - 2 /LPF [facility] 02/27/2023 6:28 PM EST 02/27/2023 6:30 PM EST Narrative [facility] - 02/27/2023 6:38 PM EST [id number], Clean Catch Generic External Data Provider LAB URINE ORDERAB LES Final Result Performing Organization Address [facility] Co de Phone Number [facility] [address] [place] [phone] * High Sensitivity Troponin I (02/27/2023 5:35 PM EST) [facility] TROPONIN I HIGH SENSITIVITY <2.7 <3.5 - 17.0 ng/L [facility] Comment:The Gambino high sens itivity Troponin-I results should beused in conjunction with other diagnostic information suchas ECG, clinical observations and information, and patientsymptoms to aid in the diagnosis of IL. 02/27/2023 5:35 PM EST 02/27/2023 5:38 PM EST Generic External Data Provider LAB BLOOD ORDERAB LES Final Result Performing Organization Address [facility] Number [facility] [address] [place] [phone] * hCG, Total, Quantitative (02/27/2023 5:35 PM EST) Pathologist [facility] HCG Quantitative <2 mIU/mL [facility] Comment:Weeks post LMP Appro ximate hCG(Last Menstrual Period) Range (mIU/ml)3 - 4 weeks 9 - 1304 - 5 weeks 75 - 2,6005 - 6 weeks 850 - 20,8006 - 7 weeks 4000 - 100,2007 - 12 weeks 11,500 - 289,71879 - 16 weeks 18,300 - 137,65121 - 29 weeks (2nd trimester) 1,400 - 53,50318 - 41 weeks (3rd trimester) 940 - [...] ORDERAB LES Final Result Performing Organization Address [facility] Co de Phone Number [facility] [address] [place] [phone] * Magnesium (02/27/2023 5:35 PM EST) Pathologist [facility] Magnesium 2.0 1.6 - 2.6 mg/dL [facility] 02/27/2023 5:35 PM EST 02/27/2023 5:38 PM EST Generic External Data Provider LAB BLOOD ORDERAB LES Final Result Performing Organization Address [facility] de Phone Number [facility] [address] [place] [phone] * (ABNORMAL) Comprehensive Metabolic Panel (02/27/2023 5:35 PM EST) Sodium 140 135 - 145 mmol/L [facility] Potassium 3.9 3.3 - 5.1 mmol/L [facility] Chloride 107 96 - 108 mmol/L [facility] Carbon Dioxide 25 22 - 29 mmol/L [facility] Anion Gap 12 12 - 20 [facility] Urea Nitrogen (BUN) 20(H) 9 - 16 mg/dL [facility] Creatinine, Serum 0.87 0.5 - 1.4 mg/dL [facility] Creatinine Clr Calc Pharmacy 94.5 [facility] Comment:Provided height and weight: 157.48 cm,86.183 kg.eGFR (calculated from the MDRD study equation) and eCrCl(calculated from the Cockcroft-Gault equation) are based ondifferent parameters and may not yield comparable results.If eCrCl result is absurd, please check patient'sheight/weight. Estimated Glomerular Filt Rate >60 [facility] Comment:NOTE: For -Am erican individuals, multiply the result by 1.210.Chronic Kidney Disease: Estimated GFR < 60 mL/min/1.89g0Lygxje Kidney Disease: Estimated GFR < 15 mL/min/1.73m2 Glucose 88 60 - 115 mg/dL [facility] Calcium 9.6 8.4 - 10.2 mg/dL [facility] Bilirubin, Total 0.4 0.0 - 1.0 mg/dL [facility] Aspartate Amino Transferase 17 5 - 31 U/L [facility] Alanine Aminotransferase 7 0 - 31 U/L [facility] Total Protein 7.6 6.5 - 8.0 g/dL [facility] Albumin Level 4.4 3.5 - 5.0 g/dL [facility] Alkaline Phosphatase 60 39 - 117 U/L [facility] 02/27/2023 5:35 PM EST 02/27/2023 5:38 PM EST us Generic External Data Provider LAB BLOOD ORDERAB LES Final Result Performing Organization Address City/State/[facility] Co de Phone Number [facility] [address] [place] [phone] * Prothrombin Time-INR (02/27/2023 5:35 PM EST) Prothrombin Time 12.2 11.1 - 13.3 SEC [facility] INTERNATIONAL NORM RATIO 1.0 0.9 - 1.1 [facility] Comment:INTERNATIONAL NORMAL IZED RATIO (INR) [...] Provider LAB BLOOD ORDERAB LES Final Result [facility] [address] [place] [phone] * (ABNORMAL) CBC auto differential (02/27/2023 5:35 PM EST) White Blood Count 12.3(H) 4.8 - 10.8 X10*3/uL [facility] Red Blood Count 4.62 4.20 - 5.50 X10*6/uL [facility] Hemoglobin 9.8(L) 12.0 - 16.0 g/dl [facility] Hematocrit 32.2(L) 37.0 - 47.0 % [facility] Mean Corpuscular Volume 69.7(L) 80.0 - 98.0 fL [facility] Mean Corpuscular Hemoglobin 21.2(L) 27.0 - 33.0 pg [facility] Mean Corpuscular HGB Conc 30.4(L) 31.0 - 35.0 g/dl [facility] Red Cell Distribution Width 17.7(H) 11.0 - 16.0 % [facility] Platelet Count 435(H) 160 - 400 X10*3/uL [facility] Mean Platelet Volume 10.5 9.4 - 12.3 fL [facility] Neutrophils Percent Auto 61.8 45 - 73 % [facility] Imm Gran Pct Auto 0.3 0.0 - 0.4 % [facility] Lymphocytes Percent Auto 25.9 20 - 40 % [facility] Monocytes Percent Auto 5.7 2 - 11 % [facility] Eosinophils Percent Auto 5.4(H) 0 - 4 % [facility] Basophils Percent Auto 0.9 0 - 2 % [facility] NRBC Pct Auto 0.0 0.0 - 0.2 /100WBC [facility] Neutrophils Absolute Auto 7.6 2.0 - 8.3 x10*3/uL [facility] Imm Gran Abs Auto 0.04(H) 0.00 - 0.03 X10*3/uL [facility] Lymphocytes Absolute Auto 3.2 1.2 - 4.9 X10*3/uL [facility] Monocytes Absolute Auto 0.7 0.1 - 1.2 X10*3/uL [facility] Eosinophils Absolute Auto 0.7(H) 0.0 - 0.4 X10*3/uL [facility] Basophils Absolute Auto 0.1 0.0 - 0.2 X10*3/uL [facility] NRBC Abs Auto 0.000 0.0 - 0.012 X10*3/uL [facility] 02/27/2023 5:35 PM EST 02/27/2023 5:38 PM EST us Generic External Data Provider LAB BLOOD ORDERAB LES Final Result Performing Organization Address City/State/[facility] Co de Phone Number [facility] [address] [place] [phone] documented in this encounter Visit Diagnoses Not on filedocumented in this encounter Care Teams Hydrocrane Operator Relationship Specialty Start Date End Date Ave Sol MD [address] [place] [phone] PCP - General Family Medicine 04/16/18 documented as of this encounter
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
--- OUTSIDE RECORDS SUMMARY | 2024-06-09 18:51 | XMS_ITS | Encounter Summary ---
Author Organization [facility] Address [address] [place] [address] 7t [place] [address] Care Team Providers Care Horticultural Specialty Grower Inside Name Role Phone Ave Sol MD Primary Care Provider [phone] Reason for Referral * Imaging (Routine) - Authorized Specialty Diagnoses / Procedures Referred By Contac t Referred To Contact Radiology Diagnoses Corpus luteum cyst of left ovary Procedures US Pelvis Transvaginal Ave Sol MD [address] [place] [address] Phone: tel: fax: [address] Phone: tel: fax: Referral ID Status Reason Start Date Expiration Date V isits Requested Visits Authorized [id number] Authorized 06/03/2024 06/03/2025 1 1 * Imaging (Routine) - Authorized Specialty Diagnoses / Procedures Referred By Contac t Referred To Contact Radiology Diagnoses Corpus luteum cyst of left ovary Procedures Us Pelvis complete Ave Sol MD [address] [place] [address] Phone: tel: fax: [address] Phone: tel: fax: Referral ID Status Reason Start Date Expiration Date V isits Requested Visits Authorized [id number] Authorized 06/03/2024 06/03/2025 1 1 Encounter Details Date Type Department Care Team (Late st Contact Info) Description 06/03/2024 Orders Only [facility] MED[facility]INE [address] [place] [address] Ave Sol MD [address] [place], [place] [phone] Corpus luteum cyst of left ovary (Primary Dx) Social History Tobacco Use Types Packs/Day Years [...] r Schedule Us Pelvis complete Imaging Routine Corpus luteum cyst of left ovary Expected: 07/11/2024, Expires: 06/03/2025 US Pelvis Transvaginal Imaging Routine Corpus luteum cyst of left ovary Expected: 07/11/2024, Expires: 06/03/2025 documented as of this encounter Procedures Procedure Name Priority Date/Time Associated Diagnosis Comments XR CHEST 2 VIEWS Routine 06/09/2024 6:[address] CERVICAL SPINE WO CONTRAST Routine 06/09/2024 6:[address] HEAD WO CONTRAST Routine 06/09/2024 6 :10 PM EST documented in this encounter Results * XR Chest 2 Views (06/09/2024 6:24 PM EST) Anatomical Region Laterality Modality Chest Radiographic Celine ging 06/09/2024 6:24 PM EST Narrative 06/09/2024 6:25 PM EST ? [facility] ?[address] ?[place] [address] ?XRay Report ? Signed ? Patient: Berg,Seda L ?MR#: [id number] ?? 020 ? : 1990 ?Acct:[id number] ? Age/Sex: 33 / F ?ADM Date: 06/09/24 ? Loc: HO.ED ? Attending Dr: ? Ordering Physician: Lorrie Jasso ?? Date of Service: 06/09/24 ?? Procedure(s): XR chest 2V ?? Accession Number(s): [id number] ? cc: Lorrie Jasso; Ave Sol MD [...] by Bryan Garcia MD in OV> ? 06/09/241824 ? DD/ 23 ? TD/TT: 06/09/241823 ? Mobile Security Specialist: ? Procedure Note Donnanciter, Image - 06/09/[address] [address] XRay Report Signed Patient: eSda Berg LMR#: [id number] 020 : 1990Acct:[id number] Age/Sex: 33 / FADM Date: 06/09/24 Loc: HO.ED Attending Dr: Ordering Physician: Lorrie Jasso Date of Service: 06/09/24 Procedure(s): XR chest 2V Accession Number(s): [id number] cc: Lorrie Jasso; Ave Sol MD CLINICAL [...] in OV> 06/09/241824 DD/ 23 TD/TT: 06/09/241823 Mobile Security Specialist: [facility] External Provider IMG XR PROCEDURES Final Result * CT Cervical Spine w/o Contrast (06/09/2024 6:11 PM EST) Anatomical Region Laterality Modality Spine, C-spine Computed Tomogra phy 06/09/2024 6:11 PM EST Narrative 06/09/2024 6:12 PM EST ? [facility] ?[address] ?[place] [address] ? CT Scan Report ? Signed ? Patient: Berg,Seda L ?MR#: [id number] ?? 020 ? : 1990 ?Acct:[id number] ? Age/Sex: 33 / F ?ADM Date: 06/09/24 ? Loc: HO.ED ? Attending Dr: ? Ordering Physician: Lorrie Jasso ?? Date of Service: 06/09/24 ?? Procedure(s): CT cervical spine wo IV con ?? Accession Number(s): [id number] ? cc: Lorrie Jasso; Ave Sol MD ? Report Number: ?? [id number]: Total DLP = 1243.00 mGy-cm ? CLINICAL [...] DD/ 1811 ? TD/TT: 06/09/24 1811 ? Mobile Security Specialist: ? Procedure Note Mary Kate - 06/09/[address] [address] [address] Scan Report Signed Patient: Seda Berg LMR#: [id number] 020 : 1990Acct:[id number] Age/Sex: 33 / FADM Date: 06/09/24 Loc: HO.ED Attending Dr: Ordering Physician: Lorrie Jasso Date of Service: 06/09/24 Procedure(s): CT cervical spine wo IV con Accession Number(s): [id number] cc: Lorrie Jasso; Ave Sol MD Report Number: [id number]: Total DLP = 1243.00 mGy-cm CLINICAL HISTORY: [...] in OV> 06/09/241810 DD/ 10 TD/TT: 06/09/241810 Mobile Security Specialist: [facility] External Provider IMG CT PROCEDURES Final Result * CT Head w/o Contrast (06/09/2024 6:10 PM EST) Anatomical Region Laterality Modality Head, Neck Computed Tomogra phy 06/09/2024 6:10 PM EST Narrative 06/09/2024 6:11 PM EST ? [facility] ?[address] ?[place] [address] ? CT Scan Report ? Signed ? Patient: Berg,Seda L ?MR#: [id number] ?? 020 ? : 1990 ?Acct:[id number] ? Age/Sex: 33 / F ?ADM Date: 06/09/24 ? Loc: HO.ED ? Attending Dr: ? Ordering Physician: Lorrie Jasso ?? Date of Service: 06/09/24 ?? Procedure(s): CT head/brain wo IV con ?? Accession Number(s): [id number] ? cc: Lorrie Jasso; Ave Sol MD ? Report Number: ?? [id number]: Total DLP = ?0.00 mGy-cm ? CLINICAL [...] MD in OV> ? 06/09/240 ? DD/ ? TD/TT: 06/09/241809 ? Mobile Security Specialist: ? Procedure Note Donkatie, Image - 06/09/[address] [place] [address] [address] Scan Report Signed Patient: Seda Berg LMR#: [id number] 020 : 1990Acct:[id number] Age/Sex: 33 / FADM Date: 06/09/24 Loc: HO.ED Attending Dr: Ordering Physician: Lorrie Jasso Date of Service: 06/09/24 Procedure(s): CT head/brain wo IV con Accession Number(s): [id number] cc: Lorrie Jasso; Ave Sol MD Report Number: [id number]: Total DLP = 0.00 mGy-cm CLINICAL HISTORY: [...] in OV> 06/09/241809 DD/ 09 TD/TT: 06/09/241809 Mobile Security Specialist: us [place] [facility] External Provider IMG CT PROCEDURES Final Result documented in this encounter Visit Diagnoses Diagnosis Corpus luteum cyst of left ovary- Primary documented in this encounter Additional Health Concerns Assessment Noted Time PHQ-9 Depression Total Score: 6 02/04/20 24 1:31 PM EDT documented as of this encounter Care Teams Horticultural Specialty Grower Inside Relationship Specialty Start Date End Date Ave Sol MD [address] [place] [address] PCP - General Family Medicine 04/16/18 documented as of this encounter
--- OUTSIDE RECORDS SUMMARY | 2024-06-09 18:51 | XMS_ITS | Encounter Summary ---
Author Organization [employer] Address [address] [facility] 7t [place] [address] Care Team Providers Care Gift Wrapper Name Role Phone Ave Sol MD Primary Care Provider [phone] Reason for Visit * Reason Onset Date Comments Nurse Triage 09/13/2023 Encounter Details Date Type Department Care Team ([facility] st Contact Info) Description 09/13/2023 Telephone [facility] MEDICINE [address] [place], [place] [phone] Ave Sol MD [address] [place], [place] [phone] Nurse Triage Social History Tobacco Use Types [...] accepted this outcome Please contact pt at [phone] documented in this encounter Plan of Treatment Not on file documented as of this encounter Visit Diagnoses Not on filedocumented in this encounter Care Teams Gift Wrapper Relationship Specialty Start Date End Date Ave Sol MD [address] [place] [address] PCP - General Family Medicine 04/16/18 documented as of this encounter
== END 2024-06-09 18:49 | disposition home or self-care (01) ==
PROVIDERS: Physician Assistant Medical; Emergency Provider Emergency Medicine; PCP Family Medicine
DX: S06.0X0A Concussion without loss of consciousness, initial encounter (principal); M54.2 Cervicalgia; R51.9 Headache, unspecified; R07.89 Other chest pain; R11.0 Nausea; V43.52XA Car driver injured in collision with other type car in traffic accident, initial encounter; Y93.89 Activity, other specified; Y92.488 Other paved roadways as the place of occurrence of the external cause; Y99.8 Other external cause status
CPT/HCPCS: 36415; 70450; 71046; 72125; 84702; 99281; 99284

== ENCOUNTER → 2024-06-09 17:04 | Outpatient (BNV) | payer OTHER, SELFPAY | PROVIDERS: Emergency Provider Emergency Medicine; PCP Family Medicine; Visit Provider Radiology Vascular & Interventional Radiology | DX: R07.89 Other chest pain (principal); S09.90XA Unspecified injury of head, initial encounter; V89.2XXA Person injured in unspecified motor-vehicle accident, traffic, initial encounter | CPT/HCPCS: 70450; 71046; 72125 ==

== ENCOUNTER 2024-11-07 08:43 | Outpatient (REF) | payer MEDICAID, SELFPAY ==
--- OUTSIDE RECORDS SUMMARY | 2024-11-07 08:53 | XMS_ITS | Encounter Summary ---
Author Organization [employer] Address [address] [facility] [address] 7t [place] [address] Care Team Providers Care Track Sweeper Name Role Phone Ave Sol MD Primary Care Provider [phone] Encounter Details Date Type Department Care Team (Late st Contact Info) Description 02/26/2024 Orders Only [facility] MEDICINE [address] [place], [place] [phone] Ave Sol MD [address] [place], [place] [phone] Anemia, unspecified type (Primary Dx); Iron deficiency Social History Tobacco Use Types Packs/Day Years Used Date Smoking Tobacco: Former Cigarettes 0.3 14.6 S tarted: 2010 Smokeless Tobacco: Never Alcohol [...] Priority Associated Diagnoses Orde r Schedule Helicobacter pylori Antigen, EIA, Stool Lab Routine Anemia, unspecified type Iron deficiency Expected: 02/26/2024 (Approximate), Expires: 02/25/2025 documented as of this encounter Visit Diagnoses Diagnosis Anemia, unspecified type- Primary Iron deficiency Disorders of iron metabolism documented in this encounter Additional Health Concerns Assessment Noted Time PHQ-9 Depression Total Score: 6 02/04/20 24 1:31 PM EDT documented as of this encounter Care Teams Track Sweeper Relationship Specialty Start Date End Date Ave Sol MD [address] [place] [address] PCP - General Family Medicine 04/16/18 documented as of this encounter
[2024-11-07 11:18] LABS: MANUAL DIFF FLAG NO
[2024-11-07 11:27] LABS: Hematocrit 35.3 % (37.0-47.0); Hemoglobin 11.1 g/dl (12.0-16.0); Imm Gran Abs Auto 0.05 X10*3/uL (0.00-0.03); Imm Gran Pct Auto 0.5 % (0.0-0.4); Lymphocytes Absolute Auto 2.4 X10*3/uL (1.2-4.9); Mean Corpuscular HGB Conc 31.4 g/dl (31.0-35.0); Mean Corpuscular Hemoglobin 26.4 pg (27.0-33.0); Mean Corpuscular Volume 84.0 fL (80.0-98.0); NRBC Abs Auto 0.000 X10*3/uL (0.0-0.012); NRBC Pct Auto 0.0 /100WBC (0.0-0.2); Platelet Count 347 X10*3/uL (160-400); Red Blood Count 4.20 X10*6/uL (4.20-5.50); Reticulocytes Absolute 0.083 X10*6/uL (0.026-0.095); White Blood Count 9.3 X10*3/uL (4.8-10.8)
[2024-11-07 12:04] LABS: Iron 26 mcg/dL (30-160); Percent Iron Saturation 10 % (15-50); Total Iron Binding Capacity 260 mcg/dL (228-428); Unsaturated Iron Binding 234 ug/dL
[2024-11-07 12:20] LABS: HBS Num1 > 1000.00 mIU/mL (0-7.99); HBc Num1 0.08 S/CO (0.00-0.79); HBsAGNum1 0.35 S/CO (0.00-0.99); HIV Num 1 0.04 S/CO (0.00-0.99); Hepatitis B Surface Antigen Negative (Negative); ~HepC Num1 0.11 S/CO (0.00-0.79); ~Hepatitis B Surface Antibody REACTIVE (Nonreactive); ~Hepatitis C Antibody Nonreactive (Nonreactive)
[2024-11-07 12:24] LABS: Ferritin 25 ng/mL (10-122)
[2024-11-07 12:36] LABS: Folate 7.0 ng/mL (> or = 4.0); Vitamin B12 495 pg/mL (200-900)
== END 2024-11-07 08:44 | disposition home or self-care (01) ==
LOC: HO.HHCL 08:43
PROVIDERS: PCP Family Medicine; Visit Provider Family Medicine
DX: Z11.3 Encounter for screening for infections with a predominantly sexual mode of transmission (principal); Z11.59 Encounter for screening for other viral diseases; Z11.4 Encounter for screening for human immunodeficiency virus [HIV]; D64.9 Anemia, unspecified; E55.9 Vitamin D deficiency, unspecified
CPT/HCPCS: 36415; 82306; 82607; 82728; 82746; 83540; 85025; 85045; 86704; 86706; 86803; 87340; 87389

== ENCOUNTER 2025-04-15 10:21 | Outpatient (REF) | payer MEDICAID, SELFPAY ==
--- NOTE | ~2025-04-15 | XR_ITS ---
EXAMINATION: XR CHEST 2 VIEWS HISTORY: chest pain COMPARISON: Comparison is made with the prior examination dated 06/09/2024. FINDINGS: PA and lateral views of the chest are submitted. The lungs are expanded and clear. There is no pleural effusion, pneumothorax, or pulmonary vascular congestion. The heart is normal in size. The bones are intact. XR/XR chest 2V IMPRESSION: No acute cardiopulmonary abnormality. Electronically signed by: Lavell Mccann MD 04/15/2025 11:01 AM NATACHA
--- OUTSIDE RECORDS SUMMARY | 2025-04-15 09:00 | XMS_ITS | Encounter Summary ---
Author Organization [employer] Address [address] [place] [address] 7 [place] [address] Care Team Providers Care Chief Technology Officer Name Role Phone Ave Sol MD Primary Care Provider [phone] Encounter Details Date Type Department Care Team ([facility] st Contact Info) Description 04/15/2025 9:00 AM EST Office Visit [facility] MEDICINE [address] [place], [place] [phone] Gina Zuniga, NADIA [address] [place], [place] [phone] Chest pain, unspecified type (Primary Dx); Iron deficiency anemia, unspecified iron deficiency anemia type Social History Tobacco Use Types Packs/Day Years Used Date Smoking Tobacco: Every Day Cigarettes 0.3 15 Started: 2010 Passive Smoke Exposure: Current Smokeless Tobacco: Never Tobacco Cessation:Ready to Q [...] housing situation today? I have jignesh albrecht 11/06/[address] you li ve. Do you have problems with any of the following? None of the above 11/06/2024 Food Insecurity Answer Date Recorded Within the [...] Sign Reading Time Taken Comments Blood Pressure 118/66 04/15/2025 9:04 AM EST Pulse 88 04/15/2025 9:04 AM EST Temperature 36.4 C (97.6 F) 04/15/2025 9:04 AM EST Respiratory Rate 16 04/15/2025 9:04 AM EST Oxygen Saturation 98% 04/15/2025 9:04 AM EST Inhaled Oxygen Concentration - - Weight 97.6 kg (215 lb 2 oz) 04/15/2025 9:04 AM EST Height 160 cm (5' 3 ) 04/15/2025 9:04 AM EST Body Mass Index 38.11 04/15/2025 9:04 AM EST documented in this encounter Miscellaneous Notes * Assessment & Plan Note - Gina Zuniga NP - 04/15/2025 9:00 AM ESTAssociated Problem(s): Anemia - Anemia and low vitamin D previously identified; ongoing symptoms may be related to these deficiencies. - Prescribed iron pills and vitamin D supplementation. Orders: cholecalciferol (Vitamin D-3) 25 MCG (1000 UT) tablet; Take 1 tablet (25 mcg) by mouth Once per day. ferrous sulfate (Fe Tabs) 325 (65 Fe) MG EC tablet; Take 1 tablet (325 mg) by mouth with breakfast.Do not crush, chew, or split. documented in this encounter Plan of Treatment Upcoming Encounters Date Type Department Care Team (Late st Contact Info) Description 05/11/2025 1:15 PM EST Office Visit [facility] MEDICINE [address] [place], [place] [phone] Ave Sol MD [address] [place], [place] [phone] documented as of this encounter Procedures Procedure Name Priority Date/Time Associated Diagnosis Comments ECG 12-LEAD Routine 04/15/2025 11:09 AM EST Chest pain, unspecified type XR CHEST 2 VIEWS Routine 04/15/2025 10:3 7 AM EST Chest pain, unspecified type documented in this encounter Results * ECG 12 lead (04/15/2025 11:09 AM EST) Narrative Gina Zuniga NP - 04/15/2025 11:09 AM EST Normal Sinus Rhythm, HR 74 bpm, normal QT, no ST elevation Gina Zuniga NP ECG ORDERABLES Final Result * XR Chest 2 Views (04/15/2025 10:37 AM EST) Anatomical Region Laterality Modality Chest Radiographic Celine ging 04/15/2025 10:3 7 AM EST Narrative 04/15/2025 11:03 AM EST [facility] [address] [place] [address] XRay Report Signed Patient: Seda Berg MR#: [id number] 020 : 1990 Acct:[id number] Age/Sex: 34 / F ADM Date: 04/15/25 [facility] Att[facility] Dr: Gina Zuniga NP Ordering Physician: Gina Zuniga NP Date of Service: 04/15/25 Procedure(s): XR chest 2V Accession Number(s): [id number] cc: Gina Zuniga NP Reason for Exam: chest pain EXAMINATION: XR CHEST 2 VIEWS HISTORY: chest pain COMPARISON: Comparison is made with the prior examination dated 06/09/2024. FINDINGS: PA and lateral views of the chest are submitted. The lungs are expanded and clear. There is no pleural effusion, pneumothorax, or pulmonary vascular congestion. The heart is normal in size. The bones are intact. XR/XR chest 2V IMPRESSION: No acute cardiopulmonary abnormality. Electronically signed by: Lavell Mccann MD 04/15/2025 11:01 AM EST RP Dictated By: Lavell Mccann MD Signed By: <Electronically signed by Lavell Mccann MD in OV> 04/15/25 1101 DD/ 1037 TD/TT: 04/15/25 1038 Workers Compensation Claims Supervisor: Procedure Note Donotuseinterpreter, Image - 04/15/[address] [address] XRay Report Signed Patient: Seda Berg LMR#: [id number] 020 : 1990Acct:[id number] Age/Sex: 34 / FADM Date: 04/15/25 Loc: HO.[facility]X Attending Dr: Gina Zuniga NP Ordering Physician: Gina Zuniga NP Date of Service: 04/15/25 Procedure(s): XR chest 2V Accession Number(s): [id number] cc: Gina Zuniga NP Reason for Exam: chest pain EXAMINATION: XR CHEST 2 VIEWS HISTORY: chest pain COMPARISON: Comparison is made with the prior examination dated 06/09/2024. FINDINGS: PA and lateral views of the chest are submitted. The lungs are expanded and clear. There is no pleural effusion, pneumothorax, or pulmonary vascular congestion. The heart is normal in size. The bones are intact. XR/XR chest 2V IMPRESSION: No acute cardiopulmonary abnormality. Electronically signed by: Lavell Mccann MD 04/15/2025 11:01 AM EST RP Dictated By: Lavell Mccann MD Signed By: <Electronically signed by Lavell Mccann MD in OV> 04/15/25 1101 DD/ 1037 TD/TT: 04/15/25 1038 Workers Compensation Claims Supervisor: Gina Zuniga WORKERS COMPENSATION MANAGER IMG XR PROCEDURES Final Result documented in this encounter Visit Diagnoses Diagnosis Chest pain, unspecified type- Primary Iron deficiency anemia, unspecified iron deficiency anemia type documented in this encounter Additional Health Concerns Assessment Noted Time PHQ-9 Depression Total Score: 6 02/04/20 24 1:31 PM EDT documented as of this encounter Care Teams Chief Technology Officer Relationship Specialty Start Date End Date Ave Sol MD [address] [place] [address] PCP - General Family Medicine 04/16/18 documented as of this encounter
--- OUTSIDE RECORDS SUMMARY | 2025-04-15 11:27 | XMS_ITS | Encounter Summary ---
Author Organization [email or web address] Address [address] [facility] [address] [facility] [address] 7t [place] [address] Care Team Providers Care Auto Detailer Name Role Phone Ave Sol MD Primary Care Provider [phone] Encounter Details Date Type Department Care Team (Late st Contact Info) Description 11/07/2024 Orders Only [facility] MEDICINE [address] [place], [place] [phone] Ave Sol MD [address] [place], [place] [phone] Social History Tobacco Use Types Packs/Day Years Used Date Smoking Tobacco: Every Day Cigarettes 0.3 15 Started: 2010 Smokeless Tobacco: Never Alcohol Use [...] as of this encounter Plan of Treatment Upcoming Encounters Date Type Department Care Team (Late st Contact Info) Description 05/11/2025 1:15 PM EST Office Visit [facility] MEDICINE [address] [place] [address] Ave Sol MD [address] [place] [address] documented as of this encounter Visit Diagnoses Not on filedocumented in this encounter Additional Health Concerns Assessment Noted Time PHQ-9 Depression Total Score: 6 02/04/20 24 1:31 PM EDT documented as of this encounter Care Teams Auto Detailer Relationship Specialty Start Date End Date Ave Sol MD [address] [place] [address] PCP - General Family Medicine 04/16/18 documented as of this encounter
--- OUTSIDE RECORDS SUMMARY | 2025-04-15 11:27 | XMS_ITS | Encounter Summary ---
Author Organization [employer] Address [address] [facility] [address] [facility] [address] 7t [place] [address] Care Team Providers Care Supervisor Heading Name Role Phone Ave Sol MD Primary Care Provider [phone] Reason for Visit * Reason Comments Med Refill Encounter Details Date Type Department Care Team ([facility] st Contact Info) Description 03/16/2025 Refill [facility] MEDICINE [address] [place], [place] [phone] Ave Sol MD [address] [place], [place] [phone] Social History Tobacco Use Types Packs/Day Years [...] Description 05/11/2025 1:15 PM EST Office Visit [facility] MEDICINE [address] [place] [address] [address] [address] Sol MD [address] [place] [address] documented as of this encounter Visit Diagnoses Not on filedocumented in this encounter Additional Health Concerns Assessment Noted Time PHQ-9 Depression Total Score: 6 02/04/20 24 1:31 PM EDT documented as of this encounter Care Teams Supervisor Heading Relationship Specialty Start Date End Date Ave Sol MD [address] [place] [address] PCP - General Family Medicine 04/16/18 documented as of this encounter
--- OUTSIDE RECORDS SUMMARY | 2025-04-15 11:27 | XMS_ITS | Clinical Summary ---
Author Organization [employer] Address [address] [place] [address] Care Team Providers Care Weapons Specialist Name Role Phone Ave Sol MD Primary Care Provider [phone] Allergies No known active allergies Medications * This document contains information received from the source organization and may not represent a complete record from that organization. nicotine (Nicoderm CQ) 7 MG/24HR patch Place 1 patch on the skin 1 (one) time each day at the same time. 30 patch 1 05/26/19 25 Active budesonide-form oterol (Symbicort) 80-4.5 MCG/ACT inhaler 2 puffs twice a day, and may use additional 1-2 puffs every 4 hours as needed for wheezing. Rinse mouth with water after use to reduce aftertaste and incidence of candidiasis. 1 each 11 05/27/19 25 Active albuterol (2.5 MG/3ML) 0.083% nebulizer solutionIndicat ions:Moderate persistent asthma without complication USE 1 AMPULE USING A NEBULIZER EVERY 4 HOURS NEEDED FOR ASTHMA. NO MORE THAN FOUR TIMES DAILY 90 mL 1 07/03/19 25 Active docusate sodium (Colace) 100 MG capsule TAKE 1 CAPSULE BY MOUTH TWICE DAILY 180 capsule 3 08/19/19 25 Active Diclofenac Sodium 1 % gel Apply topically to shoulder or painful areas twice a day as needed for pain 350 g 1 11/07/19 25 Active albuterol (Ventolin HFA) 108 (90 Base) MCG/ACT inhalerIndicati ons:Wheezing INHALE 2 PUFFS BY MOUTH EVERY 4 TO 6 HOURS NEEDED FOR WHEEZING OR SHORTNESS OF BREATH 18 g 3 5 2:20 PM EST 02/25/20 25 Active naproxen (Naprosyn) 500 MG tabletIndicatio ns:Chest pain, unspecified type Take 1 tablet by mouth twice daily as needed for pain 60 tablet 1 04/15/20 25 Active cholecalciferol (Vitamin D-3) 25 MCG (1000 UT) tabletIndicatio ns:Iron deficiency anemia, unspecified iron deficiency anemia type Take 1 tablet (25 mcg) by mouth Once per day. 90 tablet 3 04/15/20 25 Active ferrous sulfate (Fe Tabs) 325 (65 Fe) MG EC tabletIndicatio ns:Iron deficiency anemia, unspecified iron deficiency anemia type Take 1 tablet (325 mg) by mouth with breakfast. Do not crush, chew, or split. 30 tablet 11 04/15/20 25 026 Active naproxen (Naprosyn) 500 MG tablet Take 1 tablet by mouth twice daily as needed for pain 60 tablet 1 11/07/19 25 025 Discontinued(R eorder (will not trigger notification to Pharmacy)) cholecalciferol (Vitamin D-3) 25 MCG (1000 UT) tablet Take 1 tablet (25 mcg) by mouth Once per day. 90 tablet 3 11/08/19 25 025 Discontinued(R eorder (will not trigger notification to Pharmacy)) Active Problems Problem Noted Date Diagnosed Date Moderate episode of recurren t major depressive disorder (CMS/[facility]) 11/10/2024 Assessment & Plan (11/10/2024 4:51 AM EDT): - Differential Dx: Depression or adjustment disorder - History of depression - patient dislikes medication - patient agrees to be referred to integrated behavioral health service Tubal infertility in female 05/27/2024 Assessment & Plan (05/27/2024 7:23 AM EST): - followed by [facility] service - She conceived her daughter with a frozen embryo transfer cycle when 1 blastocyst was transferred. The protocol was with estradiol and intramuscular progesterone. Her daughter was delivered on 03/24/2021. - She tried another IVF in 2022, and had a miscarriage at 9 weeks Vitamin D deficiency 05/27/2024 Assessment & Plan (11/10/2024 4:44 AM EDT): - continue vitamin d supplementation - continue adequate dietary intake Assessment & Plan (05/27/2024 7:29 AM EST): - continue vitamin d supplementation - continue adequate dietary intake and outdoor activity with safe amount of sun exposure Constipation 05/26/2024 Assessment & Plan (05/27/2024 7:12 AM EST): - continue adequate fiber intake and water intake - will try docusate Chronic right shoulder pain 05/26/2024 Fatigue 02/04/2024 Assessment & Plan (11/10/2024 4:48 AM EDT): - multifactorial, mainly iron deficiency anemia - Hx iron infusion - following with hay farmer Assessment & Plan (02/04/2024 8:59 PM EDT): [...] Tobacco dependence syndrome 04/12/2015 Assessment & Plan (11/10/2024 4:48 AM EDT): -smoking approx. 3-4 cigarettes/day -encouraged cessation. -prescribed NRT with patch in [id number] Assessment & Plan (05/27/2024 7:15 AM EST): -smoking approx. 3-4 cigarettes/day -encouraged cessation. -will try NRT with patch Assessment & Plan (02/04/2024 8:57 PM EDT): -smoking approx. 3 cigarettes/day -encouraged cessation. Allergic rhinitis 01/27/2013 Asthma 01/27/2013 Assessment & Plan (11/10/2024 4:46 AM EDT): - had been on albuterol PRN. - switched to SMART with budesonide / formoterol (Symbicort) Assessment & Plan (05/27/2024 7:12 AM EST): - has been on albuterol PRN. - will switch to ICS/DAJA prn Assessment & Plan (02/04/2024 8:55 PM EDT): Controlled. -continue Ventolin and albuterol PRN. Anemia 01/27/2013 Assessment & Plan (04/15/2025 11:13 AM EST): - Anemia and low vitamin D previously identified; ongoing symptoms may be related to these deficiencies. - Prescribed iron pills and vitamin D supplementation. Orders: cholecalciferol (Vitamin D-3) 25 MCG (1000 UT) tablet; Take 1 tablet (25 mcg) by mouth Once per day. ferrous sulfate (Fe Tabs) 325 (65 Fe) MG EC tablet; Take 1 tablet (325 mg) by mouth with breakfast. Do not crush, chew, or split. Assessment & Plan (11/07/2024 8:35 PM EDT): - seen [place] Dr. Boyce, hay farmer [place] [facility] [place] Feb 2024 - completed a series of iron infusion / Venofer - continue periodic lab - encouraged adequate dietary iron intake Assessment & Plan (05/27/2024 7:15 AM EST): - seen by Dr. Boyce, hay farmer in [facility] in Feb 2024 - completed a series of iron infusion / Venofer - continue periodic lab - encouraged adequate dietary iron intake Assessment & Plan (02/04/2024 8:57 PM EDT): Hgb in ER was 9.4. Reports fatigue. -strongly advised pt to return to ER for transfusion -prescribed ferrous gluconate (Fergon) 324 (38 Fe) MG tablet Encounters Date Type Department Care Team Description 04/15/2025 9:00 AM EST Office Visit [facility] [address] [address] Gina Zuniga NP Chest pain, unspecified type (Primary Dx); Iron deficiency anemia, unspecified iron deficiency anemia type 04/15/2025 Travel 04/14/[address] [address] Gina Zuniga NP Chart Prep 04/13/[address] [address] [address] Sol MD Nurse Triage 03/16/2025 Refill [facility] [address] [place] [address] Ave Sol MD 03/16/2025 Telephone [facility] [address] [place], [place] [phone] Ave Sol MD Medication Question 02/23/2025 Refill [facility] [address] [place], [place] [phone] Ave Sol MD Wheezing from Last 3 Months Immunizations Immunization Administration Dates Next Due Influenza injectable quadriv [...] Mass Index 38.11 04/15/2025 9:04 AM EST Plan of Treatment Upcoming Encounters Date Type Department Care Team (Late st Contact Info) Description 05/11/2025 1:15 PM EST Office Visit [facility] [address] [place] [address] Ave Sol MD [address] [place] [address] Health Maintenance Due Date Last Done Comments Alcohol/Substance Use Screening 2002 Family Planning (PISQ) 2005 HPV Vaccines (1 - 3-dose series) 2005 Pneumococcal Vaccine: Pediatrics (0 to 5 Years) and At-Risk Patients (6 to 49) Years (2 of 2 - PCV) 01/27/2014 01/27/2013 COVID-19 Vaccine ( - season) 2024 03/03/2022, 12/10/2021, 06/12/2021, Additional history exists Influenza Vaccine (#1) 2024 2, 07/07/2021, 02/13/2018, Additional history exists Depression Screening 02/03/2025 02/04/2024, 02/04/20 24 Disability Screening 11/06/2025 11/06/2024 SDOH Screening 11/06/2025 11/06/2024 Tobacco Screening 04/15/2026 04/15/2025 Pap Smear 02/07/2027 02/08/2024, 02/04/2024 Cervical Cancer Screening 02/03/2029 HPV/Cotest 02/03/2029 02/04/2024 Lipid Panel 02/03/2029 02/04/2024 DTaP/Tdap/Td Vaccines (3 - Td or Tdap) 12/24/2030 12/24/2020, 01/27/2013 Zoster Vaccines (1 of 2) 2040 RSV Patients and Patients Aged 60 years or older (1 - 1-dose 75+ series) 2065 HIV Screening Completed 11/07/2024 Hepatitis C Screening Completed 11/07/2024 HIB Vaccines Aged Out No longer eligi ble based on patient's age to complete this topic Hepatitis A Vaccines Aged Out No long er eligible based on patient's age to complete this topic Hepatitis B Vaccines Discontinued IPV Vaccines Aged Out No longer eligi ble based on patient's age to complete this topic Meningococcal B Vaccine Aged Out No l onger eligible based on patient's age to complete [...] 7 AM EST Chest pain, unspecified type HEPATITIS C AB W/REFL TO HCV RNA, QN, PCR Routine 11/07/2024 9:03 AM EDT Routine screening for STI (sexually transmitted infection) HIV 1/2 ANTIGEN/ANTIBODY, FOURTH GENERATION W/RFL Routine 11/07/2024 9:03 AM EDT Routine screening for STI (sexually transmitted infection) LIPID PANEL WITH REFLEX TO DIRECT LDL Routine 02/04/2024 2:40 PM EDT Screening for lipid disorders THINPREP IMAGING PAP AND HPV MRNA E6/E7 Routine 02/04/2024 2:24 PM EDT from Last 3 Months or Most Recently Relevant to Health Maintenance Results * ECG 12 lead (04/15/2025 11:09 AM EST) Narrative Gina Zuniga NP - 04/15/2025 11:09 AM EST Normal Sinus Rhythm, HR 74 bpm, normal QT, no ST elevation us Gina Zuniga NP ECG ORDERABLES Final Result * XR Chest 2 Views (04/15/2025 10:37 AM EST) Anatomical Region Laterality Modality Chest Radiographic Celine ging 04/15/2025 10:3 7 AM EST Narrative 04/15/2025 11:03 AM EST [address] [address] XRay Report Signed Patient: Seda Berg MR#: [id number] : 1990 Acct:[id number] Age/Sex: 34 / F ADM Date: 04/15/25 Loc: HO.HHCX Attending Dr: Gina Zuniga NP Ordering Physician: Gina Zuniga NP Date of Service: 04/15/25 Procedure(s): XR chest 2V Accession Number(s): [id number] cc: Gina Zuniga NP Reason for Exam: [...] 04/15/25 1101 DD/ 1037 TD/TT: 04/15/25 1038 Polymer Specialist: Procedure Note Donotuseinterpreter, Image - 04/15/[address] [address] XRay Report Signed Patient: Seda Berg LMR#: [id number] : 1990Acct:[id number] Age/Sex: 34 / FADM Date: 04/15/25 Loc: HO.HHCX Attending Dr: Gina Zuniga NP Ordering Physician: Gina Zuniga NP Date of Service: 04/15/25 Procedure(s): XR chest 2V Accession Number(s): [id number] cc: Gina Zuniga NP Reason for Exam: [...] 04/15/25 1101 DD/ 1037 TD/TT: 04/15/25 1038 Polymer Specialist: us Gina Zuniga NP IMG XR PROCEDURES Final Result * Hepatitis C Antibody with Reflex to HCV, RNA, Quantitative, Real-Time PCR (11/07/2024 9:03 AM EDT) [facility] Hepatitis C Antibody Nonreactive Nonreactive [facility] Comment:Antibodies to HCV no t detected; does not exclude early acuteHCV infection. Blood Venous blood specimen / Unknown 11/07/2024 9:03 AM EDT 11/07/2024 11:[address] Sol MD LAB BLOOD ORDERABLES Final Resul t Performing Organization Address [facility]/ZIP Co de Phone Number [facility] [address] [place] [phone] * HIV-1/2 Antigen and Antibodies, Fourth Generation, with Reflexes (11/07/2024 9:03 AM EDT) [facility] HIV AB/AG Nonreactive Nonreactive [facility] Comment:HIV-1 p24 Ag and/or HIV-1/HIV-2 Ab not detected.A test result that is nonreactive does not exclude thepossibility of exposure to or infection with HIV-1 and/orHIV-2. Nonreactive results in this assay for individualswith prior exposure to HIV-1 and/or HIV-2 may be due toantigen and antibody levels that are below the limit ofdetection of this assay.The [employer] HIV Ag/Ab Combo assay result andsupplemental assay results should be interpreted inconjunction with the patient's clinical presentation,history and other laboratory results. If the results areinconsistent with clinical evidence, additional testing issuggested to confirm the result. Blood Venous blood specimen / Unknown 11/07/2024 9:03 AM EDT 11/07/2024 11:[address] Sol MD LAB BLOOD ORDERABLES Final Resul t Performing Organization Address City/[facility]/ZIP Co de Phone Number [facility] [address] [place] [phone] * (ABNORMAL) Lipid Panel with Reflex to Direct LDL (02/04/2024 2:40 PM EDT) Triglycerides 186(H) <150 mg/dL [facility] Comment:Desirable Triglyceri de: less than 150 mg/dLBorderline High Triglyceride 150-199 mg/dLHigh Triglyceride: 200-499 mg/dLVery High Triglyceride: greater than or equal to 5OO mg/dL Cholesterol 199 <200 mg/dL [facility] Comment:Desirable Cholestero l: less than 200 mg/dLBorderline High Cholesterol: 200-239 mg/dLHigh Cholesterol: greater than 239 mg/dL LDL Cholesterol Calculated 120(H) <100 mg/dL [facility] Comment:Desirable LDL: less than 100 mg/dLNear Optimal/Above Optimal LDL: 110- 129 mg/dLBorderline High LDL: 130-159 mg/dLHigh LDL: 160-189 mg/dLVery High LDL: greater than or equal to 190 mg/dL HDL Cholesterol 42 >40 mg/dL [facility] Comment:Desirable HDL: great er than 40 mg/dL Note: This HDL assay may give artificially low results in patients with liver disease. Blood 02/04/2024 2:40 PM EDT 02/04/2024 4:[address] Sol MD LAB BLOOD ORDERABLES Final Resul t [facility] [address] [place] [phone] * ThinPrep Imaging Pap and HPV mRNA E6/E7 (02/04/2024 2:24 PM EDT) HPV nRNA E6/E7 Not Detected Not Detected [facility] Comment:Methodology: Transcr iption-Mediated AmplificationThis assay detects E6/E7 viral messenger RNA (mRNA) from 14high-risk HPV types (16,18,31,33,35,39,45,51,52,56,58,59,66,68).Cervical sources are required for HPV testing.If a vaginal source from a patient who has had atotal hysterectomy with removal of cervix wassubmitted, please contact the testing laboratoryfor alternative testing options.For additional information, please refer [email or web address].Struq/faq/XIW401t7(This link if provided for information/educational purposes only.)THIS TEST WAS PERFORMED AT:[employer] [address] [id number] SARGENT MD SOURCE: SEE NOTE [facility] Comment:Cervix Report Status: [facility] Clinical Information: SEE NOTE [facility] Comment:NEGATIVE EMB IN 2020 LMP: SEE NOTE [facility] Comment:01/21/24 Prev. PAP: SEE NOTE [facility] Comment:NONE GIVEN Prev. BX: SEE NOTE [facility] Comment:NONE GIVEN Statement Of Adequacy: SEE NOTE [facility] Comment:Satisfactory for teo luation.Endocervical/transformation zone componentpresent. General Categorization: [facility] Interpretation/Result: SEE NOTE [facility] Comment:Cytology Results: Ne gative for intraepitheliallesion or malignancy. Cytology Comment SEE NOTE [facility] Comment:This Pap test has be en evaluated with computerassisted technology. Lead Nurse: SEE NOTE [facility] Comment:RMM, CT(ASCP)CT scre ening location: [address] [address] Review Lead Nurse: [facility] Pathologist [facility] PAP Infection [facility] See Note SEE [facility] Comment:EXPLANATORY NOTE:The Pap is a screening test for cervical cancer. It isnot a diagnostic test and is subject to false negativeand false positive results. It is most reliable when asatisfactory sample, regularly obtained, is submittedwith relevant clinical findings and history, and whenthe Pap result is evaluated along with historic andcurrent clinical information. 02/04/2024 2:24 PM EDT 02/04/2024 5:35 PM EDT Narrative [facility] - 02/07/2024 10:49 AM EDT SEE SCANNED RESULTS IN E[place]GATIVE EMB [place] [id number] Ave Sol MD LAB PATHOLOGY ORDERABLES Final R esult [facility] [address] [place] [phone] from Last 3 Months or Most Recently Relevant to Health Maintenance Insurance [employer] C[employer] Care Teams Weapons Specialist Relationship Specialty Start Date End Date Ave Sol MD [address] [place] [phone] PCP - General Family Medicine 04/16/18
--- OUTSIDE RECORDS SUMMARY | 2025-04-15 11:27 | XMS_ITS | Encounter Summary ---
Author Organization [employer] Address [address] [place] [address] Care Team Providers Care Seaming Inspector Name Role Phone Ave Sol MD Primary Care Provider [phone] Encounter Details Date Type Department Care Team (Late st Contact Info) Description 11/07/2024 Orders Only [facility] [address] [place], [place] [phone] Ave Sol MD [address] [place], [place] [phone] Social History Tobacco Use Types Packs/Day Years [...] Description 05/11/2025 1:15 PM EST Office Visit [facility] [address] [place] [address] Ave Sol MD [address] [place] [address] documented as of this encounter Visit Diagnoses Not on filedocumented in this encounter Additional Health Concerns Assessment Noted Time PHQ-9 Depression Total Score: 6 02/04/20 24 1:31 PM EDT documented as of this encounter Care Teams Seaming Inspector Relationship Specialty Start Date End Date Ave Sol MD [address] [place] [phone] PCP - General Family Medicine 04/16/18 documented as of this encounter
--- OUTSIDE RECORDS SUMMARY | 2025-04-15 11:27 | XMS_ITS | Encounter Summary ---
Author Organization [employer] Address [address] [place] [address] Care Team Providers Care Sap Ppm Consultant Name Role Phone Ave Sol MD Primary Care Provider [phone] Encounter Details Date Type Department Care Team (Late st Contact Info) Description 02/26/2024 Orders Only [facility] [address] [place], [place] [phone] Ave Sol MD [address] [place], [place] [phone] Anemia, unspecified type (Primary Dx); Iron deficiency Social History Tobacco Use Types Packs/Day Years Used Date Smoking Tobacco: Former Cigarettes 0.3 15 S tarted: 2010 Smokeless Tobacco: Never Alcohol [...] Description 05/11/2025 1:15 PM EST Office Visit [facility] [address] [place] [address] [address] [address] Sol MD [address] [place] [phone] Scheduled Orders Name Type Priority Associated Diagnoses [...] documented as of this encounter Care Teams Sap Ppm Consultant Relationship Specialty Start Date End Date Ave Sol MD [address] [place] [phone] PCP - General Family Medicine 04/16/18 documented as of this encounter
--- OUTSIDE RECORDS SUMMARY | 2025-04-15 11:27 | XMS_ITS | Encounter Summary ---
Author Organization [employer] Address [address] [place] [address] Care Team Providers Care Milk Receiver Tank Truck Name Role Phone Ave Sol MD Primary Care Provider [phone] Encounter Details Date Type Department Care Team (Latest Contact Info) Description 04/15/2025 Travel Social History Tobacco Use Types Packs/Day Years Used Date Smoking Tobacco: Every Day Cigarettes 0.3 15 Started: 2010 Passive Smoke Exposure: Current Smokeless Tobacco: Never Alcohol Use Standard Drinks/Week [...] Description 05/11/2025 1:15 PM EST Office Visit [facility] [address] [place] [address] [address] Sol MD [address] [place] [phone] documented as of this encounter Visit Diagnoses Not on filedocumented in this encounter Additional Health Concerns Assessment Noted Time PHQ-9 Depression Total Score: 6 02/04/20 24 1:31 PM EDT documented as of this encounter Care Teams Milk Receiver Tank Truck Relationship Specialty Start Date End Date Ave Sol MD [address] [place] [phone] PCP - General Family Medicine 04/16/18 documented as of this encounter
--- OUTSIDE RECORDS SUMMARY | 2025-04-15 11:27 | XMS_ITS | Encounter Summary ---
Author Organization [employer] Address [address] [place] [address] Care Team Providers Care Onyx Chip Terrazzo Worker Name Role Phone Ave Sol MD Primary Care Provider [phone] Reason for Visit * Reason Onset Date Comments Nurse Triage 04/13/2025 Encounter Details Date Type Department Care Team ([facility] st Contact Info) Description 04/13/2025 Telephone [facility] [address] [place], [place] [phone] Ave Sol MD [address] [place], [place] [phone] Nurse Triage Social History Tobacco Use Types [...] encounter Miscellaneous Notes * Telephone Encounter - Marina Charles RN - 04/14/2025 10:19 AM EST Return call placed to the pt to follow up on pt triage call from yesterday in which the pt reportedintermittent left sided chest pain. The pt was advised to present to the ED and the pt confirms that she did go but left around 8 PM as the wait was too long. The pt does continue to endorse some left sided chest and arm discomfort. Pain rated around a 2/10 and the pt feels that it was improved since yesterday. Pt denies any SOB, STEWART, dizziness or palpitations. The pt [facility] Blue Team provider. Pt given return ED advisement and was agreeable to this plan. * Telephone Encounter - Perla Nickerson RN - 04/13/2025 11:54 AM EST TC placed to pt for triage. Pt reports they have been experiencing intermittent left sides chest pressure and left shoulder pain for the last couple of weeks. Pt reports the pain comes and goes and when they have it, it lasts approximately 1-2 minutes. Pt reports it is not a sharp chest pain and ismore like chest pressure. Pt reports associated arm numbness with this pressure. Pt denies SOB, headache, blurry vision, dizziness, fever, chills. Pt reports they are having the discomfort at time ofcall. Pt speaking to nurse in complete sentences. Pt advised to seek ED evaluation now. Pt reports they will go to [facility] ED now. Advised pt to contact office upon discharge. Message forwarded to PCP team for follow up. Protocol Used: Chest Pain (Adult) Protocol-Based Disposition: Go to ED/C Now (or to Office Now per Policy) Positive Triage Question: * Chest pain or angina comes and goes and is happening more often (increasing in frequency) or getting worse (increasing in severity) (Exception: Chest pains that last only a few seconds.) * All higher-acuity triage questions were negative. Care Advice Discussed: * Reasons To Call Back - Chest pain increases in frequency, duration or severity - Chest pain lasts over 5 minutes - Chest pains persist over 3 days - Difficulty breathing or unusual sweating occurs - Fever over 100.4 F (38.0 C) - You become worse * Telephone Encounter - Juan Carlos Myrick - 04/13/2025 11:08 AM EST Symptom: Chest Pain - Adult Outcome: Transfer to a nurse or provider NOW! Reason: Heaviness on chest The caller accepted this outcome. Contact pt at [phone] documented in this encounter Plan of Treatment Upcoming Encounters Date Type Department Care Team (Late st Contact Info) Description 05/11/2025 1:15 PM EST Office Visit [facility] [address] [place] [address] [address] Sol MD [address] [place] [address] documented as of this encounter Visit Diagnoses Not on filedocumented in this encounter Additional Health Concerns Assessment Noted Time PHQ-9 Depression Total Score: 6 02/04/20 24 1:31 PM EDT documented as of this encounter Care Teams Onyx Chip Terrazzo Worker Relationship Specialty Start Date End Date Ave Sol MD [address] [place] [address] PCP - General Family Medicine 04/16/18 documented as of this encounter
--- OUTSIDE RECORDS SUMMARY | 2025-04-15 11:27 | XMS_ITS | Encounter Summary ---
Author Organization [employer] Address [address] [place] [address] 7 [place] [address] Care Team Providers Care Straw Boss Name Role Phone Ave Sol MD Primary Care Provider Reason for Visit * Reason Onset Date Comments Chart Prep 04/14/2025 Encounter Details Date Type Department Care Team ([facility] st Contact Info) Description 04/14/2025 Telephone [facility] [address] [place], [place] [phone] Gina Zuniga, NADIA [address] [place] [address] Chart Prep Social History Tobacco Use Types Packs/Day Years [...] encounter Miscellaneous Notes * Telephone Encounter - Ursula Rosen MA - 04/14/2025 3:06 PM EST Chart Prep Labs: done Images: not applicable Referrals: not applicable Vaccines due: Covid, Flu, PCV20, and HPV Screenings: LMP Overdue care gaps: SBIRT, PHQ-9, LUCERO-7, and Tobacco documented in this encounter Plan of Treatment Upcoming Encounters Date Type Department Care Team (Late st Contact Info) Description 05/11/2025 1:15 PM EST Office Visit [facility] [address] [place] [address] Ave Sol MD [address] [place] [address] documented as of this encounter Visit Diagnoses Not on filedocumented in this encounter Additional Health Concerns Assessment Noted Time PHQ-9 Depression Total Score: 6 02/04/20 24 1:31 PM EDT documented as of this encounter Care Teams Straw Boss Relationship Specialty Start Date End Date Ave Sol MD [address] [place] [phone] PCP - General Family Medicine 04/16/18 documented as of this encounter
--- OUTSIDE RECORDS SUMMARY | 2025-04-15 11:28 | XMS_ITS | Encounter Summary ---
Author Organization [employer] [facility] Address [address] [facility] 7t [place] [address] Care Team Providers Care Engine Research Engineer Name Role Phone Ave Sol MD Primary Care Provider [phone] Reason for Visit * Reason Comments Med Refill Encounter Details Date Type Department Care Team (Late Contact Info) Description 01/25/2023 Refill [facility]INE [address] [place] [phone] Sol MD [address] [place] [address] [phone] Moderate persistent asthma without complication Social History [...] Encounters Date Type Department Care Team (Late Contact Info) Description 05/11/2025 1:15 PM EST Office Visit [facility] [address] [place] [phone] Sol MD [address] [place] [address] [phone] documented as of this encounter Visit Diagnoses Diagnosis Moderate persistent asthma without complication documented in this encounter Care Teams Engine Research Engineer Relationship Specialty Start Date End Date Ave Sol MD [address] [place] [phone] PCP - General Family Medicine 04/16/18 documented as of this encounter
--- OUTSIDE RECORDS SUMMARY | 2025-04-15 11:28 | XMS_ITS | Encounter Summary ---
Author Organization [employer] Address [address] [facility] [address] 7t [place] [address] Care Team Providers Care Cna Caregiver Name Role Phone Ave Sol MD Primary Care Provider [phone] Reason for Visit * Reason Onset Date Comments Nurse Triage 09/13/2023 Encounter Details Date Type Department Care Team ([facility] st Contact Info) Description 09/13/2023 Telephone [facility] [address] [place], [place] [phone] Ave Sol MD [address] [place], [place] [phone] Nurse Triage Social History Tobacco Use Types [...] in Epic. * Telephone Encounter - Elly Salcedo - 09/13/2023 1:03 PM EDT Symptom: Hip Pain - Not From Injury Outcome: Schedule an urgent appointment (within 1 hour) or talk to a nurse or provider soon Reason: Severe pain now The caller accepted this outcome Please contact pt at [phone] documented in this encounter Plan of Treatment Upcoming Encounters Date Type Department Care Team (Late st Contact Info) Description 05/11/2025 1:15 PM EST Office Visit [facility] [address] [place] [address] [phone] [address] Sol MD [address] [place] [phone] documented as of this encounter Visit Diagnoses Not on filedocumented in this encounter Care Teams Cna Caregiver Relationship Specialty Start Date End Date Ave Sol MD [address] [place] [address] [phone] PCP - General Family Medicine 04/16/18 documented as of this encounter
--- OUTSIDE RECORDS SUMMARY | 2025-04-15 11:28 | XMS_ITS | Encounter Summary ---
Author Organization [employer] Address [address] [facility] 7t [place] [address] Care Team Providers Care Cook Room Supervisor Name Role Phone vAe Sol MD Primary Care Provider [phone] Encounter Details Date Type Department Care Team (Late st Contact Info) Description 06/16/2022 Orders Only [facility] [address] [place] [address] Caroline Villalta LPN Social History Tobacco Use [...] Description 05/11/2025 1:15 PM EST Office Visit [facility] MED[facility]INE [address] [place] [address] Ave Sol MD [address] [place] [address] documented as of this encounter Procedures Procedure [...] 6:48 PM EST 03/11/2023 6:48 PM EST Comment:UACC Narrative [facility] - 03/13/2023 10:21 AM EST Urine Culture Report Result Urine Culture 10,000 to 50,000 cfu/ml Urine Culture Mixed bacterial krystina characteristic of Urine Culture urogenital contamination. Specimen Source: Urine clean catch us Generic External Data Provider LAB MICROBIOLOGY - GENERAL ORDERABLES Final Result Performing Organization Address [facility] Co de Phone Number [facility] [address] [place] [phone] * (ABNORMAL) Urinalysis, Complete, with Reflex to Culture (03/11/2023 6:02 PM EST) Color Urine Yellow [facility] Appearance Urine Cloudy [facility] PH 7.5 5.0 - 9.0 [facility] Glucose Urine UA Negative Negative mg/dL [facility] Urine Blood Large (3+)(A) Negative [facility] Specific Golden [place] - Urine >=1.030(H) 1.005 - 1.025 [facility] Urine Protein Negative Neg-Trace mg/dL [facility] Urine Ketones Negative Negative mg/dL [facility] Nitrite Urine Negative Negative [facility] Leukocyte Esterase Urine Negative Negative [facility] RBC Urine 11-20(A) 0 - 2 /HPF [facility] Urine WBC 6-10(A) 0 - 5 /HPF [facility] Urine Squamous Epithelial Cell 3-5 0 - 2 /HPF [facility] Urine Bacteria None Seen None Seen [facility] Hyaline Casts, Urine 0-2 0 - 2 /LPF [facility] 03/11/2023 6:02 PM EST 03/11/2023 6:12 PM EST Narrative [facility] - 03/11/2023 6:27 PM EST Urine, Clean Catch Generic External Data Provider LAB URINE ORDERAB LES Final Result Performing Organization Address [facility] Co de Phone Number [facility] [address] [place] [phone] * HCG, Qualitative, Urine (03/11/2023 6:02 PM EST) [facility] Urine NEGATIVE NEGATIVE [facility] Comment:This test was develo ped to detect early . Falsenegative results may occur after the 5th - 7th week ofpregnancy when using this test method. If clinicallyindicated, consider a serum hCG. 03/11/2023 6:02 PM EST 03/11/2023 6:12 PM EST Generic External Data Provider LAB URINE ORDERAB LES Final Result Performing Organization Address [facility] [address] [place] [phone] * High Sensitivity Troponin I (03/11/2023 5:57 PM EST) [facility] TROPONIN I HIGH SENSITIVITY <2.7 <3.5 - 17.0 ng/L [facility] Comment:The Gambino high sens itivity Troponin-I results should beused in conjunction with other diagnostic information suchas ECG, clinical observations and information, and patientsymptoms to aid in the diagnosis of DE. 03/11/2023 5:57 PM EST 03/11/2023 6:01 PM EST us Generic External Data Provider LAB BLOOD ORDERAB LES Final Result Performing Organization Address [facility] Co de Phone Number [facility] [address] [place] [phone] * Magnesium (03/11/2023 5:57 PM EST) [facility] Magnesium 2.2 1.6 - 2.6 mg/dL [facility] 03/11/2023 5:57 PM EST 03/11/2023 6:01 PM EST Generic External Data Provider LAB BLOOD ORDERAB LES Final Result Performing Organization Address [facility]/ZIP Co de Phone Number [facility] [address] [place] [phone] [phone] * (ABNORMAL) Basic Metabolic Panel (03/11/2023 5:57 PM EST) Sodium 138 135 - 145 mmol/L [facility] Potassium 4.3 3.3 - 5.1 mmol/L [facility] Chloride 108 96 - 108 mmol/L [facility] Carbon Dioxide 24 22 - 29 mmol/L [facility] Anion Gap 10(L) 12 - 20 [facility] Urea Nitrogen (BUN) 19(H) 9 - 16 mg/dL [facility] Creatinine, Serum 0.88 0.5 - 1.4 mg/dL [facility] Creatinine Clr Calc Pharmacy 93.8 [facility] Comment:Provided height and weight: 157.48 cm,86.636 kg.eGFR (calculated from the MDRD study equation) and eCrCl(calculated from the Cockcroft-Gault equation) are based ondifferent parameters and may not yield comparable results.If eCrCl result is absurd, please check patient'sheight/weight. Estimated Glomerular Filt Rate >60 [facility] Comment:NOTE: For -Am erican individuals, multiply the result by 1.210.Chronic Kidney Disease: Estimated GFR < 60 mL/min/[id number] Kidney Disease: Estimated GFR < 15 mL/min/1.73m2 Glucose 94 60 - 115 mg/dL [facility] Calcium 9.1 8.4 - 10.2 mg/dL [facility] 03/11/2023 5:57 PM EST 03/11/2023 6:01 PM EST Generic External Data Provider LAB BLOOD ORDERAB LES Final Result Performing Organization Address City/[facility]/ZIP Co de Phone Number [facility] [address] [place] [address] [phone] * Hepatic Function Panel (03/11/2023 5:57 PM EST) Bilirubin, Total 0.3 0.0 - 1.0 mg/dL [facility] Bilirubin, Direct 0.1 0.0 - 0.5 mg/dL [facility] Aspartate Amino Transferase 13 5 - 31 U/L [facility] Alanine Aminotransferase 9 0 - 31 U/L [facility] Total Protein 7.1 6.5 - 8.0 g/dL [facility] Albumin Level 4.1 3.5 - 5.0 g/dL [facility] Alkaline Phosphatase 57 39 - 117 U/L [facility] 03/11/2023 5:57 PM EST 03/11/2023 6:01 PM EST us Generic External Data Provider LAB BLOOD ORDERAB LES Final Result Performing Organization Address [facility] de Phone Number [facility] [address] [place] [phone] * Influenza A B2 ID NOW (Gambino) (03/11/2023 5:57 PM EST) IDNOW SERIAL# [id number] [facility] Influenza A Negative Negative [facility] Influenza B2 Negative Negative [facility] Influenza A B2 Note See Note [facility] Comment:The Gambino ID NOW In [...] EST us Generic External Data Provider LAB MICROBIOLOGY - GENERAL ORDERABLES Final Result [facility] [address] [place] [address] [phone] * COVID-19 ID NOW (GAMBINO) (03/11/2023 5:57 PM EST) IDNOW SERIAL# [id number] [facility] COVID-19 TEST Negative Negative [facility] COVID-19 NOTE See Note [facility] Comment: Results are for the identification of SARS-CoV2 RNA. TheSARS-CoV2 RNA is generally detectable in respiratory samplesduring the acute phase of infection. Positive results areindicative of the presence of SARS-CoV-2 RNA; clinicalcorrelation with patient history and other diagnosticinformation is necessary to determine patient infectionstatus. Positive results do not rule out bacterial infectionor co- infection with other viruses.Testing facilities within the [facility] and itsterritories are required to report all positive results [...] use by authorized laboratories.Testing performed on the Gambino ID NOW utilizing NAAT. 03/11/2023 5:57 PM EST 03/11/2023 6:01 PM EST us Generic External Data Provider LAB MOLECULAR JOSEPH GNOSTICS ORDERABLES Final Result Performing Organization Address City/[facility]/ZIP Co de Phone Number [facility] [address] [place] [address] [phone] * (ABNORMAL) CBC auto differential (03/11/2023 5:57 PM EST) White Blood Count 12.6(H) 4.8 - 10.8 X10*3/uL [facility] Red Blood Count 4.30 4.20 - 5.50 X10*6/uL [facility] Hemoglobin 8.9(L) 12.0 - 16.0 g/dl [facility] Hematocrit 30.3(L) 37.0 - 47.0 % [facility] Mean Corpuscular Volume 70.5(L) 80.0 - 98.0 fL [facility] Mean Corpuscular Hemoglobin 20.7(L) 27.0 - 33.0 pg [facility] Mean Corpuscular HGB Conc 29.4(L) 31.0 - 35.0 g/dl [facility] Red Cell Distribution Width 18.2(H) 11.0 - 16.0 % [facility] Platelet Count 429(H) 160 - 400 X10*3/uL [facility] Mean Platelet Volume 10.1 9.4 - 12.3 fL [facility] Neutrophils Percent Auto 63.3 45 - 73 % [facility] Imm Gran Pct Auto 0.4 0.0 - 0.4 % [facility] Lymphocytes Percent Auto 25.2 20 - 40 % [facility] Monocytes Percent Auto 5.1 2 - 11 % [facility] Eosinophils Percent Auto 5.2(H) 0 - 4 % [facility] Basophils Percent Auto 0.8 0 - 2 % [facility] NRBC Pct Auto 0.0 0.0 - 0.2 /100WBC [facility] Neutrophils Absolute Auto 8.0 2.0 - 8.3 x10*3/uL [facility] Imm Gran Abs Auto 0.05(H) 0.00 - 0.03 X10*3/uL [facility] Lymphocytes Absolute Auto 3.2 1.2 - 4.9 X10*3/uL [facility] Monocytes Absolute Auto 0.6 0.1 - 1.2 X10*3/uL [facility] Eosinophils Absolute Auto 0.7(H) 0.0 - 0.4 X10*3/uL [facility] Basophils Absolute Auto 0.1 0.0 - 0.2 X10*3/uL [facility] NRBC Abs Auto 0.000 0.0 - 0.012 X10*3/uL [facility] 03/11/2023 5:57 PM EST 03/11/2023 6:01 PM EST Generic External Data Provider LAB BLOOD ORDERAB LES Final Result Performing Organization Address City/[facility]/ZIP Co de Phone Number [facility] [address] [place] [address] [phone] * Culture, Urine, Routine (02/27/2023 7:07 PM EST) Urine Urine specimen obtained by clean catch procedure / Unknown 02/27/2023 7:07 PM EST 02/27/2023 7:07 PM EST Comment:UACC Narrative [facility] - 03/01/2023 9:07 AM EST Urine Culture Report Result Urine Culture 10,000 to 50,000 cfu/ml Urine Culture Mixed bacterial krystina characteristic of Urine Culture urogenital contamination. Specimen Source: Urine clean catch Generic External Data Provider LAB MICROBIOLOGY - GENERAL ORDERABLES Final Result Performing Organization Address City/[facility]/ZIP Co de Phone Number [facility] [address] [place] [phone] * (ABNORMAL) Urinalysis, Complete, with Reflex to Culture (02/27/2023 6:28 PM EST) Color Urine Yellow [facility] Appearance Urine Clear [facility] PH 6.5 5.0 - 9.0 [facility] Glucose Urine UA Negative Negative mg/dL [facility] Urine Blood Negative Negative [facility] Specific [place] - Urine >=1.030(H) 1.005 - 1.025 [facility] Urine Protein Negative Neg-Trace mg/dL [facility] Urine Ketones Negative Negative mg/dL [facility] Nitrite Urine Negative Negative [facility] Leukocyte Esterase Urine Small (1+)(A) Negative [facility] RBC Urine 0-2 0 - 2 /HPF [facility] Urine WBC 11-20(A) 0 - 5 /HPF [facility] Urine Squamous Epithelial Cell 6-10 0 - 2 /HPF [facility] Urine Bacteria Trace None Seen [facility] Hyaline Casts, Urine 0-2 0 - 2 /LPF [facility] 02/27/2023 6:28 PM EST 02/27/2023 6:30 PM EST Narrative [facility] - 02/27/2023 6:38 PM EST [id number], Clean Catch Generic External Data Provider LAB URINE ORDERAB LES Final Result Performing Organization Address [facility] Co de Phone Number [facility] [address] [place] [phone] * High Sensitivity Troponin I (02/27/2023 5:35 PM EST) [facility] TROPONIN I HIGH SENSITIVITY <2.7 <3.5 - 17.0 ng/L [facility] Comment:The Gambino high sens itivity Troponin-I results should beused in conjunction with other diagnostic information suchas ECG, clinical observations and information, and patientsymptoms to aid in the diagnosis of DE. 02/27/2023 5:35 PM EST 02/27/2023 5:38 PM EST Generic External Data Provider LAB BLOOD ORDERAB LES Final Result Performing Organization Address [facility] Co de Phone Number [facility] [address] [place] [address] [phone] * hCG, Total, Quantitative (02/27/2023 5:35 PM EST) [facility] HCG Quantitative <2 mIU/mL [facility] Comment:Weeks post LMP Appro ximate hCG(Last Menstrual Period) Range (mIU/ml)3 - 4 weeks 9 - 1304 - 5 weeks 75 - 2,6005 - 6 weeks 850 - 20,8006 - 7 weeks 4000 - 100,2007 - 12 weeks 11,500 - 289,44219 - 16 weeks 18,300 - 137,32365 - 29 weeks (2nd trimester) 1,400 - 53,43755 - 41 weeks (3rd trimester) 940 - [...] LES Final Result Performing Organization Address [facility]/ZIP Co de Phone Number [facility] [address] [place] [phone] * Magnesium (02/27/2023 5:35 PM EST) Pathologist [facility] Magnesium 2.0 1.6 - 2.6 mg/dL [facility] 02/27/2023 5:35 PM EST 02/27/2023 5:38 PM EST Generic External Data Provider LAB BLOOD ORDERAB LES Final Result Performing Organization Address [facility] Co de Phone Number [facility] [address] [place] [phone] * (ABNORMAL) Comprehensive Metabolic Panel (02/27/2023 5:35 PM EST) Sodium 140 135 - 145 mmol/L [facility] Potassium 3.9 3.3 - 5.1 mmol/L [facility] Chloride 107 96 - 108 mmol/L [facility] Carbon Dioxide 25 22 - 29 mmol/L [facility] Anion Gap 12 12 - 20 [facility] Urea Nitrogen (BUN) 20(H) 9 - 16 mg/dL [facility] Creatinine, Serum 0.87 0.5 - 1.4 mg/dL [facility] Creatinine Clr Calc Pharmacy 94.5 [facility] Comment:Provided height and weight: 157.48 cm,86.183 kg.eGFR (calculated from the MDRD study equation) and eCrCl(calculated from the Cockcroft-Gault equation) are based ondifferent parameters and may not yield comparable results.If eCrCl result is absurd, please check patient'sheight/weight. Estimated Glomerular Filt Rate >60 [facility] Comment:NOTE: For -Am erican individuals, multiply the result by 1.210.Chronic Kidney Disease: Estimated GFR < 60 mL/min/1.03r9Xdkfpa Kidney Disease: Estimated GFR < 15 mL/min/1.73m2 Glucose 88 60 - 115 mg/dL [facility] Calcium 9.6 8.4 - 10.2 mg/dL [facility] Bilirubin, Total 0.4 0.0 - 1.0 mg/dL [facility] Aspartate Amino Transferase 17 5 - 31 U/L [facility] Alanine Aminotransferase 7 0 - 31 U/L [facility] Total Protein 7.6 6.5 - 8.0 g/dL [facility] Albumin Level 4.4 3.5 - 5.0 g/dL [facility] Alkaline Phosphatase 60 39 - 117 U/L [facility] 02/27/2023 5:35 PM EST 02/27/2023 5:38 PM EST us Generic External Data Provider LAB BLOOD ORDERAB LES Final Result [facility] [address] [place], [place] [phone] * Prothrombin Time-INR (02/27/2023 5:35 PM EST) Prothrombin Time 12.2 11.1 - 13.3 SEC [facility] INTERNATIONAL NORM RATIO 1.0 0.9 - 1.1 [facility] Comment:INTERNATIONAL NORMAL IZED RATIO (INR) [...] Provider LAB BLOOD ORDERAB LES Final Result [facility] [address] [place] [address] [phone] * (ABNORMAL) CBC auto differential (02/27/2023 5:35 PM EST) White Blood Count 12.3(H) 4.8 - 10.8 X10*3/uL [facility] Red Blood Count 4.62 4.20 - 5.50 X10*6/uL [facility] Hemoglobin 9.8(L) 12.0 - 16.0 g/dl [facility] Hematocrit 32.2(L) 37.0 - 47.0 % [facility] Mean Corpuscular Volume 69.7(L) 80.0 - 98.0 fL [facility] Mean Corpuscular Hemoglobin 21.2(L) 27.0 - 33.0 pg [facility] Mean Corpuscular HGB Conc 30.4(L) 31.0 - 35.0 g/dl [facility] Red Cell Distribution Width 17.7(H) 11.0 - 16.0 % [facility] Platelet Count 435(H) 160 - 400 X10*3/uL [facility] Mean Platelet Volume 10.5 9.4 - 12.3 fL [facility] Neutrophils Percent Auto 61.8 45 - 73 % [facility] Imm Gran Pct Auto 0.3 0.0 - 0.4 % [facility] Lymphocytes Percent Auto 25.9 20 - 40 % [facility] Monocytes Percent Auto 5.7 2 - 11 % [facility] Eosinophils Percent Auto 5.4(H) 0 - 4 % [facility] Basophils Percent Auto 0.9 0 - 2 % [facility] NRBC Pct Auto 0.0 0.0 - 0.2 /100WBC [facility] Neutrophils Absolute Auto 7.6 2.0 - 8.3 x10*3/uL [facility] Imm Gran Abs Auto 0.04(H) 0.00 - 0.03 X10*3/uL [facility] Lymphocytes Absolute Auto 3.2 1.2 - 4.9 X10*3/uL [facility] Monocytes Absolute Auto 0.7 0.1 - 1.2 X10*3/uL [facility] Eosinophils Absolute Auto 0.7(H) 0.0 - 0.4 X10*3/uL [facility] Basophils Absolute Auto 0.1 0.0 - 0.2 X10*3/uL [facility] NRBC Abs Auto 0.000 0.0 - 0.012 X10*3/uL [facility] 02/27/2023 5:35 PM EST 02/27/2023 5:38 PM EST us Generic External Data Provider LAB BLOOD ORDERAB LES Final Result Performing Organization Address City/State/[facility] Co de Phone Number [facility] [address] [place] [phone] documented in this encounter Visit Diagnoses Not on filedocumented in this encounter Care Teams Cook Room Supervisor Relationship Specialty Start Date End Date Ave Sol MD [address] [place] [phone] PCP - General Family Medicine 04/16/18 documented as of this encounter
--- OUTSIDE RECORDS SUMMARY | 2025-04-15 11:28 | XMS_ITS | Encounter Summary ---
Author Organization [employer] Address [address] [facility] [address] [place] [address] Care Team Providers Care Real Estate Valuer Name Role Phone Ave Sol MD Primary Care Provider [phone] Reason for Referral * Imaging (Routine) - Closed Specialty Diagnoses / Procedures Referred By Heidyac t Referred To Contact Radiology Diagnoses Corpus luteum cyst of left ovary Procedures US Pelvis Transvaginal Ave Sol MD [address] [place], [place] Phone: tel: fax: [address] [phone] Phone: tel: fax: Referral ID Status Reason Start Date Expiration Date Visits Re quested Visits Authorized [id number] Closed 06/03/2024 06/03/2025 1 1 * Imaging (Routine) - Closed Specialty Diagnoses / Procedures Referred By Contac t Referred To Contact Radiology Diagnoses Corpus luteum cyst of left ovary Procedures Us Pelvis complete Ave Sol MD [address] [place] [address] Phone: tel: fax: [address] [phone] Phone: tel: fax: Referral ID Status Reason Start Date Expiration Date Visits Re quested Visits Authorized [id number] Closed 06/03/2024 06/03/2025 1 1 Encounter Details Date Type Department Care Team (Late st Contact Info) Description 06/03/2024 Orders Only [facility] [address] [place] [address] [address] Sol MD [address] [place] [address] Corpus luteum cyst of left ovary (Primary [...] Description 05/11/2025 1:15 PM EST Office Visit [facility] [address] [place] [address] Ave Sol MD [address] [place] [address] Scheduled Orders Name Type Priority Associated Diagnoses [...] PM EST Narrative 06/09/2024 6:25 PM EST [address] [address] XRay Report Signed Patient: Seda Berg MR#: [id number] 020 : 1990 Acct:[id number] Age/Sex: 33 / F ADM Date: 06/09/24 Loc: HO.ED Attending Dr: Ordering Physician: Lorrie Jasso Date of Service: 06/09/24 Procedure(s): XR chest 2V Accession Number(s): [id number] cc: Lorrie Jasso; Ave Sol MD CLINICAL [...] in OV> 06/09/241824 DD/ 23 TD/TT: 06/09/241823 Mica Patcher: Procedure Note Donotuseinterpreter, Image - 06/09/2024 [place] [address] XRay Report Signed Patient: Seda Berg LMR#: [id number] 020 : 1990Acct:[id number] Age/Sex: 33 / FADM Date: 06/09/24 Loc: .ED Attending Dr: Ordering Physician: Lorrie Jasso Date of Service: 06/09/24 Procedure(s): XR chest 2V Accession Number(s): [id number] cc: Lorrie Jasso; Ave Sol MD CLINICAL [...] in OV> 06/09/241824 DD/ 23 TD/TT: 06/09/241823 Mica Patcher: us [facility] External Provider IMG XR PROCEDURES Final Result * CT Cervical Spine w/o Contrast (06/09/2024 6:11 PM EST) Anatomical Region Laterality Modality Spine, C-spine Computed Tomogra phy 06/09/2024 6:11 PM EST Narrative 06/09/2024 6:12 PM EST [address] [address] [address] Scan Report Signed Patient: Seda Berg MR#: [id number] 020 : 1990 Acct:[id number] Age/Sex: 33 / F ADM Date: 06/09/24 Loc: HO.ED Attending Dr: Ordering Physician: Lorrie Jasso Date of Service: 06/09/24 Procedure(s): CT cervical spine wo IV con Accession Number(s): [id number] cc: Lorrie Jasso; Ave Sol MD Report Number: [id number]: Total DLP = 1243.00 mGy-cm CLINICAL HISTORY: [...] in OV> 06/09/241810 DD/ 10 TD/TT: 06/09/241810 Mica Patcher: Procedure Note Donotuseinterpreter, Image - 06/09/[address] [address] [address] Scan Report Signed Patient: Seda Berg LMR#: [id number] 020 : 1990Acct:[id number] Age/Sex: 33 / FADM Date: 06/09/24 Loc: HO.ED Attending Dr: Ordering Physician: Lorrie Jasso Date of Service: 06/09/24 Procedure(s): CT cervical spine wo IV con Accession Number(s): [id number] cc: Lorrie Jasso; Ave Sol MD Report Number: [id number]: Total DLP = 1243.00 mGy-cm CLINICAL HISTORY: [...] in OV> 06/09/241810 DD/ 10 TD/TT: 06/09/241810 Mica Patcher: [facility] External Provider IMG CT PROCEDURES Final Result * CT Head w/o Contrast (06/09/2024 6:10 PM EST) Anatomical Region Laterality Modality Head, Neck Computed Tomogra phy 06/09/2024 6:10 PM EST Narrative 06/09/2024 6:11 PM EST [place] [address] CT Scan Report Signed Patient: Seda Berg MR#: [id number] 020 : 1990 Acct:[id number] Age/Sex: 33 / F ADM Date: 06/09/24 Loc: HO.ED Attending Dr: Ordering Physician: Lorrie Jasso Date of Service: 06/09/24 Procedure(s): CT head/brain wo IV con Accession Number(s): [id number] cc: Lorrie Jasso; Ave Sol MD Report Number: [id number]: Total DLP = 0.00 mGy-cm CLINICAL HISTORY: [...] in OV> 06/09/241809 DD/ 09 TD/TT: 06/09/241809 Mica Patcher: Procedure Note Donotuseinterpreter, Image - 06/09/[address] [place] [address] [address] Scan Report Signed Patient: Seda Berg LMR#: [id number] 020 : 1990Acct:[id number] Age/Sex: 33 / FADM Date: 06/09/24 Loc: HO.ED Attending Dr: Ordering Physician: Lorrie Jasso Date of Service: 06/09/24 Procedure(s): CT head/brain wo IV con Accession Number(s): [id number] cc: Lorrie Jasso; Ave Sol MD Report Number: [id number]: Total DLP = 0.00 mGy-cm CLINICAL HISTORY: [...] in OV> 06/09/241809 DD/ 09 TD/TT: 06/09/241809 Mica Patcher: [facility] External Provider IMG CT PROCEDURES Final Result documented in this encounter Visit Diagnoses Diagnosis Corpus luteum cyst of left ovary- Primary documented in this encounter Additional Health Concerns Assessment Noted Time PHQ-9 Depression Total Score: 6 02/04/20 24 1:31 PM EDT documented as of this encounter Care Teams Real Estate Valuer Relationship Specialty Start Date End Date Ave Sol MD [address] [place] [id number] PCP - General Family Medicine 04/16/18 documented as of this encounter
== END 2025-04-15 10:22 | disposition home or self-care (01) ==
LOC: HO.HHCX 10:21
DX: R07.9 Chest pain, unspecified (principal)
CPT/HCPCS: 71046

== ENCOUNTER → 2025-04-15 10:25 | Outpatient (BNV) | payer MEDICAID, SELFPAY | PROVIDERS: Visit Provider Radiology Diagnostic Radiology | DX: R07.9 Chest pain, unspecified (principal) | CPT/HCPCS: 71046 ==